=== PATIENT | female | born 1945 | race Caucasian/White ===

== ENCOUNTER 2016-11-03 14:01 | Inpatient (IN) | payer OTHER, MEDICARE ==
--- NOTE | 2016-11-03 14:30 | EDPHY ---
H & P Stated Complaint: Depression - Personal History Current Tetanus/Diphtheria Vaccine: Yes Current Tetanus Diphtheria and Acellular Pertussis (TDAP): Yes Tetanus Vaccine Date: unknown - Medical/Surgical History Hx Asthma: No Hx Chronic Respiratory Disease: No Hx Diabetes: No Hx Cardiac Disease: No Hx Renal Disease: No Hx Cirrhosis: No Hx Alcoholism: No Hx HIV/AIDS: No Hx Splenectomy or Spleen Trauma: No Other PMH: ovarian cyst removal; appendectomy; broken right wrist; laminectomy - Social History Smoking Status: Never smoked Time Seen by Provider: 11/03/16 14:29 Constitutional: Initial Vital Signs Temperature (C) 36.9 C 11/03/16 14:04 Heart Rate 61 11/03/16 14:04 Respiratory Rate 16 11/03/16 14:04 Blood Pressure 151/83 H 11/03/16 14:04 O2 Sat (%) 96 11/03/16 14:04 O2 Delivery Mode Room Air Allergies/Adverse Reactions: codeine [Codeine] Allergy (Severe, Verified 07/11/13 15:48) VOMIT Home Medications: Medication Instructions Recorded Aspirin [Aspirin 81mg (*)] 81 mg PO HS 08/27/14 Cholecalciferol (Vitamin D3) 5,000 unit PO DAILY 08/27/14 [Vitamin D3] Nebivolol HCl [Bystolic 5 mg (*)] 5 mg PO HS 08/27/14 Pravastatin Sodium 10 mg PO HS 08/27/14 QUEtiapine FUMARATE [Seroquel 25 25 mg PO HS PRN 08/27/14 mg (*)] Sennosides [Senokot] 1 - 2 each PO DAILY PRN 08/27/14 Ibuprofen [Motrin (*)] 800 mg PO Q6 PRN #50 tab 09/04/14 Topamax 25 mg PO BID 06/08/16 Medical Decision Making ED Course/Re-evaluation: CHIEF COMPLAINT: Psychiatric evaluation HISTORY OF PRESENT ILLNESS: The patient is a 71 y/o female, with a history of depression and bipolar disorder, arriving to the ED at the referral of her psychiatrist due to persistent depression over the last few months. Per her psychiatrist, the patient is struggling to care for a with a CVA and her depression is worsening. Her psychiatrist recommends admission. The patient says she goes through periodic episodes of depression, but this time it has not improved. She is compliant with her medication. She denies suicidal or homicidal ideation. No recent trauma or illness. REVIEW OF SYSTEMS: A 10 point review of systems was performed and is negative with the exception of the elements mentioned in the history of present illness. PHYSICAL EXAM: General Appearance: Alert, well hydrated, appropriate, and non-toxic appearing. Head: Atraumatic without scalp tenderness or obvious injury Eyes: Pupils equal, round, reactive to light and accommodation, EOMI, no trauma , no injection. Ears: Clear bilaterally, no perforation, normal landmarks Nose: Atraumatic, no rhinorrhea, clear. Throat: There is no erythema or exudates, no lesions, normal tonsils, mucus membranes moist. Neck: Supple, 2+ carotid upstroke, nontender, no lymphadenopathy. Respiratory: No retractions, no distress, no wheezes, and no accessory muscle use. Lungs are clear to auscultation bilaterally. Cardiovascular: Regular rate and rhythm, no murmurs, rubs, or gallops. Bilateral carotid, radial, dorsalis pedis, and posterior tibial pulses intact. Good capillary refill all extremities. Gastrointestinal: Abdomen is soft, nontender, non-distended, no masses, no rebound, no guarding, no peritoneal signs. Musculoskeletal: Normal active ROM of all extremities, atraumatic. Neurological: Alert, appropriate, and interactive. The patient has normal DTRs and non-focal cranial nerves, motor, sensory, and cerebellar exam. Skin: No rashes, good turgor, no nodules on palpation. 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 DIFFERENTIAL DIAGNOSIS: The differential diagnosis for the patient's depression included but was not limited to functional and major depression, situational depression, medication side effect, drugs, and alcohol abuse. MEDICAL DECISION MAKING: Patient is in no acute distress and is hemodynamically stable. We are awaiting psychiatric team's evaluation. Patient has known history of psychiatric disorders and is here for evaluation. 1924: Mental health inventory planner recommends admission, likely to [facility]SU. 2152: Mental health provider requests UA, TSH, and lithium level labs. 2153: Patient care signed out to Dr. Hanna at shift change pending placement. ( Delano Yusuf) [address] Yusuf pending placement. 2310 t has been accepted to 3N by Dr Madrigal, EMTALA is completed. (Gerardo Hanna) - Data Points Laboratory Results: Laboratory Results 11/03/16 14:45 11/03/16 14:45 11/03/16 11/03/16 11/03/16 14:45 14:45 14:45 WBC 8.17 10^3/uL 10^3/uL (3.80-9.50) RBC 4.53 10^6/uL 10^6/uL (4.18-5.33) Hgb 13.0 g/dL g/dL (12.6-16.3) Hct 39.7 % % (38.0-47.0) MCV 87.6 fL fL (81.5-99.8) MCH 28.7 pg pg (27.9-34.1) MCHC 32.7 g/dL g/dL (32.4-36.7) RDW 13.7 % % (11.5-15.2) Plt Count 270 10^3/uL 10^3/uL (150-400) MPV 10.0 fL fL (8.7-11.7) Neut % (Auto) 61.6 % % (39.3-74.2) Lymph % (Auto) 26.7 % % (15.0-45.0) Armstrong % (Auto) 10.5 % % (4.5-13.0) Eos % (Auto) 0.4 % L % (0.6-7.6) Baso % (Auto) 0.6 % % (0.3-1.7) Nucleat RBC Rel Count 0.0 % % (0.0-0.2) Absolute Neuts (auto) 5.03 10^3/uL 10^3/uL (1.70-6.50) Absolute Lymphs (auto) 2.18 10^3/uL 10^3/uL (1.00-3.00) Absolute Monos (auto) 0.86 10^3/uL H 10^3/uL (0.30-0.80) Absolute Eos (auto) 0.03 10^3/uL 10^3/uL (0.03-0.40) Absolute Basos (auto) 0.05 10^3/uL 10^3/uL (0.02-0.10) Absolute Nucleated RBC 0.00 10^3/uL 10^3/uL (0-0.01) Immature Gran % 0.2 % % (0.0-1.1) Immature Gran # 0.02 10^3/uL 10^3/uL (0.00-0.10) Sodium 140 mEq/L mEq/L (134-144) Potassium 4.1 mEq/L mEq/L (3.5-5.2) Chloride 102 mEq/L mEq/L (97-110) Carbon Dioxide 25 mEq/l mEq/l (22-31) Anion Gap 13 mEq/L mEq/L (8-16) BUN 12 mg/dL mg/dL (7-23) Creatinine 0.7 mg/dL mg/dL (0.6-1.0) Estimated GFR > 60 Glucose 92 mg/dL mg/dL (70-100) Calcium 10.5 mg/dL H mg/dL (8.5-10.4) TSH Pending Urine Color Urine Appearance Urine pH Ur Specific [place] Urine Protein Urine Ketones Urine Blood Urine Nitrate Urine Bilirubin Urine Urobilinogen Ur Leukocyte Esterase Ur Culture Indicated? Urine Glucose Salicylates < 1.0 mg/dL L mg/dL (2.0-20.0) Urine Opiates Screen Acetaminophen < 10 mcg/mL L mcg/mL (10.0-30.0) Urine Barbiturates Ur Phencyclidine Scrn Ur Amphetamine Screen U Benzodiazepines Scrn [place] 0.5 mEq/L L mEq/L (0.6-1.2) Urine Cocaine Screen U Marijuana (THC) Screen Ethyl Alcohol < 10 mg/dL mg/dL (0-10) 11/03/16 11/03/16 14:35 14:35 WBC RBC Hgb Hct MCV MCH MCHC RDW Plt Count MPV Neut % (Auto) Lymph % (Auto) Armstrong % (Auto) Eos % (Auto) Baso % (Auto) Nucleat RBC Rel Count Absolute Neuts (auto) Absolute Lymphs (auto) Absolute Monos (auto) Absolute Eos (auto) Absolute Basos (auto) Absolute Nucleated RBC Immature Gran % Immature Gran # Sodium Potassium Chloride Carbon Dioxide Anion Gap BUN Creatinine Estimated GFR Glucose Calcium TSH Urine Color YELLOW Urine Appearance CLEAR Urine pH 6.0 (5.0-7.5) Ur Specific [place] 1.008 (1.002-1.030) Urine Protein NEGATIVE (NEGATIVE) Urine Ketones NEGATIVE (NEGATIVE) Urine Blood NEGATIVE (NEGATIVE) Urine Nitrate NEGATIVE (NEGATIVE) Urine Bilirubin NEGATIVE (NEGATIVE) Urine Urobilinogen NEGATIVE EU EU (0.2-1.0) Ur Leukocyte Esterase TRACE H (NEGATIVE) Ur Culture Indicated? INDICATED H (NI) Urine Glucose NEGATIVE (NEGATIVE) Salicylates Urine Opiates Screen NEGATIVE (NEGATIVE) Acetaminophen Urine Barbiturates NEGATIVE (NEGATIVE) Ur Phencyclidine Scrn NEGATIVE (NEGATIVE) Ur Amphetamine Screen NEGATIVE (NEGATIVE) U Benzodiazepines Scrn NEGATIVE (NEGATIVE) [place] Urine Cocaine Screen NEGATIVE (NEGATIVE) U Marijuana (THC) Screen NEGATIVE (NEGATIVE) Ethyl Alcohol Departure - Departure Disposition: [facility] IP Clinical Impression: Severe major depression Condition: Good Referrals: Alin Carreon MD [Primary Care Provider] - As per Instructions Report Scribed for: Delano Yusuf Report Scribed by: Nallely Lauren Date of Report: 11/03/16 Time of Report: 14:37
[2016-11-03 14:58] LABS: % IMMATURE GRANULYOCYTES 0.2 % (0.0-1.1); ABSOLUTE IMMATURE GRANULOCYTES 0.02 10^3/uL (0.00-0.10); ADD DIFF? NO; ADD MORPH? NO; ADD SCAN? NO; ATYPICAL LYMPHOCYTE FLAG 10 (0-99); FRAGMENT RBC FLAG 0 (0-99); HEMATOCRIT 39.7 % (38.0-47.0); LEFT SHIFT FLG 0 (0-99); LIPEMIA HEMOLYSIS FLAG 80 (0-99); MEAN CELL HEMOGLOBIN 28.7 pg (27.9-34.1); MEAN CELL HEMOGLOBIN CONCENTR. 32.7 g/dL (32.4-36.7); MEAN CELL VOLUME 87.6 fL (81.5-99.8); PLATELET CLUMPS FLAG 20 (0-99); PLATELET COUNT 270 10^3/uL (150-400); RED BLOOD CELL COUNT 4.53 10^6/uL (4.18-5.33); RED CELL DISTRIBUTION WIDTH 13.7 % (11.5-15.2)
[2016-11-03 15:10] LABS: ANION GAP 13 mEq/L (8-16); CALCIUM 10.5 mg/dL (8.5-10.4); CARBON DIOXIDE 25 mEq/l (22-31); CHLORIDE 102 mEq/L (97-110); CREATININE 0.7 mg/dL (0.6-1.0); ETHANOL SERUM < 10 mg/dL (0-10); GLOMERULAR FILTRATION RATE > 60; GLUCOSE 92 mg/dL (70-100); POTASSIUM 4.1 mEq/L (3.5-5.2); SALICYLATE < 1.0 mg/dL (2.0-20.0); SODIUM 140 mEq/L (134-144)
[2016-11-03 23:03] LABS: LITHIUM 0.5 mEq/L (0.6-1.2)
[2016-11-03 23:05] LABS: COLOR YELLOW; LEUKOCYTE ESTERASE,URINE TRACE (NEGATIVE); NITRITE,URINE NEGATIVE (NEGATIVE)
[2016-11-03 23:08] LABS: BACTERIA TRACE /hpf (NONE SEEN)
[2016-11-04] MEDS ORDERED: NICOTINE POLACRILEX 2 MG GUM B PRN (00:45)
[2016-11-04] MEDS ORDERED: LORazepam 0.5 MG TAB PO PRN (00:45)
[2016-11-04] MEDS ORDERED: ACETAMINOPHEN 325 MG TAB PO PRN (00:45)
[2016-11-04] MEDS ORDERED: MAG HYDROX/AL HYDROX/SIMETH 30 ML UDCUP PO PRN (00:45)
--- NOTE | 2016-11-04 15:22 | BCON ---
[f rep st] BEHAVIORAL HEALTH CONSULTATION INTERNAL MEDICINE CONSULTATION. DATE OF CONSULTATION: 11/04/2016 REFERRING PHYSICIAN: Jarrett Paez MD REASON FOR REFERRAL: Medical clearance for inpatient behavioral health stay. HISTORY OF PRESENT ILLNESS: Mrs. Watters was admitted yesterday through the emergency department where she presented having been sent by her psychiatrist for persistent depression, lasting several months. The ED note reports that per her psychiatrist, she had been struggling to care for her with a CVA and has had worsening depression. She was evaluated by the mental health team and admitted for further psychiatric care. She is without acute medical complaints though she has a reduced appetite and prefers to not have to take medications more than once a day. She reports that she has been noncompliant with her medications for several days. PAST MEDICAL HISTORY: 1. Bipolar disorder. 2. Hypertension. 3. Nonobstructive coronary artery disease. 4. Osteoporosis. 5. Right wrist fracture. 6. Fracture in the right foot. PAST SURGICAL HISTORY: She has had ORIF of the right wrist. She has had a hysterectomy and a bladder suspension. ALLERGIES: There is an allergy listed to codeine. MEDICATIONS: Medications at home are listed as aspirin 81 mg p.o. at bedtime, cholecalciferol 5000 units p.o. daily, nebivolol 5 mg p.o. at bedtime though she reports she takes carvedilol, pravastatin 10 mg p.o. at bedtime, quetiapine 20 mg p.o. at bedtime, senna 1 to 2 p.o. daily p.r.n. ibuprofen 800 mg p.o. q.6 hours p.r.n., and topiramate 25 mg p.o. twice daily. 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 She lives with her . She is a nonsmoker. Nondrinker. FAMILY HISTORY: Noncontributory. REVIEW OF SYSTEMS: She reports approximately a 20-pound weight loss and a 6 kg weight loss documented in recent months in the chart. She reports a reduced appetite. She denies pain, fevers, chills, feeling excessively hot or cold, diaphoresis, chest pain, palpitations, cough, dyspnea, nausea, vomiting, constipation, diarrhea, or dysuria. Otherwise a 10-point review of systems is negative. PHYSICAL EXAMINATION: VITAL SIGNS: Blood pressure at 1 o'clock this morning was 184/84, heart rate was 67, respiratory rate was 16, oxygen saturation was 96 % on room air, temperature was 36.5 degrees centigrade. Her weight is 54.4 kg for a body mass index of 23.4. GENERAL: This is a well-nourished, well- developed woman who appears her chronologic age. Cooperative and in no acute distress. HEENT: Extraocular movements are intact. Pupils are equal, round, and reactive to light. Mucous membranes are moist. Dentition is in good condition. NECK: Supple. HEART: There is a regular rate and rhythm with no murmurs, rubs, or gallops. LUNGS: Clear to auscultation bilaterally. ABDOMEN : Soft, nontender, nondistended with normoactive bowel sounds. EXTREMITIES. There is no cyanosis, clubbing, or edema. Radial pulses are 2+ bilaterally. Pedal pulses are not palpable. NEUROLOGICAL: She is alert and oriented x3. She has a very flat affect. Cranial nerves 2-12 are grossly intact. There is no focal weakness. Sensation is intact to light touch and gait is within normal limits. LABORATORY DATA: Laboratory studies drawn in the emergency department revealed CBC which was within normal limits but for a relative decrement of eosinophils at 0.4% and a slight predominance of monocytes at 0.86. Serum chemistry showed a slightly high calcium at 10.5. Otherwise renal function and electrolytes were within normal limits. TSH was normal at 2.3. Urinalysis showed trace leukocyte esterase and 3-5 white blood cells, and a culture is pending. Toxicology screen in the serum revealed a low lithium level at 0.5. Salicylates , acetaminophen and ethyl alcohol were not detectable and urine drug screen was negative for substances of abuse. ASSESSMENT AND RECOMMENDATIONS: 1. Mental health issues pending further evaluation and management per Psychiatry and the mental health team. 2. Hypertension. There are no antihypertensives ordered. She prefers a daily medication to twice daily. I will prescribe the nebivolol 5 mg q.h.s. as it is listed in her summary of her outpatient medications. 3. Coronary artery disease, nonobstructive. Would continue aspirin and I will prescribe this. 4. Osteoporosis with history of radial fracture and a DEXA showing a T-score of -3.5, at the forearm. She should continue cholecalciferol as well as calcium supplement and consider antiresorptive therapy. With the elevated calcium, it would be reasonable to evaluate for hyperparathyroidism as well. I will add these appropriate labs onto the sample that was drawn yesterday. 5. Hypercalcemia of unclear etiology. Whether there might be hyperparathyroidism will be determined with labs. Psychiatry might contemplate whether or not it is related to long-term lithium therapy. 6. Weight loss with a normal TSH. Appears most likely to be related to her depression. Would observe for improvement in her appetite as depression is treated. 7. Possible peripheral vascular disease and possible cerebrovascular disease. There was a head CT done 2 years ago which showed evidence of an old stroke. She has no palpable pulses in her feet and with her history of hypertension, it is reasonable to suspect that she has vascular disease. She was previously on pravastatin. I hesitate to add a lot of medications while she has anorexia and weight loss but this should be continued after her discharge. Psychiatry might consider cognitive evaluation in this previously high functioning woman who was a microbiologist if her cognition does not seem to normalize with treatment of her depression. I see no medical contraindications to the patient's continued stay on the inpatient behavioral health unit or to any psychiatric medications or procedures. Thank you very much for including me in the care of this patient. Please do not hesitate to contact me or the hospitalist service should there be need for further medical evaluation. /[id number]/MODL MTDD
[2016-11-04 16:35] LABS: ALBUMIN 4.6 g/dL (3.5-5.0); CALCIUM 10.6 ng/dL (8.5-10.4); CREATININE 0.7 mg/dL (0.6-1.0)
[2016-11-04] MEDS: amLODIPine BESYLATE 5 MG TAB PO SCH (16:44)
[2016-11-04 16:47] LABS: PTH INTACT NO MINERALS 59.5 pg/ml (10.8-79.4)
[2016-11-04] MEDS: MAGNESIUM HYDROXIDE 30 ML UDCUP PO PRN (19:22)
[2016-11-04] MEDS: NEBIVOLOL HCL 5 MG TAB PO SCH (20:47)
[2016-11-05] MEDS: amLODIPine BESYLATE 5 MG TAB PO SCH (08:38)
[2016-11-05] MEDS: ASPIRIN EC 81 MG TAB PO SCH (08:52)
[2016-11-05] MEDS: CHOLECALCIFEROL VIT D3 2,000 UNITS TAB/CAP PO SCH (08:52)
--- NOTE | 2016-11-05 10:37 | SOAPPROG ---
SOAP Progress Note Assessment/Plan: Assessment: Plan: Objective: Vital Signs Temp Pulse Resp BP Pulse Ox 36.4 C 83 14 181/91 H 97 11/05/16 08:24 11/05/16 08:24 11/05/16 06:22 11/05/16 08:38 11/05/16 08:24 - Pending Discharge Pending Discharge Within 24 Hours: No Pending Discharge Within 48 Hours: No ICD10 Worksheet Patient Problems: Problems Problem Status Onset Bipolar 1 disorder, manic, moderate Acute Cystocele, midline Acute
[2016-11-05] MEDS: NEBIVOLOL HCL 5 MG TAB PO SCH (20:32)
[2016-11-05] MEDS ORDERED: QUEtiapine FUMARATE 25 MG TAB PO PRN (20:45)
[2016-11-05] MEDS: QUEtiapine FUMARATE 25 MG TAB PO SCH (21:01)
[2016-11-05] MEDS: LITHIUM CARBONATE ER 450 MG TAB PO SCH (21:01)
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
[2016-11-06] MEDS: CHOLECALCIFEROL VIT D3 2,000 UNITS TAB/CAP PO SCH (09:15)
[2016-11-06] MEDS: amLODIPine BESYLATE 5 MG TAB PO SCH (09:19)
[2016-11-06] MEDS: ASPIRIN EC 81 MG TAB PO SCH (09:20)
[2016-11-06] MEDS: LITHIUM CARBONATE ER 450 MG TAB PO SCH (20:58)
[2016-11-06] MEDS: NEBIVOLOL HCL 5 MG TAB PO SCH (20:58)
[2016-11-06] MEDS: QUEtiapine FUMARATE 25 MG TAB PO SCH (20:58)
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
[2016-11-07] MEDS: ARIPiprazole 2 MG TAB PO SCH (08:46)
[2016-11-07] MEDS: amLODIPine BESYLATE 5 MG TAB PO SCH (08:47)
[2016-11-07] MEDS: ASPIRIN EC 81 MG TAB PO SCH (08:47)
[2016-11-07] MEDS: CHOLECALCIFEROL VIT D3 2,000 UNITS TAB/CAP PO SCH (08:49)
--- NOTE | 2016-11-07 14:54 | SOAPPROG ---
SOAP Progress Note Assessment/Plan: Assessment: Plan: 11/07/16 14:26 DAY 4 UPDATE: 71 y/o MWF admitted to [address] ED after referred to ED by her [facility] psychiatrist for c/o depressive acuity with SI. Pt has h/o chronic depressove sx of recurrent nature and also has had 2 known manic episodes - most recently shortly before this admission with a subseguent switch into acute syndromal depression. major stressors a/w marital instability and pt initiating a divorce process which her resisted 3 months ago. 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 She'd been taking [id number] mg qd and [place] 150 mg bid PEDIATRIC HOSPITALIST. Her compliance with meds is uncertain PEDIATRIC HOSPITALIST and she'd not kept up with her outpt therapist. since admission she's continued to c/o vegetative sx, has poor po intake, but is beginning to disclose more openly with staff. Currently complying with inpt meds as referenced; not observed to be psychotic or actively suicidal. 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 No evidence for psychosis ASSESSMENT/PLAN: residual depressive acuity but allied with rx plan/ will reassess meds, obtain [place] level, Team to obtain history from P and son Objective: Vital Signs Temp Pulse Resp BP Pulse Ox 36.9 C 66 16 136/78 H 96 11/07/16 08:29 11/07/16 08:29 11/07/16 08:29 11/07/16 08:29 11/07/16 08:29 ICD10 Worksheet Patient Problems: Problems Problem Status Onset Bipolar 1 disorder, manic, moderate Acute Cystocele, midline Acute
[2016-11-07] MEDS: NEBIVOLOL HCL 5 MG TAB PO SCH (21:07)
[2016-11-07] MEDS: LITHIUM CARBONATE ER 450 MG TAB PO SCH (21:07)
[2016-11-07] MEDS: MAGNESIUM HYDROXIDE 30 ML UDCUP PO PRN (21:07)
[2016-11-07] MEDS: QUEtiapine FUMARATE 25 MG TAB PO PRN (21:10)
[2016-11-08] MEDS: ARIPiprazole 2 MG TAB PO SCH (08:26)
[2016-11-08] MEDS: amLODIPine BESYLATE 5 MG TAB PO SCH (08:28)
[2016-11-08] MEDS: CHOLECALCIFEROL VIT D3 2,000 UNITS TAB/CAP PO SCH (08:29)
[2016-11-08] MEDS: ASPIRIN EC 81 MG TAB PO SCH (08:29)
--- NOTE | 2016-11-08 17:00 | BAPA ---
[f rep st] ADMISSION PSYCHIATRIC ASSESSMENT DATE OF SERVICE: 11/04/2016 This dictation is from an evaluation performed on 11/04/2016. Due to an inadvertent oversight, I ne glected to dictate it at the time. This dictation is made from notes taken on 11/04/2016. CHIEF COMPLAINT: "There is no hope for me." HISTORY OF PRESENT ILLNESS: Patient is a 71-year-old, female with history of recurrent ma trey depression. She presented to the emergency department for psychiatric evaluation due to a recen t decline. She had seen her psychiatrist, Dr. Angie Chavira at [facility] who stro ngly recommended to her that she come due to worsening condition and suicidality. She states that s he has had numerous stressors recently as she and her had tried to go through divorce and fo und it to be too complicated and stressful and that her had a CVA about 2 years ago and this has caused a lot of stress between them. She states that she had to care for him but that recently she has felt so overwhelmed with her depression that he has had to care for her. She states that s he has not been eating or bathing and has lost 20 pounds in the past month. She has had trouble sle eping with inability to fall asleep or stay asleep and states she sleeps less than 2 hours per night . She has no energy and motivation and has suffered significant anhedonia. She reports having with drawn from family and friends and has not been taking care of responsibilities such as cleaning or t aking care of the bills. Patient feels very ashamed and states that she wants to . She has been taking lithium and Lexapro though the Lexapro was a recent addition about 2 weeks ago. PAST PSYCHIATRIC HISTORY: Significant for a history of depression for many years though she has als o been diagnosed with bipolar disorder due to a manic episode in 2012. She states she has not ever been hospitalized for psychiatric purposes and has had no history of suicide attempts. She sees Dr. Chavira at [facility] and a therapist, Betsey Motta. She states she has not been going recently because she feels ashamed that she has relapsed with her illness. ALLERGIES: Codeine. CURRENT MEDICATIONS: Coreg 12.5 mg daily, vitamin D3 5000 units daily, Lexapro 10 mg daily, lithium carbonate 150 mg twice daily. PAST MEDICAL HISTORY: Significant for a history of hypertension. She also may have had a CVA in 20 00 although details of this are unknown. SOCIAL HISTORY: Patient has been for 40 years. She is really from [place] but came to [facility] in 1991. She has 3 children aged 41, 39 and 30. 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 She notes some financial issues and problems with her 's health as her primary stre sses at this time. FAMILY HISTORY: The patient states that her mother was always depressed though she is not aware alonzo t she was ever treated. ADMISSION LABORATORY: CBC is normal. Serum chemistries are normal. Calcium slightly up at 10.6 an d TSH is normal at 2.3. Urinalysis reveals trace LE positive, 3-5 white cells. [place] level on ad mission was 0.5. MENTAL STATUS EXAMINATION: A healthy appearing, though marginally groomed, female. She i nteracts well with the examiner, maintaining good eye contact and overall calm and pleasant demeanor . There is significant degree of psychomotor retardation noted. Her affect is blunted, dysphoric, stable and appropriate. Her mood is described as "really depressed." Her thought process is linear and goal directed. Her thought content reveals no evidence of psychosis. She is alert and oriente d to person, place, time, and situation, and her sensorium is clear. She continues to endorse thoug hts of suicide, stating that she is helpless and hopeless and just wants to . Her intellect appe ars to be above average as evidenced by her educational and occupational histories, fund [facility], and vocabulary. Her insight and judgment appear to be good. IMPRESSION: Bipolar 1 disorder, most recent episode depressed, severe, without psychosis. Marital conflict. Chronic illness, recurrent illness. Marginal supports. The patient is a 71-year-old, female with a history of recurrent bipolar depression. She presents at this time severely depressed with significant neurovegetative dysfunction, anorexia, whit ght loss, and suicidality. She has been taking the Lexapro and lithium and will continue these for now until we can hopefully communicate with Dr. Chavira and/or make other treatment decisions drive n by her observation. Estimated length of stay is 7-10 days. /[id number]/MODL
[2016-11-08] MEDS: NEBIVOLOL HCL 5 MG TAB PO SCH (20:39)
[2016-11-08] MEDS: QUEtiapine FUMARATE 25 MG TAB PO PRN (20:40)
[2016-11-09] MEDS: LITHIUM CARBONATE ER 450 MG TAB PO SCH (08:48)
[2016-11-09] MEDS: amLODIPine BESYLATE 5 MG TAB PO SCH (08:52)
[2016-11-09] MEDS: ASPIRIN EC 81 MG TAB PO SCH (08:56)
[2016-11-09] MEDS: CHOLECALCIFEROL VIT D3 2,000 UNITS TAB/CAP PO SCH (08:56)
[2016-11-09] MEDS ORDERED: PSYLLIUM METAMUCIL 1 PKT PO SCH (09:00)
[2016-11-09] MEDS ORDERED: ARIPiprazole 5 MG TAB PO SCH (09:00)
[2016-11-09] MEDS: MAGNESIUM HYDROXIDE 30 ML UDCUP PO PRN (12:58)
--- NOTE | 2016-11-09 16:53 | SOAPPROG ---
SOAP Progress Note Assessment/Plan: Assessment: Plan: 11/07/16 14:26 DAY 4 UPDATE: 71 y/o MWF admitted to [address] ED after referred to ED by her [facility] psychiatrist for c/o depressive acuity with SI. Pt has h/o chronic depressve sx of recurrent nature and also has had 2 known manic episodes - most recently shortly before this admission with a subseguent switch into acute syndromal depression. major stressors a/w marital instability and pt initiating a divorce process which her resisted 3 months ago. 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 since admission she's continued to c/o vegetative sx, has poor po intake, but is beginning to disclose more openly with staff. Currently complying with inpt meds as referenced; not observed to be psychotic or actively suicidal. 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 No evidence for psychosis ASSESSMENT/PLAN: residual depressive acuity but allied with rx plan/ will reassess meds, obtain [place] level, Team to obtain history from [facility] and son 11/09/16 16:33 DAY 5/ Service Date 11/08/12 UPDATE: Pt has become more regressed over the past 24 hours - less verbal, increasing noncompliance with medications; neglectful of self-care continues and Nursing report her ongoing resistance to performing or allowing assistance with hygiene; she does continue to take in adequate po intake ON EXAM: Pt presents as irritable, dismissive; as I persist in the contact she expresses overt PI, states that her is in the room, co,plains that I am showing her my genitalia. she then stops talking but continues to glare at me. Nursing has not observed this overt thought disordered pattern. She does nod agreement with my moving her [place] dosing to AM which she had requested of Nursing. INTAKE/SON:contact prior to examination above; son was confirming her chronic depressive history and the occurrence of only a few venice episodes including recently when she from and went to sister's in [facility]. He also affirmed the marital history is a chronically adversarial one with a pattern of argumentatveness but no previous separations or divorce proceedings ASSESSMENT/PLAN: residual severe depressive sx; transient circumscribed psychosis evident today/ will increase Abilify to 10 mg qd, formulate more concrete Care Plan with Nursing to address hygiene needs and overall cooperativeness. Objective: Vital Signs Temp Pulse Resp BP Pulse Ox 36.8 C 62 12 151/72 H 97 11/09/16 00:30 11/09/16 08:45 11/09/16 08:45 11/09/16 08:52 11/09/16 08:45 ICD10 Worksheet Patient Problems: Problems Problem Status Onset Bipolar 1 disorder, manic, moderate Acute Cystocele, midline Acute
[2016-11-09] MEDS: QUEtiapine FUMARATE 25 MG TAB PO PRN (21:37)
[2016-11-09] MEDS: SENNOSIDES 1 TAB PO PRN (21:37)
--- NOTE | 2016-11-10 08:25 | SOAPPROG ---
SOAP Progress Note Assessment/Plan: Assessment: Plan: 11/07/16 14:26 DAY 4 UPDATE: 71 y/o MWF admitted to [address] ED after referred to ED by her [facility] psychiatrist for c/o depressive acuity with SI. Pt has h/o chronic depressve sx of recurrent nature and also has had 2 known manic episodes - most recently shortly before this admission with a subseguent switch into acute syndromal depression. major stressors a/w marital instability and pt initiating a divorce process which her resisted 3 months ago. 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 since admission she's continued to c/o vegetative sx, has poor po intake, but is beginning to disclose more openly with staff. Currently complying with inpt meds as referenced; not observed to be psychotic or actively suicidal. 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 No evidence for psychosis ASSESSMENT/PLAN: residual depressive acuity but allied with rx plan/ will reassess meds, obtain [place] level, Team to obtain history from [facility] and son 11/09/16 16:33 DAY 5/ Service Date 11/08/16 UPDATE: Pt has become more regressed over the past 24 hours - less verbal, increasing noncompliance with medications; neglectful of self-care continues and Nursing report her ongoing resistance to performing or allowing assistance with hygiene; she does continue to take in adequate po intake ON EXAM: Pt presents as irritable, dismissive; as I persist in the contact she expresses overt PI, states that her is in the room, complains that I am showing her my genitalia. she then stops talking but continues to glare at me. Nursing has not observed this overt thought disordered pattern. She does nod agreement with my moving her [place] dosing to AM which she had requested of Nursing. INTAKE/SON:contact prior to examination above; son was confirming her chronic depressive history and the occurrence of only a few venice episodes including recently when she from and went to sister's in [facility]. He also affirmed the marital history is a chronically adversarial one with a pattern of argumentatveness but no previous separations or divorce proceedings ASSESSMENT/PLAN: residual severe depressive sx; transient circumscribed psychosis evident today/ will increase Abilify to 10 mg qd, formulate more concrete Care Plan with Nursing to address hygiene needs and overall cooperativeness. 11/10/16 08:10 DAY 6/ Service Date 11/09/16 UPDATE:Progress Note dated 11/08 was referencing an exam on a wrong pt misidentified as the patient. I saw the correct pt late in the day on 11/08/16 at which time she [resented as residually depressed but not evidenceing psychosis; she engage cooperatively and was resistant to allowing a serum [place] to be drawn of have me make any medication changes. UPDATE: Team reports pt continues largely unchanged woth significant residual syndromal depression,a/w vegetativ e sign, anhedonia, neglect of hygiene; also her meds c ompliance remians mixed. ON EXAM: pt engages cooperatively, actually makes better eye contact today; expresses despair about gaining any improvement but is responsive to directive support. She c/o drowsiness with the increased dose of Abilify which I agree to DC; she agrees to giving a [place] level in the AM. She also agrees with my calling who had called to speak to speak to me. We did complete a brief speaker phone contact with and scheduled a second call tomorrow. Medication changes reviewed and pt agreeable to further discussion in AM; hygiene needs also addressed. ASSESSMENT/PLAN: residual depressive acuity/ will anticipate meds changes after followup discussion with pt in AM; care plan focus on improving personal hygeine d/w Nursing Objective: Vital Signs Temp Pulse Resp BP Pulse Ox 36.5 C 68 16 157/76 H 98 11/10/16 00:30 11/10/16 00:30 11/10/16 00:30 11/10/16 00:30 11/10/16 00:30 ICD10 Worksheet Patient Problems: Problems Problem Status Onset Bipolar 1 disorder, manic, moderate Acute Cystocele, midline Acute
[2016-11-10] MEDS: LITHIUM CARBONATE ER 450 MG TAB PO SCH (08:35)
[2016-11-10] MEDS: CARVEDILOL 6.25 MG TAB PO SCH (08:35)
[2016-11-10] MEDS: SENNOSIDES 1 TAB PO PRN (08:39)
[2016-11-10] MEDS: CHOLECALCIFEROL VIT D3 2,000 UNITS TAB/CAP PO SCH (08:57)
[2016-11-10] MEDS: ASPIRIN EC 81 MG TAB PO SCH (08:57)
[2016-11-10] MEDS ORDERED: NON-FORMULARY NEW DRUG (Carvedilol [Coreg] 12.5 MG) PO SCH (09:00)
--- NOTE | 2016-11-10 12:03 | SOAPPROG ---
SOAP Progress Note Assessment/Plan: Assessment: Plan: 11/07/16 14:26 DAY 4 UPDATE: 71 y/o MWF admitted to [address] ED after referred to ED by her [facility] psychiatrist for c/o depressive acuity with SI. Pt has h/o chronic depressve sx of recurrent nature and also has had 2 known manic episodes - most recently shortly before this admission with a subseguent switch into acute syndromal depression. major stressors a/w marital instability and pt initiating a divorce process which her resisted 3 months ago. 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 Her compliance with meds is uncertain DATA MANAGEMENT CONSULTANT and she'd not kept up with her outpt therapist. since admission she's continued to c/o vegetative sx, has poor po intake, but is beginning to disclose more openly with staff. Currently complying with inpt meds as referenced; not observed to be psychotic or actively suicidal. 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 No evidence for psychosis ASSESSMENT/PLAN: residual depressive acuity but allied with rx plan/ will reassess meds, obtain [place] level, Team to obtain history from [facility] and son 11/09/16 16:33 DAY 5/ Service Date 11/08/16 UPDATE: Pt has become more regressed over the past 24 hours - less verbal, increasing noncompliance with medications; neglectful of self-care continues and Nursing report her ongoing resistance to performing or allowing assistance with hygiene; she does continue to take in adequate po intake ON EXAM: Pt presents as irritable, dismissive; as I persist in the contact she expresses overt PI, states that her is in the room, complains that I am showing her my genitalia. she then stops talking but continues to glare at me. Nursing has not observed this overt thought disordered pattern. She does nod agreement with my moving her [place] dosing to AM which she had requested of Nursing. INTAKE/SON:contact prior to examination above; son was confirming her chronic depressive history and the occurrence of only a few venice episodes including recently when she from and went to sister's in [facility]. He also affirmed the marital history is a chronically adversarial one with a pattern of argumentatveness but no previous separations or divorce proceedings ASSESSMENT/PLAN: residual severe depressive sx; transient circumscribed psychosis evident today/ will increase Abilify to 10 mg qd, formulate more concrete Care Plan with Nursing to address hygiene needs and overall cooperativeness. 11/10/16 08:10 DAY 6/ Service Date 11/09/16 UPDATE:Progress Note dated 11/08 was referencing an exam on a wrong pt misidentified as the patient. I saw the correct pt late in the day on 11/08/16 at which time she [resented as residually depressed but not evidenceing psychosis; she engage cooperatively and was resistant to allowing a serum [place] to be drawn of have me make any medication changes. UPDATE: Team reports pt continues largely unchanged woth significant residual syndromal depression,a/w vegetativ e sign, anhedonia, neglect of hygiene; also her meds c ompliance remians mixed. ON EXAM: pt engages cooperatively, actually makes better eye contact today; expresses despair about gaining any improvement but is responsive to directive support. She c/o drowsiness with the increased dose of Abilify which I agree to DC; she agrees to giving a [place] level in the AM. She also agrees with my calling who had called to speak to speak to me. We did complete a brief speaker phone contact with and scheduled a second call tomorrow. Medication changes reviewed and pt agreeable to further discussion in AM; hygiene needs also addressed. ASSESSMENT/PLAN: residual depressive acuity/ will anticipate meds changes after followup discussion with pt in AM; care plan focus on improving personal hygiene d/w Nurs 11/10/16 DAY 7 UPDATE: vegetative syndromal depression persists per Team report with little change ON EXAM: Pt presents as calm, dysphoric, cooperative,conversant; reiterates description of syndromal depression including low self-esteem; denies SI; able to engage in discussion of medications, focus on improving self care; RN met with pt and myself to review care plan assistnce; also again spke by speaker phone with which went well in supporting pt; meds changes below reviewed with pt.; nonpsychotic ASSESSMENT/PLAN: residual depressive acuity/ begin Colace 100 mg bid, Seroquel 25 mg hs (has helped sleep previously), Geodon 40 mg bid (pt never used vs long list of AD's she's tried with little effect including Latuda); lithium level pending; will obtain baseline EKG to check QtC interval Objective: Vital Signs Temp Pulse Resp BP Pulse Ox 36.4 C 69 16 152/82 H 95 11/10/16 08:47 11/10/16 08:47 11/10/16 00:30 11/10/16 08:47 11/10/16 08:47 ICD10 Worksheet Patient Problems: Problems Problem Status Onset Bipolar 1 disorder, manic, moderate Acute Cystocele, midline Acute
[2016-11-10 12:06] LABS: LITHIUM 0.3 mEq/L (0.6-1.2)
[2016-11-10] MEDS: ZIPRASIDONE HCL 40 MG CAP PO SCH (18:31)
[2016-11-10] MEDS: QUEtiapine FUMARATE 25 MG TAB PO SCH (21:10)
[2016-11-10] MEDS: DOCUSATE SODIUM 100 MG CAP PO SCH (21:10)
[2016-11-11] MEDS: CARVEDILOL 6.25 MG TAB PO SCH (09:18)
[2016-11-11] MEDS: LITHIUM CARBONATE ER 450 MG TAB PO SCH (09:18)
[2016-11-11] MEDS: CHOLECALCIFEROL VIT D3 2,000 UNITS TAB/CAP PO SCH (10:42)
[2016-11-11] MEDS: ZIPRASIDONE HCL 40 MG CAP PO SCH ×3 (10:42→20:22)
[2016-11-11] MEDS: ASPIRIN EC 81 MG TAB PO SCH (10:42)
[2016-11-11] MEDS: DOCUSATE SODIUM 100 MG CAP PO SCH ×2 (10:42→20:23)
--- NOTE | 2016-11-11 12:57 | SOAPPROG ---
SOAP Progress Note Assessment/Plan: Assessment: Plan: 11/07/16 14:26 DAY 4 UPDATE: 71 y/o MWF admitted to [address] ED after referred to ED by her [facility] psychiatrist for c/o depressive acuity with SI. Pt has h/o chronic depressve sx of recurrent nature and also has had 2 known manic episodes - most recently shortly before this admission with a subseguent switch into acute syndromal depression. major stressors a/w marital instability and pt initiating a divorce process which her resisted 3 months ago. 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 since admission she's continued to c/o vegetative sx, has poor po intake, but is beginning to disclose more openly with staff. Currently complying with inpt meds as referenced; not observed to be psychotic or actively suicidal. 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 No evidence for psychosis ASSESSMENT/PLAN: residual depressive acuity but allied with rx plan/ will reassess meds, obtain [place] level, Team to obtain history from [facility] and son 11/09/16 16:33 DAY 5/ Service Date 11/08/16 UPDATE: Pt has become more regressed over the past 24 hours - less verbal, increasing noncompliance with medications; neglectful of self-care continues and Nursing report her ongoing resistance to performing or allowing assistance with hygiene; she does continue to take in adequate po intake ON EXAM: Pt presents as irritable, dismissive; as I persist in the contact she expresses overt PI, states that her is in the room, complains that I am showing her my genitalia. she then stops talking but continues to glare at me. Nursing has not observed this overt thought disordered pattern. She does nod agreement with my moving her [place] dosing to AM which she had requested of Nursing. INTAKE/SON:contact prior to examination above; son was confirming her chronic depressive history and the occurrence of only a few venice episodes including recently when she from and went to sister's in [facility]. He also affirmed the marital history is a chronically adversarial one with a pattern of argumentatveness but no previous separations or divorce proceedings ASSESSMENT/PLAN: residual severe depressive sx; transient circumscribed psychosis evident today/ will increase Abilify to 10 mg qd, formulate more concrete Care Plan with Nursing to address hygiene needs and overall cooperativeness. 11/10/16 08:10 DAY 6/ Service Date 11/09/16 UPDATE:Progress Note dated 11/08 was referencing an exam on a wrong pt misidentified as the patient. I saw the correct pt late in the day on 11/08/16 at which time she [resented as residually depressed but not evidenceing psychosis; she engage cooperatively and was resistant to allowing a serum [place] to be drawn of have me make any medication changes. UPDATE: Team reports pt continues largely unchanged woth significant residual syndromal depression,a/w vegetativ e sign, anhedonia, neglect of hygiene; also her meds c ompliance remians mixed. ON EXAM: pt engages cooperatively, actually makes better eye contact today; expresses despair about gaining any improvement but is responsive to directive support. She c/o drowsiness with the increased dose of Abilify which I agree to DC; she agrees to giving a [place] level in the AM. She also agrees with my calling who had called to speak to speak to me. We did complete a brief speaker phone contact with and scheduled a second call tomorrow. Medication changes reviewed and pt agreeable to further discussion in AM; hygiene needs also addressed. ASSESSMENT/PLAN: residual depressive acuity/ will anticipate meds changes after followup discussion with pt in AM; care plan focus on improving personal hygiene d/w Nurs 11/10/16 DAY 7 UPDATE: vegetative syndromal depression persists per Team report with little change ON EXAM: Pt presents as calm, dysphoric, cooperative,conversant; reiterates description of syndromal depression including low self-esteem; denies SI; able to engage in discussion of medications, focus on improving self care; RN met with pt and myself to review care plan assistnce; also again spke by speaker phone with which went well in supporting pt; meds changes below reviewed with pt.; nonpsychotic ASSESSMENT/PLAN: residual depressive acuity/ begin Colace 100 mg bid, Seroquel 25 mg hs (has helped sleep previously), Geodon 40 mg bid (pt never used vs long list of AD's she's tried with little effect including Latuda); lithium level pending; will obtain baseline EKG to check QtC interval 11/11/16 12:45 DAY 8 UPDATE : Team reports pt slept 11 hrs which pt affirms; staff observes significant residua syndromal depression c/w vegetative presentation; anhedonic , < 50% po intake, slowed speech and ambulation, passive SI ON EXAM: presents c/w mental status referenced above per staff observations; some perking up in response to directive support; is resistant to taking Geodon but did agree in this session to start today; she also heard will visit on Monday at 12n and appeared pleased about this. ASSESSMENT/PLAN: residual significant depressive acuity; sleep improving/ Ill increase [place] ER to 300 mg bid and otherwise no meds changes; continue directive supportive care plan to reinforce hygiene, po intake and milieu visibility and groups; ECG to be done this pm Objective: Vital Signs Temp Pulse Resp BP Pulse Ox 36.3 C 70 15 161/72 H 94 11/11/16 00:30 11/11/16 09:18 11/11/16 00:30 11/11/16 09:18 11/11/16 00:30 ICD10 Worksheet Patient Problems: Problems Problem Status Onset Bipolar 1 disorder, manic, moderate Acute Cystocele, midline Acute
--- NOTE | 2016-11-11 13:45 | CPEKG ---
Heart Rate: 59 RR Interval: 1017 P-R Interval: 180 QRSD Interval: 80 QT Interval: 376 QTC Interval: 373 P Hillman: 15 QRS Hillman: 35 T Wave Hillman: 10 EKG Severity - NORMAL ECG - EKG Impression: SINUS RHYTHM Electronically Signed By: Al Mcknight 11-Nov-2016 16:11:24
[2016-11-11] MEDS: QUEtiapine FUMARATE 25 MG TAB PO SCH (20:23)
[2016-11-11] MEDS: LITHIUM CARBONATE ER 300 MG TAB PO SCH (20:23)
[2016-11-12] MEDS: LITHIUM CARBONATE ER 300 MG TAB PO SCH ×2 (07:57→22:26)
[2016-11-12] MEDS: DOCUSATE SODIUM 100 MG CAP PO SCH ×2 (07:57→22:25)
[2016-11-12] MEDS: CARVEDILOL 6.25 MG TAB PO SCH (07:57)
[2016-11-12] MEDS: ASPIRIN EC 81 MG TAB PO SCH (08:00)
[2016-11-12] MEDS: ZIPRASIDONE HCL 40 MG CAP PO SCH (08:01)
[2016-11-12] MEDS: SENNOSIDES 1 TAB PO PRN (08:06)
[2016-11-12] MEDS: CHOLECALCIFEROL VIT D3 2,000 UNITS TAB/CAP PO SCH (14:31)
--- NOTE | 2016-11-12 16:23 | SOAPPROG ---
SOAP Progress Note Assessment/Plan: Assessment:Female with bipolar disorder with some psychosis noted at admission. [place] level = 0.3 (11/10). She is complaining of sedation on Geodon. She is also on Seroquel. She reports continued depression. She does have a history of zoe. Plan: Will increase lithium and change to E[place]al[place]. Will be all at night. Check lithium level, TSH, and BUN/CR on Monday. Will change Geodon to all at night at a decreased dosage (60 MG) Might consider adding Lamictal for depressive symptoms. 11/12/16 16:19 11/12/16 16:29 11/12/16 16:29 Subjective: She reports she feels tired since the Geodon was added yesterday. She is not sure of her mood. She denies SI. She did eat breakfast, but she is not sure she will eat lunch. She is not happy about how she reacts on the medications. Depression - 8/10 (10 the worst). Objective: Vital Signs Temp Pulse Resp BP Pulse Ox 36.6 C 68 12 154/74 H 97 11/12/16 00:30 11/12/16 07:57 11/12/16 00:30 11/12/16 07:57 11/12/16 00:30 Thin Caucasin female of below average height, lying in the bad, eyes closed throughout much of the interview. Speech- terse statements, depressed tone of voice. Mood- "Depressed." Affect- tired. Thought Process- linear and goal directed. Thought Content - No SI/HI. NO AH/VH. No evidence of psychosis. - Time Spent With Patient Time Spent With Patient: 25 minutes - Pending Discharge Pending Discharge Within 24 Hours: No Pending Discharge Within 48 Hours: No ICD10 Worksheet Patient Problems: Problems Problem Status Onset Bipolar 1 disorder, manic, moderate Acute Cystocele, midline Acute
[2016-11-12] MEDS: MAGNESIUM HYDROXIDE 30 ML UDCUP PO PRN (16:42)
[2016-11-13] MEDS: DOCUSATE SODIUM 100 MG CAP PO SCH ×2 (08:22→20:58)
[2016-11-13] MEDS: CARVEDILOL 6.25 MG TAB PO SCH (08:23)
[2016-11-13] MEDS: CHOLECALCIFEROL VIT D3 2,000 UNITS TAB/CAP PO SCH (08:24)
[2016-11-13] MEDS: ASPIRIN EC 81 MG TAB PO SCH (08:24)
--- NOTE | 2016-11-13 13:22 | SOAPPROG ---
SOAP Progress Note Assessment/Plan: Assessment:Female with bipolar disorder with some psychosis noted at admission. [place] level = 0.3 (11/10). She was complaining of sedation on Geodon, but she now reprots she was unable to sleep with no Seroquel present. She reprots refusing medications due to being on too many medications, but she also complains of any changes to her medications. She reports some concerns about being on lithium because it is causing her to loss her kiersten. She did sleep a lot last night and she refused her night time medications. She was noted to sleep 8.5 hours last night per staff. She reports continued depression. She appears confused, and has some trouble remember what she is told. It is unclear if language plays in part in this. She does have a history of zoe, but there is not current evidence of zoe. Plan: Continue lithium. Will discuss further with patient tomorrow. Will change Geodon to all at night at a decreased dosage (60 MG). Did discuss the risks given her history of heaart disease, but she ws not open to making any further changes at this time. Might consider adding Lamictal for depressive symptoms. It is not clear this was not tried by itself in the past. It would be used as a supplement if restarted. Monitor her sleep. Encouraged to remain out of bed today, so thaat her nighttime sleep is not affected by daytime sleep. 11/12/16 16:19 11/12/16 16:29 11/12/16 16:29 11/13/16 13:15 11/13/16 13:28 Subjective: SHe reports she could not sleep last night without the Seroquel. She denies SI/ HI. She reports depression 6-810. She remembers she was on Lamictal in the past , but it did not seem to do anything. She also reports being on Topamax, which she felt was helpful, but it then stopped working, so she was switched to lithium . She companies that lithium is making her hair fall out. She wondered why lithium is now once a day. She wondered about the Geodon being once a day. She reports she refused some medications yesterday because she is on too many medications. Objective: Vital Signs Temp Pulse Resp BP Pulse Ox 36.2 C 74 16 156/84 H 95 11/13/16 08:00 11/13/16 08:23 11/13/16 08:00 11/13/16 08:23 11/13/16 08:00 Thin, female, with shuffling gate. Good eye contact. Depressed tone of voice. Affect- Blunted, weary. Thought Process- linear, contradicted herself at times. Thought Process- No SI/HI. No AH/VH. - Time Spent With Patient Time Spent With Patient: 25 - Pending Discharge Pending Discharge Within 24 Hours: No Pending Discharge Within 48 Hours: No ICD10 Worksheet Patient Problems: Problems Problem Status Onset Bipolar 1 disorder, manic, moderate Acute Cystocele, midline Acute
[2016-11-13] MEDS ORDERED: ZIPRASIDONE HCL 20 MG CAP PO SCH (16:00)
[2016-11-13] MEDS ORDERED: ZIPRASIDONE HCL 40 MG CAP PO SCH ×2 (16:00)
[2016-11-13] MEDS ORDERED: LITHIUM CARBONATE ER 450 MG TAB PO SCH (21:00)
[2016-11-14] MEDS: CARVEDILOL 6.25 MG TAB PO SCH (09:22)
[2016-11-14] MEDS: DOCUSATE SODIUM 100 MG CAP PO SCH ×2 (09:22→21:13)
[2016-11-14] MEDS: ASPIRIN EC 81 MG TAB PO SCH (09:25)
[2016-11-14] MEDS: CHOLECALCIFEROL VIT D3 2,000 UNITS TAB/CAP PO SCH (09:25)
--- NOTE | 2016-11-14 11:53 | SOAPPROG ---
SOAP Progress Note Assessment/Plan: Assessment: Plan: 11/07/16 14:26 DAY 4 UPDATE: 71 y/o MWF admitted to [address] ED after referred to ED by her [facility] psychiatrist for c/o depressive acuity with SI. Pt has h/o chronic depressve sx of recurrent nature and also has had 2 known manic episodes - most recently shortly before this admission with a subseguent switch into acute syndromal depression. major stressors a/w marital instability and pt initiating a divorce process which her resisted 3 months ago. 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 since admission she's continued to c/o vegetative sx, has poor po intake, but is beginning to disclose more openly with staff. Currently complying with inpt meds as referenced; not observed to be psychotic or actively suicidal. 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 No evidence for psychosis ASSESSMENT/PLAN: residual depressive acuity but allied with rx plan/ will reassess meds, obtain [place] level, Team to obtain history from [facility] and son 11/09/16 16:33 DAY 5/ Service Date 11/08/16 UPDATE: Pt has become more regressed over the past 24 hours - less verbal, increasing noncompliance with medications; neglectful of self-care continues and Nursing report her ongoing resistance to performing or allowing assistance with hygiene; she does continue to take in adequate po intake ON EXAM: Pt presents as irritable, dismissive; as I persist in the contact she expresses overt PI, states that her is in the room, complains that I am showing her my genitalia. she then stops talking but continues to glare at me. Nursing has not observed this overt thought disordered pattern. She does nod agreement with my moving her [place] dosing to AM which she had requested of Nursing. INTAKE/SON:contact prior to examination above; son was confirming her chronic depressive history and the occurrence of only a few venice episodes including recently when she from and went to sister's in [facility]. He also affirmed the marital history is a chronically adversarial one with a pattern of argumentatveness but no previous separations or divorce proceedings ASSESSMENT/PLAN: residual severe depressive sx; transient circumscribed psychosis evident today/ will increase Abilify to 10 mg qd, formulate more concrete Care Plan with Nursing to address hygiene needs and overall cooperativeness. 11/10/16 08:10 DAY 6/ Service Date 11/09/16 UPDATE:Progress Note dated 11/08 was referencing an exam on a wrong pt misidentified as the patient. I saw the correct pt late in the day on 11/08/16 at which time she [resented as residually depressed but not evidenceing psychosis; she engage cooperatively and was resistant to allowing a serum [place] to be drawn of have me make any medication changes. UPDATE: Team reports pt continues largely unchanged woth significant residual syndromal depression,a/w vegetativ e sign, anhedonia, neglect of hygiene; also her meds c ompliance remians mixed. ON EXAM: pt engages cooperatively, actually makes better eye contact today; expresses despair about gaining any improvement but is responsive to directive support. She c/o drowsiness with the increased dose of Abilify which I agree to DC; she agrees to giving a [place] level in the AM. She also agrees with my calling who had called to speak to speak to me. We did complete a brief speaker phone contact with and scheduled a second call tomorrow. Medication changes reviewed and pt agreeable to further discussion in AM; hygiene needs also addressed. ASSESSMENT/PLAN: residual depressive acuity/ will anticipate meds changes after followup discussion with pt in AM; care plan focus on improving personal hygiene d/w Nurs 11/10/16 DAY 7 UPDATE: vegetative syndromal depression persists per Team report with little change ON EXAM: Pt presents as calm, dysphoric, cooperative,conversant; reiterates description of syndromal depression including low self-esteem; denies SI; able to engage in discussion of medications, focus on improving self care; RN met with pt and myself to review care plan assistance; also again spoke by speaker phone with which went well in supporting pt; meds changes below reviewed with pt.; nonpsychotic ASSESSMENT/PLAN: residual depressive acuity/ begin Colace 100 mg bid, Seroquel 25 mg hs (has helped sleep previously), Geodon 40 mg bid (pt never used vs long list of AD's she's tried with little effect including Latuda); lithium level pending; will obtain baseline EKG to check QtC interval 11/11/16 12:45 DAY 8 UPDATE : Team reports pt slept 11 hrs which pt affirms; staff observes significant residual syndromal depression c/w vegetative presentation; anhedonic , < 50% po intake, slowed speech and ambulation, passive SI; [place] level 0.3 ON EXAM: presents c/w mental status referenced above per staff observations; some perking up in response to directive support; is resistant to taking Geodon but did agree in this session to start today; she also heard will visit on Monday at 12n and appeared pleased about this. ASSESSMENT/PLAN: residual significant depressive acuity; sleep improving/ Ill increase [place] ER to 300 mg bid and otherwise no meds changes; continue directive supportive care plan to reinforce hygiene, po intake and milieu visibility and groups; ECG to be done this pm 11/14/16 DAY ' UPDATE: Nursing reports pt remains with residual vegetative syndromal depression thru the weekend but is showing some incremental improvement; med were changed over weekend - increasing [place] to 900 mg hs and decreasing Geodon to 60 mg qd and stopping Seroquel; po intake remains about 50 % and sleep variable. Pt had positive visit with apollobnd and son Monday, continues to attend selective groups ON EXAM: Pt appears brighter and speech less slowed; describes effective visit with family as referenced; meds reviewed as changed back to regimen begun on as unclear why changed and pt concerned about the changes. denies side effects and regimen in early phase. Pt positive about speaker phone conference with in AM. He reports to me in telephone contact that she looked better to him and son during visit. ASSESSMENT/PLAN: slow-paced improvement noted descriptively/ continue CP as d/ w Nursing; meds changes as referenced Medications Generic Name Dose Route Start Last Admin Trade Name Chipq PRN Reason Stop Dose Admin Quetiapine Fumarate 25 mg 11/14/16 21:00 Seroquel PO 05/13/17 20:59 HS CLYDE Ziprasidone 40 mg 11/14/16 18:00 Geodon PO 05/13/17 17:59 BIDMEAL CLYDE [place] Carbonate 300 mg 11/14/16 21:00 Lithobid PO 05/13/17 20:59 BID CLYDE 11/14/16 11:39 Objective: Vital Signs Temp Pulse Resp BP Pulse Ox 36.8 C 78 16 139/72 H 95 11/14/16 08:43 11/14/16 08:43 11/14/16 06:20 11/14/16 08:43 11/14/16 08:43 ICD10 Worksheet Patient Problems: Problems Problem Status Onset Bipolar 1 disorder, manic, moderate Acute Cystocele, midline Acute
[2016-11-14] MEDS ORDERED: LITHIUM CARBONATE ER 300 MG TAB PO ONE ×2 (13:05→13:30)
[2016-11-14] MEDS ORDERED: ZIPRASIDONE HCL 40 MG CAP ONE (13:06)
[2016-11-14] MEDS: ZIPRASIDONE HCL 40 MG CAP PO SCH ×2 (13:09→21:14)
[2016-11-14] MEDS: LITHIUM CARBONATE ER 300 MG TAB PO SCH ×2 (13:09→21:13)
[2016-11-14] MEDS ORDERED: ZIPRASIDONE HCL 40 MG CAP PO ONE (13:30)
[2016-11-14] MEDS ORDERED: ZIPRASIDONE HCL 40 MG CAP PO SCH (16:00)
[2016-11-14] MEDS ORDERED: QUEtiapine FUMARATE 25 MG TAB PO SCH (21:00)
[2016-11-15] MEDS: CARVEDILOL 6.25 MG TAB PO SCH (08:54)
[2016-11-15] MEDS: ZIPRASIDONE HCL 40 MG CAP PO SCH ×2 (08:54→17:20)
[2016-11-15] MEDS: LITHIUM CARBONATE ER 300 MG TAB PO SCH ×2 (08:54→19:01)
[2016-11-15] MEDS: DOCUSATE SODIUM 100 MG CAP PO SCH ×2 (08:54→22:21)
[2016-11-15] MEDS: SENNOSIDES 1 TAB PO PRN (08:59)
[2016-11-15] MEDS: CHOLECALCIFEROL VIT D3 2,000 UNITS TAB/CAP PO SCH (09:01)
[2016-11-15] MEDS: ASPIRIN EC 81 MG TAB PO SCH (09:01)
--- NOTE | 2016-11-15 12:08 | SOAPPROG ---
SOAP Progress Note Assessment/Plan: Assessment: Plan: 11/07/16 14:26 DAY 4 UPDATE: 71 y/o MWF admitted to [address] ED after referred to ED by her [facility] psychiatrist for c/o depressive acuity with SI. Pt has h/o chronic depressve sx of recurrent nature and also has had 2 known manic episodes - most recently shortly before this admission with a subseguent switch into acute syndromal depression. major stressors a/w marital instability and pt initiating a divorce process which her resisted 3 months ago. 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 She'd been taking [id number] mg qd and Walton 150 mg bid GENERAL MAGISTRATE. Her compliance with meds is uncertain GENERAL MAGISTRATE and she'd not kept up with her outpt therapist. since admission she's continued to c/o vegetative sx, has poor po intake, but is beginning to disclose more openly with staff. Currently complying with inpt meds as referenced; not observed to be psychotic or actively suicidal. 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 No evidence for psychosis ASSESSMENT/PLAN: residual depressive acuity but allied with rx plan/ will reassess meds, obtain Walton level, Team to obtain history from [facility] and son 11/09/16 16:33 DAY 5/ Service Date 11/08/16 UPDATE: Pt has become more regressed over the past 24 hours - less verbal, increasing noncompliance with medications; neglectful of self-care continues and Nursing report her ongoing resistance to performing or allowing assistance with hygiene; she does continue to take in adequate po intake ON EXAM: Pt presents as irritable, dismissive; as I persist in the contact she expresses overt PI, states that her is in the room, complains that I am showing her my genitalia. she then stops talking but continues to glare at me. Nursing has not observed this overt thought disordered pattern. She does nod agreement with my moving her Walton dosing to AM which she had requested of Nursing. INTAKE/SON:contact prior to examination above; son was confirming her chronic depressive history and the occurrence of only a few venice episodes including recently when she from and went to sister's in [facility]. He also affirmed the marital history is a chronically adversarial one with a pattern of argumentatveness but no previous separations or divorce proceedings ASSESSMENT/PLAN: residual severe depressive sx; transient circumscribed psychosis evident today/ will increase Abilify to 10 mg qd, formulate more concrete Care Plan with Nursing to address hygiene needs and overall cooperativeness. 11/10/16 08:10 DAY 6/ Service Date 11/09/16 UPDATE:Progress Note dated 11/08 was referencing an exam on a wrong pt misidentified as the patient. I saw the correct pt late in the day on 11/08/16 at which time she [resented as residually depressed but not evidenceing psychosis; she engage cooperatively and was resistant to allowing a serum [place] to be drawn of have me make any medication changes. UPDATE: Team reports pt continues largely unchanged woth significant residual syndromal depression,a/w vegetativ e sign, anhedonia, neglect of hygiene; also her meds c ompliance remians mixed. ON EXAM: pt engages cooperatively, actually makes better eye contact today; expresses despair about gaining any improvement but is responsive to directive support. She c/o drowsiness with the increased dose of Abilify which I agree to DC; she agrees to giving a Walton level in the AM. She also agrees with my calling who had called to speak to speak to me. We did complete a brief speaker phone contact with and scheduled a second call tomorrow. Medication changes reviewed and pt agreeable to further discussion in AM; hygiene needs also addressed. ASSESSMENT/PLAN: residual depressive acuity/ will anticipate meds changes after followup discussion with pt in AM; care plan focus on improving personal hygiene d/w Nurs 11/10/16 DAY 7 UPDATE: vegetative syndromal depression persists per Team report with little change ON EXAM: Pt presents as calm, dysphoric, cooperative,conversant; reiterates description of syndromal depression including low self-esteem; denies SI; able to engage in discussion of medications, focus on improving self care; RN met with pt and myself to review care plan assistance; also again spoke by speaker phone with which went well in supporting pt; meds changes below reviewed with pt.; nonpsychotic ASSESSMENT/PLAN: residual depressive acuity/ begin Colace 100 mg bid, Seroquel 25 mg hs (has helped sleep previously), Geodon 40 mg bid (pt never used vs long list of AD's she's tried with little effect including Latuda); lithium level pending; will obtain baseline EKG to check QtC interval 11/11/16 12:45 DAY 8 UPDATE : Team reports pt slept 11 hrs which pt affirms; staff observes significant residual syndromal depression c/w vegetative presentation; anhedonic , < 50% po intake, slowed speech and ambulation, passive SI; Walton level 0.3 ON EXAM: presents c/w mental status referenced above per staff observations; some perking up in response to directive support; is resistant to taking Geodon but did agree in this session to start today; she also heard will visit on Monday at 12n and appeared pleased about this. ASSESSMENT/PLAN: residual significant depressive acuity; sleep improving/ Ill increase Walton ER to 300 mg bid and otherwise no meds changes; continue directive supportive care plan to reinforce hygiene, po intake and milieu visibility and groups; ECG to be done this pm 11/14/16 DAY ' UPDATE: Nursing reports pt remains with residual vegetative syndromal depression thru the weekend but is showing some incremental improvement; med were changed over weekend - increasing Walton to 900 mg hs and decreasing Geodon to 60 mg qd and stopping Seroquel; po intake remains about 50 % and sleep variable. Pt had positive visit with apollobnd and son Monday, continues to attend selective groups ON EXAM: Pt appears brighter and speech less slowed; describes effective visit with family as referenced; meds reviewed as changed back to regimen begun on as unclear why changed and pt concerned about the changes. denies side effects and regimen in early phase. Pt positive about speaker phone conference with in AM. He reports to me in telephone contact that she looked better to him and son during visit. ASSESSMENT/PLAN: slow-paced improvement noted descriptively/ continue CP as d/ w Nursing; meds changes as referenced Medications Generic Name Dose Route Start Last Admin Trade Name Archie PRN Reason Stop Dose Admin Quetiapine Fumarate 25 mg 11/14/16 21:00 Seroquel PO 05/13/17 20:59 HS CLYDE Ziprasidone 40 mg 11/14/16 18:00 Geodon PO 05/13/17 17:59 BIDMEAL CLYDE [place] Carbonate 300 mg 11/14/16 21:00 Lithobid PO 05/13/17 20:59 BID CLYDE 11/14/16 11:39 11/15/16 11:51 DAY ' UPDATE: Nursing reports pt continues to make paced progress with some improvement in po intake, more regular group attendance, lessening syndromal depressed appearance; pt c//w cares and meds ON EXAM: Pt [resents as cooperativ, calm, conversant; today speech more slowed and tone more negativistic; pt particularly c/o memory slippage with limited response to my supportive/clarification input; also c/o oversleeping this AM and sense of being transiently sedated this AM; we agree on halving the Seroquel dose; unfortunately I was late to bring pt in for the speaker phone meeting with and the telephone line remains busy for extended period - pt thought phone was off hook and had gone out as he has fixed routine about when he is home or out. She understands we will try later; she also understands that I will request Dietary consultation as she wishes to gain weight - reporting a 15 lb wgt loss over the duration of the current depression. Objective: Vital Signs Temp Pulse Resp BP Pulse Ox 36.5 C 65 14 145/72 H 97 11/15/16 09:20 11/15/16 09:20 11/15/16 09:20 11/15/16 09:20 11/15/16 09:20 ICD10 Worksheet Patient Problems: Problems Problem Status Onset Bipolar 1 disorder, manic, moderate Acute Cystocele, midline Acute
--- NOTE | 2016-11-15 12:11 | SOAPPROG ---
SOAP Progress Note Assessment/Plan: Assessment: Plan: 11/07/16 14:26 DAY 4 UPDATE: 71 y/o MWF admitted to [address] ED after referred to ED by her [facility] psychiatrist for c/o depressive acuity with SI. Pt has h/o chronic depressve sx of recurrent nature and also has had 2 known manic episodes - most recently shortly before this admission with a subseguent switch into acute syndromal depression. major stressors a/w marital instability and pt initiating a divorce process which her resisted 3 months ago. 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 She'd been taking [id number] mg qd and [place] 150 mg bid INSOLE AND OUTSOLE SPLITTER. Her compliance with meds is uncertain INSOLE AND OUTSOLE SPLITTER and she'd not kept up with her outpt therapist. since admission she's continued to c/o vegetative sx, has poor po intake, but is beginning to disclose more openly with staff. Currently complying with inpt meds as referenced; not observed to be psychotic or actively suicidal. 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 No evidence for psychosis ASSESSMENT/PLAN: residual depressive acuity but allied with rx plan/ will reassess meds, obtain [place] level, Team to obtain history from [facility] and son 11/09/16 16:33 DAY 5/ Service Date 11/08/16 UPDATE: Pt has become more regressed over the past 24 hours - less verbal, increasing noncompliance with medications; neglectful of self-care continues and Nursing report her ongoing resistance to performing or allowing assistance with hygiene; she does continue to take in adequate po intake ON EXAM: Pt presents as irritable, dismissive; as I persist in the contact she expresses overt PI, states that her is in the room, complains that I am showing her my genitalia. she then stops talking but continues to glare at me. Nursing has not observed this overt thought disordered pattern. She does nod agreement with my moving her [place] dosing to AM which she had requested of Nursing. INTAKE/SON:contact prior to examination above; son was confirming her chronic depressive history and the occurrence of only a few venice episodes including recently when she from and went to sister's in [facility]. He also affirmed the marital history is a chronically adversarial one with a pattern of argumentatveness but no previous separations or divorce proceedings ASSESSMENT/PLAN: residual severe depressive sx; transient circumscribed psychosis evident today/ will increase Abilify to 10 mg qd, formulate more concrete Care Plan with Nursing to address hygiene needs and overall cooperativeness. 11/10/16 08:10 DAY 6/ Service Date 11/09/16 UPDATE:Progress Note dated 11/08 was referencing an exam on a wrong pt misidentified as the patient. I saw the correct pt late in the day on 11/08/16 at which time she [resented as residually depressed but not evidenceing psychosis; she engage cooperatively and was resistant to allowing a serum [place] to be drawn of have me make any medication changes. UPDATE: Team reports pt continues largely unchanged woth significant residual syndromal depression,a/w vegetativ e sign, anhedonia, neglect of hygiene; also her meds c ompliance remians mixed. ON EXAM: pt engages cooperatively, actually makes better eye contact today; expresses despair about gaining any improvement but is responsive to directive support. She c/o drowsiness with the increased dose of Abilify which I agree to DC; she agrees to giving a [place] level in the AM. She also agrees with my calling who had called to speak to speak to me. We did complete a brief speaker phone contact with and scheduled a second call tomorrow. Medication changes reviewed and pt agreeable to further discussion in AM; hygiene needs also addressed. ASSESSMENT/PLAN: residual depressive acuity/ will anticipate meds changes after followup discussion with pt in AM; care plan focus on improving personal hygiene d/w Nurs 11/10/16 DAY 7 UPDATE: vegetative syndromal depression persists per Team report with little change ON EXAM: Pt presents as calm, dysphoric, cooperative,conversant; reiterates description of syndromal depression including low self-esteem; denies SI; able to engage in discussion of medications, focus on improving self care; RN met with pt and myself to review care plan assistance; also again spoke by speaker phone with which went well in supporting pt; meds changes below reviewed with pt.; nonpsychotic ASSESSMENT/PLAN: residual depressive acuity/ begin Colace 100 mg bid, Seroquel 25 mg hs (has helped sleep previously), Geodon 40 mg bid (pt never used vs long list of AD's she's tried with little effect including Latuda); lithium level pending; will obtain baseline EKG to check QtC interval 11/11/16 12:45 DAY 8 UPDATE : Team reports pt slept 11 hrs which pt affirms; staff observes significant residual syndromal depression c/w vegetative presentation; anhedonic , < 50% po intake, slowed speech and ambulation, passive SI; [place] level 0.3 ON EXAM: presents c/w mental status referenced above per staff observations; some perking up in response to directive support; is resistant to taking Geodon but did agree in this session to start today; she also heard will visit on Monday at 12n and appeared pleased about this. ASSESSMENT/PLAN: residual significant depressive acuity; sleep improving/ Ill increase [place] ER to 300 mg bid and otherwise no meds changes; continue directive supportive care plan to reinforce hygiene, po intake and milieu visibility and groups; ECG to be done this pm 11/14/16 DAY ' UPDATE: Nursing reports pt remains with residual vegetative syndromal depression thru the weekend but is showing some incremental improvement; med were changed over weekend - increasing [place] to 900 mg hs and decreasing Geodon to 60 mg qd and stopping Seroquel; po intake remains about 50 % and sleep variable. Pt had positive visit with apollobnd and son Monday, continues to attend selective groups ON EXAM: Pt appears brighter and speech less slowed; describes effective visit with family as referenced; meds reviewed as changed back to regimen begun on as unclear why changed and pt concerned about the changes. denies side effects and regimen in early phase. Pt positive about speaker phone conference with in AM. He reports to me in telephone contact that she looked better to him and son during visit. ASSESSMENT/PLAN: slow-paced improvement noted descriptively/ continue CP as d/ w Nursing; meds changes as referenced Medications Generic Name Dose Route Start Last Admin Trade Name Archie PRN Reason Stop Dose Admin Quetiapine Fumarate 25 mg 11/14/16 21:00 Seroquel PO 05/13/17 20:59 HS CLYDE Ziprasidone 40 mg 11/14/16 18:00 Geodon PO 05/13/17 17:59 BIDMEAL CLYDE [place] Carbonate 300 mg 11/14/16 21:00 Lithobid PO 05/13/17 20:59 BID CLYDE 11/14/16 11:39 11/15/16 11:51 DAY ' UPDATE: Nursing reports pt continues to make paced progress with some improvement in po intake, more regular group attendance, lessening syndromal depressed appearance; pt c//w cares and meds ON EXAM: Pt presents as cooperative, calm, conversant; today speech more slowed and tone more negativistic; pt particularly c/o memory slippage with limited response to my supportive/clarification input; also c/o oversleeping this AM and sense of being transiently sedated this AM; we agree on halving the Seroquel dose; unfortunately I was late to bring pt in for the speaker phone meeting with and the telephone line remains busy for extended period - pt thought phone was off hook and had gone out as he has fixed routine about when he is home or out. She understands we will try later; she also understands that I will request Dietary consultation as she wishes to gain weight - reporting a 15 lb wgt loss over the duration of the current depression. ASSESSMENT/PLAN: residual depressive acuity- less improvement over last 24 hours / will decrease Seroquel to 12.5 mg, continue reintegrative CP, request Dietary consultation, try to reach later today Objective: Vital Signs Temp Pulse Resp BP Pulse Ox 36.5 C 65 14 145/72 H 97 11/15/16 09:20 11/15/16 09:20 11/15/16 09:20 11/15/16 09:20 11/15/16 09:20 ICD10 Worksheet Patient Problems: Problems Problem Status Onset Bipolar 1 disorder, manic, moderate Acute Cystocele, midline Acute
[2016-11-15] MEDS ORDERED: QUEtiapine FUMARATE 25 MG TAB PO SCH (21:00)
--- NOTE | 2016-11-16 08:00 | SOAPPROG ---
SOAP Progress Note Assessment/Plan: Assessment: Plan: 11/07/16 14:26 DAY 4 UPDATE: 71 y/o MWF admitted to [address] ED after referred to ED by her [facility] psychiatrist for c/o depressive acuity with SI. Pt has h/o chronic depressve sx of recurrent nature and also has had 2 known manic episodes - most recently shortly before this admission with a subseguent switch into acute syndromal depression. major stressors a/w marital instability and pt initiating a divorce process which her resisted 3 months ago. 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 Her compliance with meds is uncertain STRATEGIC DEVELOPMENT MANAGER and she'd not kept up with her outpt therapist. since admission she's continued to c/o vegetative sx, has poor po intake, but is beginning to disclose more openly with staff. Currently complying with inpt meds as referenced; not observed to be psychotic or actively suicidal. 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 No evidence for psychosis ASSESSMENT/PLAN: residual depressive acuity but allied with rx plan/ will reassess meds, obtain Watervliet level, Team to obtain history from [facility] and son 11/09/16 16:33 DAY 5/ Service Date 11/08/16 UPDATE: Pt has become more regressed over the past 24 hours - less verbal, increasing noncompliance with medications; neglectful of self-care continues and Nursing report her ongoing resistance to performing or allowing assistance with hygiene; she does continue to take in adequate po intake ON EXAM: Pt presents as irritable, dismissive; as I persist in the contact she expresses overt PI, states that her is in the room, complains that I am showing her my genitalia. she then stops talking but continues to glare at me. Nursing has not observed this overt thought disordered pattern. She does nod agreement with my moving her Watervliet dosing to AM which she had requested of Nursing. INTAKE/SON:contact prior to examination above; son was confirming her chronic depressive history and the occurrence of only a few venice episodes including recently when she from and went to sister's in [facility]. He also affirmed the marital history is a chronically adversarial one with a pattern of argumentatveness but no previous separations or divorce proceedings ASSESSMENT/PLAN: residual severe depressive sx; transient circumscribed psychosis evident today/ will increase Abilify to 10 mg qd, formulate more concrete Care Plan with Nursing to address hygiene needs and overall cooperativeness. 11/10/16 08:10 DAY 6/ Service Date 11/09/16 UPDATE:Progress Note dated 11/08 was referencing an exam on a wrong pt misidentified as the patient. I saw the correct pt late in the day on 11/08/16 at which time she [resented as residually depressed but not evidenceing psychosis; she engage cooperatively and was resistant to allowing a serum Watervliet to be drawn of have me make any medication changes. UPDATE: Team reports pt continues largely unchanged woth significant residual syndromal depression,a/w vegetativ e sign, anhedonia, neglect of hygiene; also her meds c ompliance remians mixed. ON EXAM: pt engages cooperatively, actually makes better eye contact today; expresses despair about gaining any improvement but is responsive to directive support. She c/o drowsiness with the increased dose of Abilify which I agree to DC; she agrees to giving a Watervliet level in the AM. She also agrees with my calling who had called to speak to speak to me. We did complete a brief speaker phone contact with and scheduled a second call tomorrow. Medication changes reviewed and pt agreeable to further discussion in AM; hygiene needs also addressed. ASSESSMENT/PLAN: residual depressive acuity/ will anticipate meds changes after followup discussion with pt in AM; care plan focus on improving personal hygiene d/w Nurs 11/10/16 DAY 7 UPDATE: vegetative syndromal depression persists per Team report with little change ON EXAM: Pt presents as calm, dysphoric, cooperative,conversant; reiterates description of syndromal depression including low self-esteem; denies SI; able to engage in discussion of medications, focus on improving self care; RN met with pt and myself to review care plan assistance; also again spoke by speaker phone with which went well in supporting pt; meds changes below reviewed with pt.; nonpsychotic ASSESSMENT/PLAN: residual depressive acuity/ begin Colace 100 mg bid, Seroquel 25 mg hs (has helped sleep previously), Geodon 40 mg bid (pt never used vs long list of AD's she's tried with little effect including Latuda); lithium level pending; will obtain baseline EKG to check QtC interval 11/11/16 12:45 DAY 8 UPDATE : Team reports pt slept 11 hrs which pt affirms; staff observes significant residual syndromal depression c/w vegetative presentation; anhedonic , < 50% po intake, slowed speech and ambulation, passive SI; Watervliet level 0.3 ON EXAM: presents c/w mental status referenced above per staff observations; some perking up in response to directive support; is resistant to taking Geodon but did agree in this session to start today; she also heard will visit on Monday at 12n and appeared pleased about this. ASSESSMENT/PLAN: residual significant depressive acuity; sleep improving/ Ill increase Watervliet ER to 300 mg bid and otherwise no meds changes; continue directive supportive care plan to reinforce hygiene, po intake and milieu visibility and groups; ECG to be done this pm 11/14/16 DAY ' UPDATE: Nursing reports pt remains with residual vegetative syndromal depression thru the weekend but is showing some incremental improvement; med were changed over weekend - increasing Watervliet to 900 mg hs and decreasing Geodon to 60 mg qd and stopping Seroquel; po intake remains about 50 % and sleep variable. Pt had positive visit with apollobnd and son Monday, continues to attend selective groups ON EXAM: Pt appears brighter and speech less slowed; describes effective visit with family as referenced; meds reviewed as changed back to regimen begun on as unclear why changed and pt concerned about the changes. denies side effects and regimen in early phase. Pt positive about speaker phone conference with in AM. He reports to me in telephone contact that she looked better to him and son during visit. ASSESSMENT/PLAN: slow-paced improvement noted descriptively/ continue CP as d/ w Nursing; meds changes as referenced Medications Generic Name Dose Route Start Last Admin Trade Name Archie PRN Reason Stop Dose Admin Quetiapine Fumarate 25 mg 11/14/16 21:00 Seroquel PO 05/13/17 20:59 HS CLYDE Ziprasidone 40 mg 11/14/16 18:00 Geodon PO 05/13/17 17:59 BIDMEAL CLYDE Watervliet Carbonate 300 mg 11/14/16 21:00 Lithobid PO 05/13/17 20:59 BID CLYDE 11/14/16 11:39 11/15/16 11:51 DAY ' UPDATE: Nursing reports pt continues to make paced progress with some improvement in po intake, more regular group attendance, lessening syndromal depressed appearance; pt c//w cares and meds ON EXAM: Pt presents as cooperative, calm, conversant; today speech more slowed and tone more negativistic; pt particularly c/o memory slippage with limited response to my supportive/clarification input; also c/o oversleeping this AM and sense of being transiently sedated this AM; we agree on halving the Seroquel dose; unfortunately I was late to bring pt in for the speaker phone meeting with and the telephone line remained busy for extended period - pt thought phone was off hook and had gone out as he has fixed routine about when he is home or out. She understands we will try later; she also understands that I will request Dietary consultation as she wishes to gain weight - reporting a 15 lb wgt loss over the duration of the current depression. ASSESSMENT/PLAN: residual depressive acuity- less improvement over last 24 hours / will decrease Seroquel to 12.5 mg, continue reintegrative CP, request Dietary consultation, try to reach later today 11/16/16 07:59 Objective: Vital Signs Temp Pulse Resp BP Pulse Ox 36.5 C 61 15 160/74 H 95 11/16/16 06:15 11/16/16 06:15 11/16/16 06:15 11/16/16 06:15 11/16/16 06:15 ICD10 Worksheet Patient Problems: Problems Problem Status Onset Bipolar 1 disorder, manic, moderate Acute Cystocele, midline Acute
[2016-11-16] MEDS: ZIPRASIDONE HCL 40 MG CAP PO SCH (09:46)
[2016-11-16] MEDS: CHOLECALCIFEROL VIT D3 2,000 UNITS TAB/CAP PO SCH (09:49)
[2016-11-16] MEDS: ASPIRIN EC 81 MG TAB PO SCH (09:49)
[2016-11-16] MEDS: ESCITALOPRAM OXALATE 10 MG TAB PO SCH (09:57)
[2016-11-16] MEDS: DOCUSATE SODIUM 100 MG CAP PO SCH ×2 (09:57→20:54)
[2016-11-16] MEDS: CARVEDILOL 6.25 MG TAB PO SCH (09:57)
[2016-11-16] MEDS: LITHIUM CARBONATE ER 300 MG TAB PO SCH ×2 (09:57→20:54)
[2016-11-16] MEDS: MAGNESIUM HYDROXIDE 30 ML UDCUP PO PRN (10:01)
[2016-11-16] MEDS: ZIPRASIDONE HCL 20 MG CAP PO SCH ×2 (10:44→17:28)
--- NOTE | 2016-11-16 15:49 | SOAPPROG ---
SOAP Progress Note Assessment/Plan: Assessment: Plan: 11/07/16 14:26 DAY 4 UPDATE: 71 y/o MWF admitted to [address] ED after referred to ED by her [facility] psychiatrist for c/o depressive acuity with SI. Pt has h/o chronic depressve sx of recurrent nature and also has had 2 known manic episodes - most recently shortly before this admission with a subseguent switch into acute syndromal depression. major stressors a/w marital instability and pt initiating a divorce process which her resisted 3 months ago. 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 She'd been taking [id number] mg qd and Preston 150 mg bid HUMANE AGENT. Her compliance with meds is uncertain HUMANE AGENT and she'd not kept up with her outpt therapist. since admission she's continued to c/o vegetative sx, has poor po intake, but is beginning to disclose more openly with staff. Currently complying with inpt meds as referenced; not observed to be psychotic or actively suicidal. 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 No evidence for psychosis ASSESSMENT/PLAN: residual depressive acuity but allied with rx plan/ will reassess meds, obtain Preston level, Team to obtain history from [facility] and son 11/09/16 16:33 DAY 5/ Service Date 11/08/16 UPDATE: Pt has become more regressed over the past 24 hours - less verbal, increasing noncompliance with medications; neglectful of self-care continues and Nursing report her ongoing resistance to performing or allowing assistance with hygiene; she does continue to take in adequate po intake ON EXAM: Pt presents as irritable, dismissive; as I persist in the contact she expresses overt PI, states that her is in the room, complains that I am showing her my genitalia. she then stops talking but continues to glare at me. Nursing has not observed this overt thought disordered pattern. She does nod agreement with my moving her Preston dosing to AM which she had requested of Nursing. INTAKE/SON:contact prior to examination above; son was confirming her chronic depressive history and the occurrence of only a few venice episodes including recently when she from and went to sister's in [facility]. He also affirmed the marital history is a chronically adversarial one with a pattern of argumentatveness but no previous separations or divorce proceedings ASSESSMENT/PLAN: residual severe depressive sx; transient circumscribed psychosis evident today/ will increase Abilify to 10 mg qd, formulate more concrete Care Plan with Nursing to address hygiene needs and overall cooperativeness. 11/10/16 08:10 DAY 6/ Service Date 11/09/16 UPDATE:Progress Note dated 11/08 was referencing an exam on a wrong pt misidentified as the patient. I saw the correct pt late in the day on 11/08/16 at which time she [resented as residually depressed but not evidenceing psychosis; she engage cooperatively and was resistant to allowing a serum Preston to be drawn of have me make any medication changes. UPDATE: Team reports pt continues largely unchanged woth significant residual syndromal depression,a/w vegetativ e sign, anhedonia, neglect of hygiene; also her meds c ompliance remians mixed. ON EXAM: pt engages cooperatively, actually makes better eye contact today; expresses despair about gaining any improvement but is responsive to directive support. She c/o drowsiness with the increased dose of Abilify which I agree to DC; she agrees to giving a Preston level in the AM. She also agrees with my calling who had called to speak to speak to me. We did complete a brief speaker phone contact with and scheduled a second call tomorrow. Medication changes reviewed and pt agreeable to further discussion in AM; hygiene needs also addressed. ASSESSMENT/PLAN: residual depressive acuity/ will anticipate meds changes after followup discussion with pt in AM; care plan focus on improving personal hygiene d/w Nurs 11/10/16 DAY 7 UPDATE: vegetative syndromal depression persists per Team report with little change ON EXAM: Pt presents as calm, dysphoric, cooperative,conversant; reiterates description of syndromal depression including low self-esteem; denies SI; able to engage in discussion of medications, focus on improving self care; RN met with pt and myself to review care plan assistance; also again spoke by speaker phone with which went well in supporting pt; meds changes below reviewed with pt.; nonpsychotic ASSESSMENT/PLAN: residual depressive acuity/ begin Colace 100 mg bid, Seroquel 25 mg hs (has helped sleep previously), Geodon 40 mg bid (pt never used vs long list of AD's she's tried with little effect including Latuda); lithium level pending; will obtain baseline EKG to check QtC interval 11/11/16 12:45 DAY 8 UPDATE : Team reports pt slept 11 hrs which pt affirms; staff observes significant residual syndromal depression c/w vegetative presentation; anhedonic , < 50% po intake, slowed speech and ambulation, passive SI; Preston level 0.3 ON EXAM: presents c/w mental status referenced above per staff observations; some perking up in response to directive support; is resistant to taking Geodon but did agree in this session to start today; she also heard will visit on Monday at 12n and appeared pleased about this. ASSESSMENT/PLAN: residual significant depressive acuity; sleep improving/ Ill increase Preston ER to 300 mg bid and otherwise no meds changes; continue directive supportive care plan to reinforce hygiene, po intake and milieu visibility and groups; ECG to be done this pm 11/14/16 DAY ' UPDATE: Nursing reports pt remains with residual vegetative syndromal depression thru the weekend but is showing some incremental improvement; med were changed over weekend - increasing Preston to 900 mg hs and decreasing Geodon to 60 mg qd and stopping Seroquel; po intake remains about 50 % and sleep variable. Pt had positive visit with apollobnd and son Monday, continues to attend selective groups ON EXAM: Pt appears brighter and speech less slowed; describes effective visit with family as referenced; meds reviewed as changed back to regimen begun on as unclear why changed and pt concerned about the changes. denies side effects and regimen in early phase. Pt positive about speaker phone conference with in AM. He reports to me in telephone contact that she looked better to him and son during visit. ASSESSMENT/PLAN: slow-paced improvement noted descriptively/ continue CP as d/ w Nursing; meds changes as referenced Medications Generic Name Dose Route Start Last Admin Trade Name Archie PRN Reason Stop Dose Admin Quetiapine Fumarate 25 mg 11/14/16 21:00 Seroquel PO 05/13/17 20:59 HS CLYDE Ziprasidone 40 mg 11/14/16 18:00 Geodon PO 05/13/17 17:59 BIDMEAL CLYDE Preston Carbonate 300 mg 11/14/16 21:00 Lithobid PO 05/13/17 20:59 BID CLYDE 11/14/16 11:39 11/15/16 11:51 DAY ' UPDATE: Nursing reports pt continues to make paced progress with some improvement in po intake, more regular group attendance, lessening syndromal depressed appearance; pt c//w cares and meds ON EXAM: Pt presents as cooperative, calm, conversant; today speech more slowed and tone more negativistic; pt particularly c/o memory slippage with limited response to my supportive/clarification input; also c/o oversleeping this AM and sense of being transiently sedated this AM; we agree on halving the Seroquel dose; unfortunately I was late to bring pt in for the speaker phone meeting with and the telephone line remained busy for extended period - pt thought phone was off hook and had gone out as he has fixed routine about when he is home or out. She understands we will try later; she also understands that I will request Dietary consultation as she wishes to gain weight - reporting a 15 lb wgt loss over the duration of the current depression. ASSESSMENT/PLAN: residual depressive acuity- less improvement over last 24 hours / will decrease Seroquel to 12.5 mg, continue reintegrative CP, request Dietary consultation, try to reach later t 11/16/16 15:42 DAY ' UPDATE: Nursing reports pt slept less wee with decreased Seroquel dosing; appetite slightly better; residual depressive sx INTAKE; case reviewed yesterday PM with Dr. Chavira - she reports pt's depressive episodes typically clear slowly; recommends resuming trial of Lexapro which was worked and many AD's have failed previously; agrees with other meds altho states pt typically sedates by hx on multiple anti[psychotics. ON EXAM: residual dysphoria but slightly briter and more availble GEOVANNA; + telephonic response to HOC in speaker phone contact; meds reviewed in detail with changes as reference; more responsive today to clarification and support. ASSESSMENT/PLAN: slightly improved/ will continue reintegrative CP as d/w Nursing Medications Generic Name Dose Route Start Last Admin Trade Name Freq PRN Reason Stop Dose Admin Preston Carbonate 300 mg 11/14/16 21:00 11/16/16 09:57 Lithobid PO 05/13/17 20:59 300 mg BID CLYDE Escitalopram Oxalate 10 mg 11/16/16 09:30 11/16/16 09:57 Lexapro PO 05/15/17 09:29 10 mg DAILY CLYDE Ziprasidone 20 mg 11/16/16 10:30 11/16/16 10:44 Geodon PO 05/15/17 10:29 20 mg BIDMEAL CLYDE Objective: Vital Signs Temp Pulse Resp BP Pulse Ox 36.2 C 62 16 184/77 H 99 11/16/16 08:00 11/16/16 08:00 11/16/16 08:00 11/16/16 08:00 11/16/16 08:00 ICD10 Worksheet Patient Problems: Problems Problem Status Onset Bipolar 1 disorder, manic, moderate Acute Cystocele, midline Acute
[2016-11-17] MEDS: ESCITALOPRAM OXALATE 10 MG TAB PO SCH (08:26)
[2016-11-17] MEDS: LITHIUM CARBONATE ER 300 MG TAB PO SCH ×2 (08:26→21:33)
[2016-11-17] MEDS: ZIPRASIDONE HCL 20 MG CAP PO SCH (08:26)
[2016-11-17] MEDS: CARVEDILOL 6.25 MG TAB PO SCH (08:26)
[2016-11-17] MEDS: SENNOSIDES 1 TAB PO PRN (08:30)
--- NOTE | 2016-11-17 08:38 | SOAPPROG ---
SOAP Progress Note Assessment/Plan: Assessment: Plan: 11/07/16 14:26 DAY 4 UPDATE: 71 y/o MWF admitted to [address] ED after referred to ED by her [facility] psychiatrist for c/o depressive acuity with SI. Pt has h/o chronic depressve sx of recurrent nature and also has had 2 known manic episodes - most recently shortly before this admission with a subseguent switch into acute syndromal depression. major stressors a/w marital instability and pt initiating a divorce process which her resisted 3 months ago. She percher to [place] to be with sister in an alleged manic state, switched into depression and returned home and then worsened which led to this admission after visit with her psychiatrist. 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 since admission she's continued to c/o vegetative sx, has poor po intake, but is beginning to disclose more openly with staff. Currently complying with inpt meds as referenced; not observed to be psychotic or actively suicidal. 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 No evidence for psychosis ASSESSMENT/PLAN: residual depressive acuity but allied with rx plan/ will reassess meds, obtain Pontotoc level, Team to obtain history from [facility] and son 11/09/16 16:33 DAY 5/ Service Date 11/08/16 UPDATE: Pt has become more regressed over the past 24 hours - less verbal, increasing noncompliance with medications; neglectful of self-care continues and Nursing report her ongoing resistance to performing or allowing assistance with hygiene; she does continue to take in adequate po intake ON EXAM: Pt presents as irritable, dismissive; as I persist in the contact she expresses overt PI, states that her is in the room, complains that I am showing her my genitalia. she then stops talking but continues to glare at me. Nursing has not observed this overt thought disordered pattern. She does nod agreement with my moving her Pontotoc dosing to AM which she had requested of Nursing. INTAKE/SON:contact prior to examination above; son was confirming her chronic depressive history and the occurrence of only a few venice episodes including recently when she from and went to sister's in [facility]. He also affirmed the marital history is a chronically adversarial one with a pattern of argumentatveness but no previous separations or divorce proceedings ASSESSMENT/PLAN: residual severe depressive sx; transient circumscribed psychosis evident today/ will increase Abilify to 10 mg qd, formulate more concrete Care Plan with Nursing to address hygiene needs and overall cooperativeness. 11/10/16 08:10 DAY 6/ Service Date 11/09/16 UPDATE:Progress Note dated 11/08 was referencing an exam on a wrong pt misidentified as the patient. I saw the correct pt late in the day on 11/08/16 at which time she [resented as residually depressed but not evidenceing psychosis; she engage cooperatively and was resistant to allowing a serum Pontotoc to be drawn of have me make any medication changes. UPDATE: Team reports pt continues largely unchanged woth significant residual syndromal depression,a/w vegetativ e sign, anhedonia, neglect of hygiene; also her meds c ompliance remians mixed. ON EXAM: pt engages cooperatively, actually makes better eye contact today; expresses despair about gaining any improvement but is responsive to directive support. She c/o drowsiness with the increased dose of Abilify which I agree to DC; she agrees to giving a Pontotoc level in the AM. She also agrees with my calling who had called to speak to speak to me. We did complete a brief speaker phone contact with and scheduled a second call tomorrow. Medication changes reviewed and pt agreeable to further discussion in AM; hygiene needs also addressed. ASSESSMENT/PLAN: residual depressive acuity/ will anticipate meds changes after followup discussion with pt in AM; care plan focus on improving personal hygiene d/w Nurs 11/10/16 DAY 7 UPDATE: vegetative syndromal depression persists per Team report with little change ON EXAM: Pt presents as calm, dysphoric, cooperative,conversant; reiterates description of syndromal depression including low self-esteem; denies SI; able to engage in discussion of medications, focus on improving self care; RN met with pt and myself to review care plan assistance; also again spoke by speaker phone with which went well in supporting pt; meds changes below reviewed with pt.; nonpsychotic ASSESSMENT/PLAN: residual depressive acuity/ begin Colace 100 mg bid, Seroquel 25 mg hs (has helped sleep previously), Geodon 40 mg bid (pt never used vs long list of AD's she's tried with little effect including Latuda); lithium level pending; will obtain baseline EKG to check QtC interval 11/11/16 12:45 DAY 8 UPDATE : Team reports pt slept 11 hrs which pt affirms; staff observes significant residual syndromal depression c/w vegetative presentation; anhedonic , < 50% po intake, slowed speech and ambulation, passive SI; Pontotoc level 0.3 ON EXAM: presents c/w mental status referenced above per staff observations; some perking up in response to directive support; is resistant to taking Geodon but did agree in this session to start today; she also heard will visit on Monday at 12n and appeared pleased about this. ASSESSMENT/PLAN: residual significant depressive acuity; sleep improving/ Ill increase Pontotoc ER to 300 mg bid and otherwise no meds changes; continue directive supportive care plan to reinforce hygiene, po intake and milieu visibility and groups; ECG to be done this pm 11/14/16 DAY ' UPDATE: Nursing reports pt remains with residual vegetative syndromal depression thru the weekend but is showing some incremental improvement; med were changed over weekend - increasing Pontotoc to 900 mg hs and decreasing Geodon to 60 mg qd and stopping Seroquel; po intake remains about 50 % and sleep variable. Pt had positive visit with apollobnd and son Monday, continues to attend selective groups ON EXAM: Pt appears brighter and speech less slowed; describes effective visit with family as referenced; meds reviewed as changed back to regimen begun on as unclear why changed and pt concerned about the changes. denies side effects and regimen in early phase. Pt positive about speaker phone conference with in AM. He reports to me in telephone contact that she looked better to him and son during visit. ASSESSMENT/PLAN: slow-paced improvement noted descriptively/ continue CP as d/ w Nursing; meds changes as referenced Medications Generic Name Dose Route Start Last Admin Trade Name Archie PRN Reason Stop Dose Admin Quetiapine Fumarate 25 mg 11/14/16 21:00 Seroquel PO 05/13/17 20:59 HS CLYDE Ziprasidone 40 mg 11/14/16 18:00 Geodon PO 05/13/17 17:59 BIDMEAL CLYDE Pontotoc Carbonate 300 mg 11/14/16 21:00 Lithobid PO 05/13/17 20:59 BID CLYDE 11/14/16 11:39 11/15/16 11:51 DAY ' UPDATE: Nursing reports pt continues to make paced progress with some improvement in po intake, more regular group attendance, lessening syndromal depressed appearance; pt c//w cares and meds ON EXAM: Pt presents as cooperative, calm, conversant; today speech more slowed and tone more negativistic; pt particularly c/o memory slippage with limited response to my supportive/clarification input; also c/o oversleeping this AM and sense of being transiently sedated this AM; we agree on halving the Seroquel dose; unfortunately I was late to bring pt in for the speaker phone meeting with and the telephone line remained busy for extended period - pt thought phone was off hook and had gone out as he has fixed routine about when he is home or out. She understands we will try later; she also understands that I will request Dietary consultation as she wishes to gain weight - reporting a 15 lb wgt loss over the duration of the current depression. ASSESSMENT/PLAN: residual depressive acuity- less improvement over last 24 hours / will decrease Seroquel to 12.5 mg, continue reintegrative CP, request Dietary consultation, try to reach later t 11/16/16 15:42 DAY ' UPDATE: Nursing reports pt slept less with decreased Seroquel dosing; appetite slightly better; residual depressive sx INTAKE; case reviewed yesterday PM with Dr. Chavira - she reports pt's depressive episodes typically clear slowly; recommends resuming trial of Lexapro which was worked and many AD's have failed previously; agrees with other meds altho states pt typically sedates by hx on multiple anti[psychotics. ON EXAM: residual dysphoria but slightly briter and more available GEOVANNA; + telephonic response to HOC in speaker phone contact; meds reviewed in detail with changes as referenced; more responsive today to clarification and support. ASSESSMENT/PLAN: slightly improved/ will continue reintegrative CP as d/w Nursing Medications Generic Name Dose Route Start Last Admin Trade Name Freq PRN Reason Stop Dose Admin Pontotoc Carbonate 300 mg 11/14/16 21:00 11/16/16 09:57 Lithobid PO 05/13/17 20:59 300 mg BID CLYDE Escitalopram Oxalate 10 mg 11/16/16 09:30 11/16/16 09:57 Lexapro PO 05/15/17 09:29 10 mg DAILY CLYDE Ziprasidone 20 mg 11/16/16 10:30 11/16/16 10:44 Geodon PO 05/15/17 10:29 20 mg BIDMEAL CLYDE 11/17/16 08:36 DAY ' UPDATE: Objective: Vital Signs Temp Pulse Resp BP Pulse Ox 36.6 C 79 14 158/71 H 92 11/17/16 00:30 11/17/16 08:26 11/17/16 00:30 11/17/16 08:26 11/17/16 00:30 ICD10 Worksheet Patient Problems: Problems Problem Status Onset Bipolar 1 disorder, manic, moderate Acute Cystocele, midline Acute
[2016-11-17] MEDS: ASPIRIN EC 81 MG TAB PO SCH (10:14)
[2016-11-17] MEDS: CHOLECALCIFEROL VIT D3 2,000 UNITS TAB/CAP PO SCH (10:14)
[2016-11-17] MEDS: DOCUSATE SODIUM 100 MG CAP PO SCH ×2 (10:14→21:32)
--- NOTE | 2016-11-17 13:30 | SOAPPROG ---
SOAP Progress Note Assessment/Plan: Assessment: Plan: 11/07/16 14:26 DAY 4 UPDATE: 71 y/o MWF admitted to [address] ED after referred to ED by her [facility] psychiatrist for c/o depressive acuity with SI. Pt has h/o chronic depressve sx of recurrent nature and also has had 2 known manic episodes - most recently shortly before this admission with a subseguent switch into acute syndromal depression. major stressors a/w marital instability and pt initiating a divorce process which her resisted 3 months ago. 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 since admission she's continued to c/o vegetative sx, has poor po intake, but is beginning to disclose more openly with staff. Currently complying with inpt meds as referenced; not observed to be psychotic or actively suicidal. 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 No evidence for psychosis ASSESSMENT/PLAN: residual depressive acuity but allied with rx plan/ will reassess meds, obtain Thompson level, Team to obtain history from [facility] and son 11/09/16 16:33 DAY 5/ Service Date 11/08/16 UPDATE: Pt has become more regressed over the past 24 hours - less verbal, increasing noncompliance with medications; neglectful of self-care continues and Nursing report her ongoing resistance to performing or allowing assistance with hygiene; she does continue to take in adequate po intake ON EXAM: Pt presents as irritable, dismissive; as I persist in the contact she expresses overt PI, states that her is in the room, complains that I am showing her my genitalia. she then stops talking but continues to glare at me. Nursing has not observed this overt thought disordered pattern. She does nod agreement with my moving her Thompson dosing to AM which she had requested of Nursing. INTAKE/SON:contact prior to examination above; son was confirming her chronic depressive history and the occurrence of only a few venice episodes including recently when she from and went to sister's in [facility]. He also affirmed the marital history is a chronically adversarial one with a pattern of argumentatveness but no previous separations or divorce proceedings ASSESSMENT/PLAN: residual severe depressive sx; transient circumscribed psychosis evident today/ will increase Abilify to 10 mg qd, formulate more concrete Care Plan with Nursing to address hygiene needs and overall cooperativeness. 11/10/16 08:10 DAY 6/ Service Date 11/09/16 UPDATE:Progress Note dated 11/08 was referencing an exam on a wrong pt misidentified as the patient. I saw the correct pt late in the day on 11/08/16 at which time she [resented as residually depressed but not evidenceing psychosis; she engage cooperatively and was resistant to allowing a serum Thompson to be drawn of have me make any medication changes. UPDATE: Team reports pt continues largely unchanged woth significant residual syndromal depression,a/w vegetativ e sign, anhedonia, neglect of hygiene; also her meds c ompliance remians mixed. ON EXAM: pt engages cooperatively, actually makes better eye contact today; expresses despair about gaining any improvement but is responsive to directive support. She c/o drowsiness with the increased dose of Abilify which I agree to DC; she agrees to giving a Thompson level in the AM. She also agrees with my calling who had called to speak to speak to me. We did complete a brief speaker phone contact with and scheduled a second call tomorrow. Medication changes reviewed and pt agreeable to further discussion in AM; hygiene needs also addressed. ASSESSMENT/PLAN: residual depressive acuity/ will anticipate meds changes after followup discussion with pt in AM; care plan focus on improving personal hygiene d/w Nurs 11/10/16 DAY 7 UPDATE: vegetative syndromal depression persists per Team report with little change ON EXAM: Pt presents as calm, dysphoric, cooperative,conversant; reiterates description of syndromal depression including low self-esteem; denies SI; able to engage in discussion of medications, focus on improving self care; RN met with pt and myself to review care plan assistance; also again spoke by speaker phone with which went well in supporting pt; meds changes below reviewed with pt.; nonpsychotic ASSESSMENT/PLAN: residual depressive acuity/ begin Colace 100 mg bid, Seroquel 25 mg hs (has helped sleep previously), Geodon 40 mg bid (pt never used vs long list of AD's she's tried with little effect including Latuda); lithium level pending; will obtain baseline EKG to check QtC interval 11/11/16 12:45 DAY 8 UPDATE : Team reports pt slept 11 hrs which pt affirms; staff observes significant residual syndromal depression c/w vegetative presentation; anhedonic , < 50% po intake, slowed speech and ambulation, passive SI; Thompson level 0.3 ON EXAM: presents c/w mental status referenced above per staff observations; some perking up in response to directive support; is resistant to taking Geodon but did agree in this session to start today; she also heard will visit on Monday at 12n and appeared pleased about this. ASSESSMENT/PLAN: residual significant depressive acuity; sleep improving/ Ill increase Thompson ER to 300 mg bid and otherwise no meds changes; continue directive supportive care plan to reinforce hygiene, po intake and milieu visibility and groups; ECG to be done this pm 11/14/16 DAY ' UPDATE: Nursing reports pt remains with residual vegetative syndromal depression thru the weekend but is showing some incremental improvement; med were changed over weekend - increasing Thompson to 900 mg hs and decreasing Geodon to 60 mg qd and stopping Seroquel; po intake remains about 50 % and sleep variable. Pt had positive visit with apollobnd and son Monday, continues to attend selective groups ON EXAM: Pt appears brighter and speech less slowed; describes effective visit with family as referenced; meds reviewed as changed back to regimen begun on as unclear why changed and pt concerned about the changes. denies side effects and regimen in early phase. Pt positive about speaker phone conference with in AM. He reports to me in telephone contact that she looked better to him and son during visit. ASSESSMENT/PLAN: slow-paced improvement noted descriptively/ continue CP as d/ w Nursing; meds changes as referenced Medications Generic Name Dose Route Start Last Admin Trade Name Arhcie PRN Reason Stop Dose Admin Quetiapine Fumarate 25 mg 11/14/16 21:00 Seroquel PO 05/13/17 20:59 HS CLYDE Ziprasidone 40 mg 11/14/16 18:00 Geodon PO 05/13/17 17:59 BIDMEAL CLYDE Thompson Carbonate 300 mg 11/14/16 21:00 Lithobid PO 05/13/17 20:59 BID CLYDE 11/14/16 11:39 11/15/16 11:51 DAY ' UPDATE: Nursing reports pt continues to make paced progress with some improvement in po intake, more regular group attendance, lessening syndromal depressed appearance; pt c//w cares and meds ON EXAM: Pt presents as cooperative, calm, conversant; today speech more slowed and tone more negativistic; pt particularly c/o memory slippage with limited response to my supportive/clarification input; also c/o oversleeping this AM and sense of being transiently sedated this AM; we agree on halving the Seroquel dose; unfortunately I was late to bring pt in for the speaker phone meeting with and the telephone line remained busy for extended period - pt thought phone was off hook and had gone out as he has fixed routine about when he is home or out. She understands we will try later; she also understands that I will request Dietary consultation as she wishes to gain weight - reporting a 15 lb wgt loss over the duration of the current depression. ASSESSMENT/PLAN: residual depressive acuity- less improvement over last 24 hours / will decrease Seroquel to 12.5 mg, continue reintegrative CP, request Dietary consultation, try to reach later t 11/16/16 15:42 DAY ' UPDATE: Nursing reports pt slept less with decreased Seroquel dosing; appetite slightly better; residual depressive sx INTAKE; case reviewed yesterday PM with Dr. Chavira - she reports pt's depressive episodes typically clear slowly; recommends resuming trial of Lexapro which was worked and many AD's have failed previously; agrees with other meds altho states pt typically sedates by hx on multiple anti[psychotics. ON EXAM: residual dysphoria but slightly briter and more available GEOVANNA; + telephonic response to HOC in speaker phone contact; meds reviewed in detail with changes as referenced; more responsive today to clarification and support. ASSESSMENT/PLAN: slightly improved/ will continue reintegrative CP as d/w Nursing Medications Generic Name Dose Route Start Last Admin Trade Name Freq PRN Reason Stop Dose Admin Thompson Carbonate 300 mg 11/14/16 21:00 11/16/16 09:57 Lithobid PO 05/13/17 20:59 300 mg BID CLYDE Escitalopram Oxalate 10 mg 11/16/16 09:30 11/16/16 09:57 Lexapro PO 05/15/17 09:29 10 mg DAILY CLYDE Ziprasidone 20 mg 11/16/16 10:30 11/16/16 10:44 Geodon PO 05/15/17 10:29 20 mg BIDMEAL CLYDE 11/17/16 08:36 DAY ' UPDATE: Pt presents with residual syndromal depressive acuity -vegetative sx remain prominent per Nursing report oN EXAM: Pt presents with depressive facies, dysphoric mood blunted with slowed speech; no change if not slitely more retarded; meds reviewed in detail, Dietary consultation reviewed and D/W Nursing with patient; pt responsive to clarification and support. ASSESSMENT/PLAN: unimproved over last 24hs/ meds changed as referenced; CP continued as d/w Nursing Medications Generic Name Dose Route Start Last Admin Trade Name Freq PRN Reason Stop Dose Admin Escitalopram Oxalate 20 mg 11/18/16 09:00 Lexapro PO 05/17/17 08:59 DAILY CLYDE Thompson Carbonate 300 mg 11/14/16 21:00 11/17/16 08:26 Lithobid PO 05/13/17 20:59 300 mg BID CLYDE Modafinil 100 mg 11/17/16 13:30 Provigil PO 05/16/17 13:29 DAILY CLYDE Quetiapine Fumarate 25 mg 11/17/16 21:00 Seroquel PO 05/16/17 20:59 HS CLYDE Objective: Vital Signs Temp Pulse Resp BP Pulse Ox 36.9 C 79 14 158/71 H 95 11/17/16 08:25 11/17/16 08:26 11/17/16 00:30 11/17/16 08:26 11/17/16 08:25 ICD10 Worksheet Patient Problems: Problems Problem Status Onset Bipolar 1 disorder, manic, moderate Acute Cystocele, midline Acute
[2016-11-17] MEDS: MODAFINIL 100 MG TAB PO SCH (14:21)
[2016-11-17] MEDS: QUEtiapine FUMARATE 25 MG TAB PO SCH (21:33)
--- NOTE | 2016-11-18 06:40 | SOAPPROG ---
SOAP Progress Note Assessment/Plan: Assessment: Plan: 11/07/16 14:26 DAY 4 UPDATE: 71 y/o MWF admitted to [address] ED after referred to ED by her [facility] psychiatrist for c/o depressive acuity with SI. Pt has h/o chronic depressve sx of recurrent nature and also has had 2 known manic episodes - most recently shortly before this admission with a subseguent switch into acute syndromal depression. major stressors a/w marital instability and pt initiating a divorce process which her resisted 3 months ago. 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 since admission she's continued to c/o vegetative sx, has poor po intake, but is beginning to disclose more openly with staff. Currently complying with inpt meds as referenced; not observed to be psychotic or actively suicidal. 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 No evidence for psychosis ASSESSMENT/PLAN: residual depressive acuity but allied with rx plan/ will reassess meds, obtain [place] level, Team to obtain history from [facility] and son 11/09/16 16:33 DAY 5/ Service Date 11/08/16 UPDATE: Pt has become more regressed over the past 24 hours - less verbal, increasing noncompliance with medications; neglectful of self-care continues and Nursing report her ongoing resistance to performing or allowing assistance with hygiene; she does continue to take in adequate po intake ON EXAM: Pt presents as irritable, dismissive; as I persist in the contact she expresses overt PI, states that her is in the room, complains that I am showing her my genitalia. she then stops talking but continues to glare at me. Nursing has not observed this overt thought disordered pattern. She does nod agreement with my moving her [place] dosing to AM which she had requested of Nursing. INTAKE/SON:contact prior to examination above; son was confirming her chronic depressive history and the occurrence of only a few venice episodes including recently when she from and went to sister's in [facility]. He also affirmed the marital history is a chronically adversarial one with a pattern of argumentatveness but no previous separations or divorce proceedings ASSESSMENT/PLAN: residual severe depressive sx; transient circumscribed psychosis evident today/ will increase Abilify to 10 mg qd, formulate more concrete Care Plan with Nursing to address hygiene needs and overall cooperativeness. 11/10/16 08:10 DAY 6/ Service Date 11/09/16 UPDATE:Progress Note dated 11/08 was referencing an exam on a wrong pt misidentified as the patient. I saw the correct pt late in the day on 11/08/16 at which time she [resented as residually depressed but not evidenceing psychosis; she engage cooperatively and was resistant to allowing a serum [place] to be drawn of have me make any medication changes. UPDATE: Team reports pt continues largely unchanged woth significant residual syndromal depression,a/w vegetativ e sign, anhedonia, neglect of hygiene; also her meds c ompliance remians mixed. ON EXAM: pt engages cooperatively, actually makes better eye contact today; expresses despair about gaining any improvement but is responsive to directive support. She c/o drowsiness with the increased dose of Abilify which I agree to DC; she agrees to giving a [place] level in the AM. She also agrees with my calling who had called to speak to speak to me. We did complete a brief speaker phone contact with and scheduled a second call tomorrow. Medication changes reviewed and pt agreeable to further discussion in AM; hygiene needs also addressed. ASSESSMENT/PLAN: residual depressive acuity/ will anticipate meds changes after followup discussion with pt in AM; care plan focus on improving personal hygiene d/w Nurs 11/10/16 DAY 7 UPDATE: vegetative syndromal depression persists per Team report with little change ON EXAM: Pt presents as calm, dysphoric, cooperative,conversant; reiterates description of syndromal depression including low self-esteem; denies SI; able to engage in discussion of medications, focus on improving self care; RN met with pt and myself to review care plan assistance; also again spoke by speaker phone with which went well in supporting pt; meds changes below reviewed with pt.; nonpsychotic ASSESSMENT/PLAN: residual depressive acuity/ begin Colace 100 mg bid, Seroquel 25 mg hs (has helped sleep previously), Geodon 40 mg bid (pt never used vs long list of AD's she's tried with little effect including Latuda); lithium level pending; will obtain baseline EKG to check QtC interval 11/11/16 12:45 DAY 8 UPDATE : Team reports pt slept 11 hrs which pt affirms; staff observes significant residual syndromal depression c/w vegetative presentation; anhedonic , < 50% po intake, slowed speech and ambulation, passive SI; [place] level 0.3 ON EXAM: presents c/w mental status referenced above per staff observations; some perking up in response to directive support; is resistant to taking Geodon but did agree in this session to start today; she also heard will visit on Monday at 12n and appeared pleased about this. ASSESSMENT/PLAN: residual significant depressive acuity; sleep improving/ Ill increase [place] ER to 300 mg bid and otherwise no meds changes; continue directive supportive care plan to reinforce hygiene, po intake and milieu visibility and groups; ECG to be done this pm 11/14/16 DAY ' UPDATE: Nursing reports pt remains with residual vegetative syndromal depression thru the weekend but is showing some incremental improvement; med were changed over weekend - increasing [place] to 900 mg hs and decreasing Geodon to 60 mg qd and stopping Seroquel; po intake remains about 50 % and sleep variable. Pt had positive visit with apollobnd and son Monday, continues to attend selective groups ON EXAM: Pt appears brighter and speech less slowed; describes effective visit with family as referenced; meds reviewed as changed back to regimen begun on as unclear why changed and pt concerned about the changes. denies side effects and regimen in early phase. Pt positive about speaker phone conference with in AM. He reports to me in telephone contact that she looked better to him and son during visit. ASSESSMENT/PLAN: slow-paced improvement noted descriptively/ continue CP as d/ w Nursing; meds changes as referenced Medications Generic Name Dose Route Start Last Admin Trade Name Archie PRN Reason Stop Dose Admin Quetiapine Fumarate 25 mg 11/14/16 21:00 Seroquel PO 05/13/17 20:59 HS CLYDE Ziprasidone 40 mg 11/14/16 18:00 Geodon PO 05/13/17 17:59 BIDMEAL CLYDE [place] Carbonate 300 mg 11/14/16 21:00 Lithobid PO 05/13/17 20:59 BID CLYDE 11/14/16 11:39 11/15/16 11:51 DAY ' UPDATE: Nursing reports pt continues to make paced progress with some improvement in po intake, more regular group attendance, lessening syndromal depressed appearance; pt c//w cares and meds ON EXAM: Pt presents as cooperative, calm, conversant; today speech more slowed and tone more negativistic; pt particularly c/o memory slippage with limited response to my supportive/clarification input; also c/o oversleeping this AM and sense of being transiently sedated this AM; we agree on halving the Seroquel dose; unfortunately I was late to bring pt in for the speaker phone meeting with and the telephone line remained busy for extended period - pt thought phone was off hook and had gone out as he has fixed routine about when he is home or out. She understands we will try later; she also understands that I will request Dietary consultation as she wishes to gain weight - reporting a 15 lb wgt loss over the duration of the current depression. ASSESSMENT/PLAN: residual depressive acuity- less improvement over last 24 hours / will decrease Seroquel to 12.5 mg, continue reintegrative CP, request Dietary consultation, try to reach later t 11/16/16 15:42 DAY ' UPDATE: Nursing reports pt slept less with decreased Seroquel dosing; appetite slightly better; residual depressive sx INTAKE; case reviewed yesterday PM with Dr. Chavira - she reports pt's depressive episodes typically clear slowly; recommends resuming trial of Lexapro which was worked and many AD's have failed previously; agrees with other meds altho states pt typically sedates by hx on multiple anti[psychotics. ON EXAM: residual dysphoria but slightly briter and more available GEOVANNA; + telephonic response to HOC in speaker phone contact; meds reviewed in detail with changes as referenced; more responsive today to clarification and support. ASSESSMENT/PLAN: slightly improved/ will continue reintegrative CP as d/w Nursing Medications Generic Name Dose Route Start Last Admin Trade Name Freq PRN Reason Stop Dose Admin [place] Carbonate 300 mg 11/14/16 21:00 11/16/16 09:57 Lithobid PO 05/13/17 20:59 300 mg BID CLYDE Escitalopram Oxalate 10 mg 11/16/16 09:30 11/16/16 09:57 Lexapro PO 05/15/17 09:29 10 mg DAILY CLYDE Ziprasidone 20 mg 11/16/16 10:30 11/16/16 10:44 Geodon PO 05/15/17 10:29 20 mg BIDMEAL CLYDE 11/17/16 08:36 DAY ' UPDATE: Pt presents with residual syndromal depressive acuity -vegetative sx remain prominent per Nursing report oN EXAM: Pt presents with depressive facies, dysphoric mood blunted with slowed speech; no change if not slitely more retarded; meds reviewed in detail, Dietary consultation reviewed and D/W Nursing with patient; pt responsive to clarification and support. ASSESSMENT/PLAN: unimproved over last 24hs/ meds changed as referenced; CP continued as d/w Nursing Medications Generic Name Dose Route Start Last Admin Trade Name Freq PRN Reason Stop Dose Admin Escitalopram Oxalate 20 mg 11/18/16 09:00 Lexapro PO 05/17/17 08:59 DAILY CLYDE [place] Carbonate 300 mg 11/14/16 21:00 11/17/16 08:26 Lithobid PO 05/13/17 20:59 300 mg BID CLYDE Modafinil 100 mg 11/17/16 13:30 Provigil PO 05/16/17 13:29 DAILY CLYDE Quetiapine Fumarate 25 mg 11/17/16 21:00 Seroquel PO 05/16/17 20:59 HS CLYDE 11/18/16 06:40 DAY UPDATE: Objective: Vital Signs Temp Pulse Resp BP Pulse Ox 37.1 C 67 14 175/77 H 91 L 11/18/16 00:30 11/18/16 00:30 11/18/16 00:30 11/18/16 00:30 11/18/16 00:30 ICD10 Worksheet Patient Problems: Problems Problem Status Onset Bipolar 1 disorder, manic, moderate Acute Cystocele, midline Acute
[2016-11-18 10:26] LABS: CREATININE 0.6 mg/dL (0.6-1.0); GLOMERULAR FILTRATION RATE > 60; LITHIUM 0.8 mEq/L (0.6-1.2)
[2016-11-18] MEDS: LITHIUM CARBONATE ER 300 MG TAB PO SCH ×2 (11:27→20:44)
[2016-11-18] MEDS: SENNOSIDES 1 TAB PO PRN (11:27)
[2016-11-18] MEDS: MODAFINIL 100 MG TAB PO SCH (11:27)
[2016-11-18] MEDS: CARVEDILOL 6.25 MG TAB PO SCH (11:28)
[2016-11-18] MEDS: ESCITALOPRAM OXALATE 10 MG TAB PO SCH (11:28)
[2016-11-18] MEDS: ASPIRIN EC 81 MG TAB PO SCH (11:28)
[2016-11-18] MEDS: DOCUSATE SODIUM 100 MG CAP PO SCH ×4 (11:39→20:44)
--- NOTE | 2016-11-18 11:40 | SOAPPROG ---
SOAP Progress Note Assessment/Plan: Assessment: Plan: 11/07/16 14:26 DAY 4 UPDATE: 71 y/o MWF admitted to [address] ED after referred to ED by her [facility] psychiatrist for c/o depressive acuity with SI. Pt has h/o chronic depressve sx of recurrent nature and also has had 2 known manic episodes - most recently shortly before this admission with a subseguent switch into acute syndromal depression. major stressors a/w marital instability and pt initiating a divorce process which her resisted 3 months ago. 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 since admission she's continued to c/o vegetative sx, has poor po intake, but is beginning to disclose more openly with staff. Currently complying with inpt meds as referenced; not observed to be psychotic or actively suicidal. 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 No evidence for psychosis ASSESSMENT/PLAN: residual depressive acuity but allied with rx plan/ will reassess meds, obtain Trainer level, Team to obtain history from [facility] and son 11/09/16 16:33 DAY 5/ Service Date 11/08/16 UPDATE: Pt has become more regressed over the past 24 hours - less verbal, increasing noncompliance with medications; neglectful of self-care continues and Nursing report her ongoing resistance to performing or allowing assistance with hygiene; she does continue to take in adequate po intake ON EXAM: Pt presents as irritable, dismissive; as I persist in the contact she expresses overt PI, states that her is in the room, complains that I am showing her my genitalia. she then stops talking but continues to glare at me. Nursing has not observed this overt thought disordered pattern. She does nod agreement with my moving her Trainer dosing to AM which she had requested of Nursing. INTAKE/SON:contact prior to examination above; son was confirming her chronic depressive history and the occurrence of only a few venice episodes including recently when she from and went to sister's in [facility]. He also affirmed the marital history is a chronically adversarial one with a pattern of argumentatveness but no previous separations or divorce proceedings ASSESSMENT/PLAN: residual severe depressive sx; transient circumscribed psychosis evident today/ will increase Abilify to 10 mg qd, formulate more concrete Care Plan with Nursing to address hygiene needs and overall cooperativeness. 11/10/16 08:10 DAY 6/ Service Date 11/09/16 UPDATE:Progress Note dated 11/08 was referencing an exam on a wrong pt misidentified as the patient. I saw the correct pt late in the day on 11/08/16 at which time she [resented as residually depressed but not evidenceing psychosis; she engage cooperatively and was resistant to allowing a serum Trainer to be drawn of have me make any medication changes. UPDATE: Team reports pt continues largely unchanged woth significant residual syndromal depression,a/w vegetativ e sign, anhedonia, neglect of hygiene; also her meds c ompliance remians mixed. ON EXAM: pt engages cooperatively, actually makes better eye contact today; expresses despair about gaining any improvement but is responsive to directive support. She c/o drowsiness with the increased dose of Abilify which I agree to DC; she agrees to giving a Trainer level in the AM. She also agrees with my calling who had called to speak to speak to me. We did complete a brief speaker phone contact with and scheduled a second call tomorrow. Medication changes reviewed and pt agreeable to further discussion in AM; hygiene needs also addressed. ASSESSMENT/PLAN: residual depressive acuity/ will anticipate meds changes after followup discussion with pt in AM; care plan focus on improving personal hygiene d/w Nurs 11/10/16 DAY 7 UPDATE: vegetative syndromal depression persists per Team report with little change ON EXAM: Pt presents as calm, dysphoric, cooperative,conversant; reiterates description of syndromal depression including low self-esteem; denies SI; able to engage in discussion of medications, focus on improving self care; RN met with pt and myself to review care plan assistance; also again spoke by speaker phone with which went well in supporting pt; meds changes below reviewed with pt.; nonpsychotic ASSESSMENT/PLAN: residual depressive acuity/ begin Colace 100 mg bid, Seroquel 25 mg hs (has helped sleep previously), Geodon 40 mg bid (pt never used vs long list of AD's she's tried with little effect including Latuda); lithium level pending; will obtain baseline EKG to check QtC interval 11/11/16 12:45 DAY 8 UPDATE : Team reports pt slept 11 hrs which pt affirms; staff observes significant residual syndromal depression c/w vegetative presentation; anhedonic , < 50% po intake, slowed speech and ambulation, passive SI; Trainer level 0.3 ON EXAM: presents c/w mental status referenced above per staff observations; some perking up in response to directive support; is resistant to taking Geodon but did agree in this session to start today; she also heard will visit on Monday at 12n and appeared pleased about this. ASSESSMENT/PLAN: residual significant depressive acuity; sleep improving/ Ill increase Trainer ER to 300 mg bid and otherwise no meds changes; continue directive supportive care plan to reinforce hygiene, po intake and milieu visibility and groups; ECG to be done this pm 11/14/16 DAY ' UPDATE: Nursing reports pt remains with residual vegetative syndromal depression thru the weekend but is showing some incremental improvement; med were changed over weekend - increasing Trainer to 900 mg hs and decreasing Geodon to 60 mg qd and stopping Seroquel; po intake remains about 50 % and sleep variable. Pt had positive visit with apollobnd and son Monday, continues to attend selective groups ON EXAM: Pt appears brighter and speech less slowed; describes effective visit with family as referenced; meds reviewed as changed back to regimen begun on as unclear why changed and pt concerned about the changes. denies side effects and regimen in early phase. Pt positive about speaker phone conference with in AM. He reports to me in telephone contact that she looked better to him and son during visit. ASSESSMENT/PLAN: slow-paced improvement noted descriptively/ continue CP as d/ w Nursing; meds changes as referenced Medications Generic Name Dose Route Start Last Admin Trade Name Archie PRN Reason Stop Dose Admin Quetiapine Fumarate 25 mg 11/14/16 21:00 Seroquel PO 05/13/17 20:59 HS CLYDE Ziprasidone 40 mg 11/14/16 18:00 Geodon PO 05/13/17 17:59 BIDMEAL CLYDE Trainer Carbonate 300 mg 11/14/16 21:00 Lithobid PO 05/13/17 20:59 BID CLYDE 11/14/16 11:39 11/15/16 11:51 DAY ' UPDATE: Nursing reports pt continues to make paced progress with some improvement in po intake, more regular group attendance, lessening syndromal depressed appearance; pt c//w cares and meds ON EXAM: Pt presents as cooperative, calm, conversant; today speech more slowed and tone more negativistic; pt particularly c/o memory slippage with limited response to my supportive/clarification input; also c/o oversleeping this AM and sense of being transiently sedated this AM; we agree on halving the Seroquel dose; unfortunately I was late to bring pt in for the speaker phone meeting with and the telephone line remained busy for extended period - pt thought phone was off hook and had gone out as he has fixed routine about when he is home or out. She understands we will try later; she also understands that I will request Dietary consultation as she wishes to gain weight - reporting a 15 lb wgt loss over the duration of the current depression. ASSESSMENT/PLAN: residual depressive acuity- less improvement over last 24 hours / will decrease Seroquel to 12.5 mg, continue reintegrative CP, request Dietary consultation, try to reach later t 11/16/16 15:42 DAY ' UPDATE: Nursing reports pt slept less with decreased Seroquel dosing; appetite slightly better; residual depressive sx INTAKE; case reviewed yesterday PM with Dr. Chavira - she reports pt's depressive episodes typically clear slowly; recommends resuming trial of Lexapro which was worked and many AD's have failed previously; agrees with other meds altho states pt typically sedates by hx on multiple anti[psychotics. ON EXAM: residual dysphoria but slightly briter and more available GEOVANNA; + telephonic response to HOC in speaker phone contact; meds reviewed in detail with changes as referenced; more responsive today to clarification and support. ASSESSMENT/PLAN: slightly improved/ will continue reintegrative CP as d/w Nursing Medications Generic Name Dose Route Start Last Admin Trade Name Freq PRN Reason Stop Dose Admin Trainer Carbonate 300 mg 11/14/16 21:00 11/16/16 09:57 Lithobid PO 05/13/17 20:59 300 mg BID CLYDE Escitalopram Oxalate 10 mg 11/16/16 09:30 11/16/16 09:57 Lexapro PO 05/15/17 09:29 10 mg DAILY CLYDE Ziprasidone 20 mg 11/16/16 10:30 11/16/16 10:44 Geodon PO 05/15/17 10:29 20 mg BIDMEAL CLYDE 11/17/16 08:36 DAY ' UPDATE: Pt presents with residual syndromal depressive acuity -vegetative sx remain prominent per Nursing report oN EXAM: Pt presents with depressive facies, dysphoric mood blunted with slowed speech; no change if not slitely more retarded; meds reviewed in detail, Dietary consultation reviewed and D/W Nursing with patient; pt responsive to clarification and support. ASSESSMENT/PLAN: unimproved over last 24hs/ meds changed as referenced; CP continued as d/w Nursing Medications Generic Name Dose Route Start Last Admin Trade Name Freq PRN Reason Stop Dose Admin Escitalopram Oxalate 20 mg 11/18/16 09:00 Lexapro PO 05/17/17 08:59 DAILY CLYDE Trainer Carbonate 300 mg 11/14/16 21:00 11/17/16 08:26 Lithobid PO 05/13/17 20:59 300 mg BID CLYDE Modafinil 100 mg 11/17/16 13:30 Provigil PO 05/16/17 13:29 DAILY CLYDE Quetiapine Fumarate 25 mg 11/17/16 21:00 Seroquel PO 05/16/17 20:59 HS CLYDE UPDATE: 11/18/16 11:31 UPDATE: Nursing reports slow-paced progress continues; po intake better, social presence in milieu increasing and pt keeping with group attendance; did not comply with Provigil dose this AM - c/o UE tremors not observed by Nursing when took first dose yesterday ON EXAM: presents as cooperative, conversant, calm; appears to have more spontaneous and less retarded speech today; negativistic but can be redirected; reviewed treatment plan operations, meds, and updated status in concrete detail ; pt agrees to take Provigil after session. Did engage again in supportive speaker phone contact with the pt and myself. He will visit with pt' s sister this LABS: TSH 2.3 on admission and today reported as 5.46; serum Trainer level changed from 0.3 to 0.8 with dosing increase ASSESSMENT/PLAN: slow-paced progress over last 24 hrs/ no change in current meds ; continue to engage in reintegrative CP as d/w Nursing; will contact Loyd Matson about lab values Objective: Vital Signs Temp Pulse Resp BP Pulse Ox 37.1 C 66 14 177/85 H 91 L 11/18/16 00:30 11/18/16 11:28 11/18/16 00:30 11/18/16 11:28 11/18/16 00:30 Laboratory Results 11/18/16 06:00 ICD10 Worksheet Patient Problems: Problems Problem Status Onset Bipolar 1 disorder, manic, moderate Acute Cystocele, midline Acute
[2016-11-18] MEDS ORDERED: BISACODYL 10 MG SUPP PR ONE (18:00)
[2016-11-18] MEDS: QUEtiapine FUMARATE 25 MG TAB PO SCH (20:44)
[2016-11-19] MEDS: CARVEDILOL 6.25 MG TAB PO SCH (09:02)
[2016-11-19] MEDS: MODAFINIL 100 MG TAB PO SCH (09:02)
[2016-11-19] MEDS: LITHIUM CARBONATE ER 300 MG TAB PO SCH ×2 (09:02→17:48)
[2016-11-19] MEDS: ESCITALOPRAM OXALATE 10 MG TAB PO SCH (09:02)
[2016-11-19] MEDS: ASPIRIN EC 81 MG TAB PO SCH (09:02)
[2016-11-19] MEDS: POLYETHYLENE GLYCOL 3350 17 GM PKT PO SCH (09:06)
[2016-11-19] MEDS: DOCUSATE SODIUM 100 MG CAP PO SCH ×3 (09:06→21:05)
--- NOTE | 2016-11-19 15:25 | SOAPPROG ---
SOAP Progress Note Assessment/Plan: Assessment:Female with bipolar disorder with some psychosis noted at admission. [place] level = 0.3 (11/10). She reports she slept well last night. She reports experiencing tremors from the new medication; however, she is on lithium and the level after 3 days was 0.8. She reports continued depression. She has an experience of zoe, but she depressed not zoe at this time. Her TSH is elevated possibly secondary to lithium. No current safety issues. Plan: Continue current medications and treatment. Will check lithium and creatinine levels along with T4 tomorrow. 11/12/16 16:19 11/12/16 16:29 11/12/16 16:29 11/13/16 13:15 11/13/16 13:28 11/19/16 15:19 11/19/16 15:25 Subjective: She reports she sleep well last night. She feels she is still depressed. Depression - 6-8/10 (10 the worst). She reports the new medicine causes her to be shaky. Objective: Vital Signs Temp Pulse Resp BP Pulse Ox 36.9 C 76 14 157/74 H 94 11/19/16 09:03 11/19/16 09:03 11/19/16 00:30 11/19/16 09:03 11/19/16 09:03 Laboratory Results 11/18/16 06:00 Thin, female appropriately dressed and groomed. Slow gait. Good eye contact. Speech- quiet, depresed tone of voice. Mood-"It's till down." Affect- blunted. Thought Process- Goal directed. Thought Content- No SI/HI. No AH/VH. - Time Spent With Patient Time Spent With Patient: 25 - Pending Discharge Pending Discharge Within 24 Hours: No Pending Discharge Within 48 Hours: No ICD10 Worksheet Patient Problems: Problems Problem Status Onset Bipolar 1 disorder, manic, moderate Acute Cystocele, midline Acute
[2016-11-19] MEDS: QUEtiapine FUMARATE 25 MG TAB PO SCH (21:05)
[2016-11-20 10:47] LABS: CREATININE 0.7 mg/dL (0.6-1.0); GLOMERULAR FILTRATION RATE > 60; LITHIUM 0.7 mEq/L (0.6-1.2)
[2016-11-20] MEDS: ESCITALOPRAM OXALATE 10 MG TAB PO SCH (10:54)
[2016-11-20] MEDS: POLYETHYLENE GLYCOL 3350 17 GM PKT PO SCH ×2 (10:55→16:08)
[2016-11-20] MEDS: LITHIUM CARBONATE ER 300 MG TAB PO SCH ×2 (10:55→21:17)
[2016-11-20] MEDS: ASPIRIN EC 81 MG TAB PO SCH (10:55)
[2016-11-20] MEDS: MODAFINIL 100 MG TAB PO SCH (10:55)
[2016-11-20] MEDS: CARVEDILOL 6.25 MG TAB PO SCH (11:00)
--- NOTE | 2016-11-20 12:15 | SOAPPROG ---
SOAP Progress Note Assessment/Plan: Assessment:Female with bipolar disorder with some psychosis noted at admission. [employer] level = 0.7 (11/20). She reports she slept well last night. She reports experiencing tremors and stuttering on the Provigil. She reports continued depression. Her T4 is normal. No current safety issues. Plan: Continue current medications and treatment. Continue to monitor her lithium level, creatinine, and TSH quarterly. 11/12/16 16:19 11/12/16 16:29 11/12/16 16:29 11/13/16 13:15 11/13/16 13:28 11/19/16 15:19 11/19/16 15:25 11/20/16 12:11 11/20/16 12:18 Subjective: She reports she stuttered as a child, and she noticed it return on the new medication. She also reported continued finer tremors. Depression 6-03/30. Objective: Vital Signs Temp Pulse Resp BP Pulse Ox 36.3 C 67 14 157/88 H 97 11/20/16 10:50 11/20/16 11:00 11/20/16 10:50 11/20/16 11:00 11/20/16 10:50 Laboratory Results 11/20/16 06:40 Thin female with slow, shuffling gait. Good eye contact. Bilateral tremor of fingers. Speech- depressed tone. Mood- "It's down." Affect- blunted. Thought Process- linear. Thought Content - No SI/HI. NO AH/VH. - Time Spent With Patient Time Spent With Patient: 25 - Pending Discharge Pending Discharge Within 24 Hours: No Pending Discharge Within 48 Hours: No ICD10 Worksheet Patient Problems: Problems Problem Status Onset Bipolar 1 disorder, manic, moderate Acute Cystocele, midline Acute
[2016-11-20] MEDS: DOCUSATE SODIUM 100 MG CAP PO SCH (21:17)
[2016-11-20] MEDS: QUEtiapine FUMARATE 25 MG TAB PO SCH (21:17)
[2016-11-21] MEDS: ASPIRIN EC 81 MG TAB PO SCH (10:57)
[2016-11-21] MEDS: ESCITALOPRAM OXALATE 10 MG TAB PO SCH (10:57)
[2016-11-21] MEDS: POLYETHYLENE GLYCOL 3350 17 GM PKT PO SCH (10:57)
[2016-11-21] MEDS: LITHIUM CARBONATE ER 300 MG TAB PO SCH ×2 (10:58→21:10)
[2016-11-21] MEDS: CARVEDILOL 6.25 MG TAB PO SCH (10:58)
[2016-11-21] MEDS: MODAFINIL 100 MG TAB PO SCH (10:58)
--- NOTE | 2016-11-21 12:21 | SOAPPROG ---
SOAP Progress Note Assessment/Plan: Assessment: Plan: 11/07/16 14:26 DAY 4 UPDATE: 71 y/o MWF admitted to [address] ED after referred to ED by her [facility] psychiatrist for c/o depressive acuity with SI. Pt has h/o chronic depressve sx of recurrent nature and also has had 2 known manic episodes - most recently shortly before this admission with a subseguent switch into acute syndromal depression. major stressors a/w marital instability and pt initiating a divorce process which her resisted 3 months ago. 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 Her compliance with meds is uncertain POWER MANAGER and she'd not kept up with her outpt therapist. since admission she's continued to c/o vegetative sx, has poor po intake, but is beginning to disclose more openly with staff. Currently complying with inpt meds as referenced; not observed to be psychotic or actively suicidal. 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 No evidence for psychosis ASSESSMENT/PLAN: residual depressive acuity but allied with rx plan/ will reassess meds, obtain [place] level, Team to obtain history from [facility] and son 11/09/16 16:33 DAY 5/ Service Date 11/08/16 UPDATE: Pt has become more regressed over the past 24 hours - less verbal, increasing noncompliance with medications; neglectful of self-care continues and Nursing report her ongoing resistance to performing or allowing assistance with hygiene; she does continue to take in adequate po intake ON EXAM: Pt presents as irritable, dismissive; as I persist in the contact she expresses overt PI, states that her is in the room, complains that I am showing her my genitalia. she then stops talking but continues to glare at me. Nursing has not observed this overt thought disordered pattern. She does nod agreement with my moving her [place] dosing to AM which she had requested of Nursing. INTAKE/SON:contact prior to examination above; son was confirming her chronic depressive history and the occurrence of only a few venice episodes including recently when she from and went to sister's in [facility]. He also affirmed the marital history is a chronically adversarial one with a pattern of argumentatveness but no previous separations or divorce proceedings ASSESSMENT/PLAN: residual severe depressive sx; transient circumscribed psychosis evident today/ will increase Abilify to 10 mg qd, formulate more concrete Care Plan with Nursing to address hygiene needs and overall cooperativeness. 11/10/16 08:10 DAY 6/ Service Date 11/09/16 UPDATE:Progress Note dated 11/08 was referencing an exam on a wrong pt misidentified as the patient. I saw the correct pt late in the day on 11/08/16 at which time she [resented as residually depressed but not evidenceing psychosis; she engage cooperatively and was resistant to allowing a serum [place] to be drawn of have me make any medication changes. UPDATE: Team reports pt continues largely unchanged woth significant residual syndromal depression,a/w vegetativ e sign, anhedonia, neglect of hygiene; also her meds c ompliance remians mixed. ON EXAM: pt engages cooperatively, actually makes better eye contact today; expresses despair about gaining any improvement but is responsive to directive support. She c/o drowsiness with the increased dose of Abilify which I agree to DC; she agrees to giving a [place] level in the AM. She also agrees with my calling who had called to speak to speak to me. We did complete a brief speaker phone contact with and scheduled a second call tomorrow. Medication changes reviewed and pt agreeable to further discussion in AM; hygiene needs also addressed. ASSESSMENT/PLAN: residual depressive acuity/ will anticipate meds changes after followup discussion with pt in AM; care plan focus on improving personal hygiene d/w Nurs 11/10/16 DAY 7 UPDATE: vegetative syndromal depression persists per Team report with little change ON EXAM: Pt presents as calm, dysphoric, cooperative,conversant; reiterates description of syndromal depression including low self-esteem; denies SI; able to engage in discussion of medications, focus on improving self care; RN met with pt and myself to review care plan assistance; also again spoke by speaker phone with which went well in supporting pt; meds changes below reviewed with pt.; nonpsychotic ASSESSMENT/PLAN: residual depressive acuity/ begin Colace 100 mg bid, Seroquel 25 mg hs (has helped sleep previously), Geodon 40 mg bid (pt never used vs long list of AD's she's tried with little effect including Latuda); lithium level pending; will obtain baseline EKG to check QtC interval 11/11/16 12:45 DAY 8 UPDATE : Team reports pt slept 11 hrs which pt affirms; staff observes significant residual syndromal depression c/w vegetative presentation; anhedonic , < 50% po intake, slowed speech and ambulation, passive SI; [place] level 0.3 ON EXAM: presents c/w mental status referenced above per staff observations; some perking up in response to directive support; is resistant to taking Geodon but did agree in this session to start today; she also heard will visit on Monday at 12n and appeared pleased about this. ASSESSMENT/PLAN: residual significant depressive acuity; sleep improving/ Ill increase [place] ER to 300 mg bid and otherwise no meds changes; continue directive supportive care plan to reinforce hygiene, po intake and milieu visibility and groups; ECG to be done this pm 11/14/16 DAY ' UPDATE: Nursing reports pt remains with residual vegetative syndromal depression thru the weekend but is showing some incremental improvement; med were changed over weekend - increasing [place] to 900 mg hs and decreasing Geodon to 60 mg qd and stopping Seroquel; po intake remains about 50 % and sleep variable. Pt had positive visit with apollobnd and son Monday, continues to attend selective groups ON EXAM: Pt appears brighter and speech less slowed; describes effective visit with family as referenced; meds reviewed as changed back to regimen begun on as unclear why changed and pt concerned about the changes. denies side effects and regimen in early phase. Pt positive about speaker phone conference with in AM. He reports to me in telephone contact that she looked better to him and son during visit. ASSESSMENT/PLAN: slow-paced improvement noted descriptively/ continue CP as d/ w Nursing; meds changes as referenced Medications Generic Name Dose Route Start Last Admin Trade Name Archie PRN Reason Stop Dose Admin Quetiapine Fumarate 25 mg 11/14/16 21:00 Seroquel PO 05/13/17 20:59 HS CLYDE Ziprasidone 40 mg 11/14/16 18:00 Geodon PO 05/13/17 17:59 BIDMEAL CLYDE [place] Carbonate 300 mg 11/14/16 21:00 Lithobid PO 05/13/17 20:59 BID CLYDE 11/14/16 11:39 11/15/16 11:51 DAY ' UPDATE: Nursing reports pt continues to make paced progress with some improvement in po intake, more regular group attendance, lessening syndromal depressed appearance; pt c//w cares and meds ON EXAM: Pt presents as cooperative, calm, conversant; today speech more slowed and tone more negativistic; pt particularly c/o memory slippage with limited response to my supportive/clarification input; also c/o oversleeping this AM and sense of being transiently sedated this AM; we agree on halving the Seroquel dose; unfortunately I was late to bring pt in for the speaker phone meeting with and the telephone line remained busy for extended period - pt thought phone was off hook and had gone out as he has fixed routine about when he is home or out. She understands we will try later; she also understands that I will request Dietary consultation as she wishes to gain weight - reporting a 15 lb wgt loss over the duration of the current depression. ASSESSMENT/PLAN: residual depressive acuity- less improvement over last 24 hours / will decrease Seroquel to 12.5 mg, continue reintegrative CP, request Dietary consultation, try to reach later t 11/16/16 15:42 DAY ' UPDATE: Nursing reports pt slept less with decreased Seroquel dosing; appetite slightly better; residual depressive sx INTAKE; case reviewed yesterday PM with Dr. Chavira - she reports pt's depressive episodes typically clear slowly; recommends resuming trial of Lexapro which was worked and many AD's have failed previously; agrees with other meds altho states pt typically sedates by hx on multiple anti[psychotics. ON EXAM: residual dysphoria but slightly briter and more available GEOVANNA; + telephonic response to HOC in speaker phone contact; meds reviewed in detail with changes as referenced; more responsive today to clarification and support. ASSESSMENT/PLAN: slightly improved/ will continue reintegrative CP as d/w Nursing Medications Generic Name Dose Route Start Last Admin Trade Name Freq PRN Reason Stop Dose Admin [place] Carbonate 300 mg 11/14/16 21:00 11/16/16 09:57 Lithobid PO 05/13/17 20:59 300 mg BID CLYDE Escitalopram Oxalate 10 mg 11/16/16 09:30 11/16/16 09:57 Lexapro PO 05/15/17 09:29 10 mg DAILY CLYDE Ziprasidone 20 mg 11/16/16 10:30 11/16/16 10:44 Geodon PO 05/15/17 10:29 20 mg BIDMEAL CLYDE 11/17/16 08:36 DAY ' UPDATE: Pt presents with residual syndromal depressive acuity -vegetative sx remain prominent per Nursing report oN EXAM: Pt presents with depressive facies, dysphoric mood blunted with slowed speech; no change if not slitely more retarded; meds reviewed in detail, Dietary consultation reviewed and D/W Nursing with patient; pt responsive to clarification and support. ASSESSMENT/PLAN: unimproved over last 24hs/ meds changed as referenced; CP continued as d/w Nursing Medications Generic Name Dose Route Start Last Admin Trade Name Freq PRN Reason Stop Dose Admin Escitalopram Oxalate 20 mg 11/18/16 09:00 Lexapro PO 05/17/17 08:59 DAILY CLYDE [place] Carbonate 300 mg 11/14/16 21:00 11/17/16 08:26 Lithobid PO 05/13/17 20:59 300 mg BID CLYDE Modafinil 100 mg 11/17/16 13:30 Provigil PO 05/16/17 13:29 DAILY CLYDE Quetiapine Fumarate 25 mg 11/17/16 21:00 Seroquel PO 05/16/17 20:59 HS CLYDE UPDATE: 11/18/16 11:31 UPDATE: Nursing reports slow-paced progress continues; po intake better, social presence in milieu increasing and pt keeping with group attendance; did not comply with Provigil dose this AM - c/o UE tremors not observed by Nursing when took first dose yesterday ON EXAM: presents as cooperative, conversant, calm; appears to have more spontaneous and less retarded speech today; negativistic but can be redirected; reviewed treatment plan operations, meds, and updated status in concrete detail ; pt agrees to take Provigil after session. Did engage again in supportive speaker phone contact with the pt and myself. He will visit with pt' s sister this LABS: TSH 2.3 on admission and today reported as 5.46; serum [place] level changed from 0.3 to 0.8 with dosing increase ASSESSMENT/PLAN: slow-paced progress over last 24 hrs/ no change in current meds ; continue to engage in reintegrative CP as d/w Nursing; will contact Dano about lab values 11/21/16 12:11 DAY ' UPDATE: Nursing reports pt made incremental progress over weekend; did comply with meds and cares, more withdrawn, po compromised at 505 - 75%; brightened up with visits from a friend and family; Nursing did observie fine finger tremors which may be related to the Provigil 100 mg qd which pt did comply with along with the Lexapro 20 mg qam. ON EXAM: presents as c tania, cooperative; speech slowed and sof, mood dysphoric ; some range of affect with smile when reporting multiple visits from good friend; usual bowel complaints byt states not needed laxative for 3 days. Remains interested in DC but recognizes further descriptive progress needs too warrant DC. ASSESSMENT/PLAN: residual syndromal depression - progress remains slow-paced/ will eassess med and confer with Dr Chavira today - ? increase Provigil or try low-dose Ritalin or Adderall; continue reintegrative CP d/w Nursing Objective: Vital Signs Temp Pulse Resp BP Pulse Ox 36.7 C 69 15 149/73 H 95 11/21/16 11:17 11/21/16 11:17 11/21/16 06:06 11/21/16 11:17 11/21/16 06:06 Laboratory Results 11/20/16 06:40 ICD10 Worksheet Patient Problems: Problems Problem Status Onset Bipolar 1 disorder, manic, moderate Acute Cystocele, midline Acute
--- NOTE | 2016-11-21 12:24 | SOAPPROG ---
SOAP Progress Note Assessment/Plan: Assessment: Plan: 11/07/16 14:26 DAY 4 UPDATE: 71 y/o MWF admitted to [address] after referred to ED by her [facility] psychiatrist for c/o depressive acuity with SI. Pt has h/o chronic depressve sx of recurrent nature and also has had 2 known manic episodes - most recently shortly before this admission with a subseguent switch into acute syndromal depression. major stressors a/w marital instability and pt initiating a divorce process which her resisted 3 months ago. 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 She'd been taking [id number] mg qd and [place] 150 mg bid [employer]. Her compliance with meds is uncertain [employer] and she'd not kept up with her outpt therapist. since admission she's continued to c/o vegetative sx, has poor po intake, but is beginning to disclose more openly with staff. Currently complying with inpt meds as referenced; not observed to be psychotic or actively suicidal. 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 No evidence for psychosis ASSESSMENT/PLAN: residual depressive acuity but allied with rx plan/ will reassess meds, obtain [place] level, Team to obtain history from [facility] and son 11/09/16 16:33 DAY 5/ Service Date 11/08/16 UPDATE: Pt has become more regressed over the past 24 hours - less verbal, increasing noncompliance with medications; neglectful of self-care continues and Nursing report her ongoing resistance to performing or allowing assistance with hygiene; she does continue to take in adequate po intake ON EXAM: Pt presents as irritable, dismissive; as I persist in the contact she expresses overt PI, states that her is in the room, complains that I am showing her my genitalia. she then stops talking but continues to glare at me. Nursing has not observed this overt thought disordered pattern. She does nod agreement with my moving her [place] dosing to AM which she had requested of Nursing. INTAKE/SON:contact prior to examination above; son was confirming her chronic depressive history and the occurrence of only a few venice episodes including recently when she from and went to sister's in [facility]. He also affirmed the marital history is a chronically adversarial one with a pattern of argumentatveness but no previous separations or divorce proceedings ASSESSMENT/PLAN: residual severe depressive sx; transient circumscribed psychosis evident today/ will increase Abilify to 10 mg qd, formulate more concrete Care Plan with Nursing to address hygiene needs and overall cooperativeness. 11/10/16 08:10 DAY 6/ Service Date 11/09/16 UPDATE:Progress Note dated 11/08 was referencing an exam on a wrong pt misidentified as the patient. I saw the correct pt late in the day on 11/08/16 at which time she [resented as residually depressed but not evidenceing psychosis; she engage cooperatively and was resistant to allowing a serum [place] to be drawn of have me make any medication changes. UPDATE: Team reports pt continues largely unchanged woth significant residual syndromal depression,a/w vegetativ e sign, anhedonia, neglect of hygiene; also her meds c ompliance remians mixed. ON EXAM: pt engages cooperatively, actually makes better eye contact today; expresses despair about gaining any improvement but is responsive to directive support. She c/o drowsiness with the increased dose of Abilify which I agree to DC; she agrees to giving a [place] level in the AM. She also agrees with my calling who had called to speak to speak to me. We did complete a brief speaker phone contact with and scheduled a second call tomorrow. Medication changes reviewed and pt agreeable to further discussion in AM; hygiene needs also addressed. ASSESSMENT/PLAN: residual depressive acuity/ will anticipate meds changes after followup discussion with pt in AM; care plan focus on improving personal hygiene d/w Nurs 11/10/16 DAY 7 UPDATE: vegetative syndromal depression persists per Team report with little change ON EXAM: Pt presents as calm, dysphoric, cooperative,conversant; reiterates description of syndromal depression including low self-esteem; denies SI; able to engage in discussion of medications, focus on improving self care; RN met with pt and myself to review care plan assistance; also again spoke by speaker phone with which went well in supporting pt; meds changes below reviewed with pt.; nonpsychotic ASSESSMENT/PLAN: residual depressive acuity/ begin Colace 100 mg bid, Seroquel 25 mg hs (has helped sleep previously), Geodon 40 mg bid (pt never used vs long list of AD's she's tried with little effect including Latuda); lithium level pending; will obtain baseline EKG to check QtC interval 11/11/16 12:45 DAY 8 UPDATE : Team reports pt slept 11 hrs which pt affirms; staff observes significant residual syndromal depression c/w vegetative presentation; anhedonic , < 50% po intake, slowed speech and ambulation, passive SI; [place] level 0.3 ON EXAM: presents c/w mental status referenced above per staff observations; some perking up in response to directive support; is resistant to taking Geodon but did agree in this session to start today; she also heard will visit on Monday at 12n and appeared pleased about this. ASSESSMENT/PLAN: residual significant depressive acuity; sleep improving/ Ill increase [place] ER to 300 mg bid and otherwise no meds changes; continue directive supportive care plan to reinforce hygiene, po intake and milieu visibility and groups; ECG to be done this pm 11/14/16 DAY ' UPDATE: Nursing reports pt remains with residual vegetative syndromal depression thru the weekend but is showing some incremental improvement; med were changed over weekend - increasing [place] to 900 mg hs and decreasing Geodon to 60 mg qd and stopping Seroquel; po intake remains about 50 % and sleep variable. Pt had positive visit with apollobnd and son Monday, continues to attend selective groups ON EXAM: Pt appears brighter and speech less slowed; describes effective visit with family as referenced; meds reviewed as changed back to regimen begun on as unclear why changed and pt concerned about the changes. denies side effects and regimen in early phase. Pt positive about speaker phone conference with in AM. He reports to me in telephone contact that she looked better to him and son during visit. ASSESSMENT/PLAN: slow-paced improvement noted descriptively/ continue CP as d/ w Nursing; meds changes as referenced Medications Generic Name Dose Route Start Last Admin Trade Name Archie PRN Reason Stop Dose Admin Quetiapine Fumarate 25 mg 11/14/16 21:00 Seroquel PO 05/13/17 20:59 HS CLYDE Ziprasidone 40 mg 11/14/16 18:00 Geodon PO 05/13/17 17:59 BIDMEAL CLYDE [place] Carbonate 300 mg 11/14/16 21:00 Lithobid PO 05/13/17 20:59 BID CLYDE 11/14/16 11:39 11/15/16 11:51 DAY ' UPDATE: Nursing reports pt continues to make paced progress with some improvement in po intake, more regular group attendance, lessening syndromal depressed appearance; pt c//w cares and meds ON EXAM: Pt presents as cooperative, calm, conversant; today speech more slowed and tone more negativistic; pt particularly c/o memory slippage with limited response to my supportive/clarification input; also c/o oversleeping this AM and sense of being transiently sedated this AM; we agree on halving the Seroquel dose; unfortunately I was late to bring pt in for the speaker phone meeting with and the telephone line remained busy for extended period - pt thought phone was off hook and had gone out as he has fixed routine about when he is home or out. She understands we will try later; she also understands that I will request Dietary consultation as she wishes to gain weight - reporting a 15 lb wgt loss over the duration of the current depression. ASSESSMENT/PLAN: residual depressive acuity- less improvement over last 24 hours / will decrease Seroquel to 12.5 mg, continue reintegrative CP, request Dietary consultation, try to reach later t 11/16/16 15:42 DAY ' UPDATE: Nursing reports pt slept less with decreased Seroquel dosing; appetite slightly better; residual depressive sx INTAKE; case reviewed yesterday PM with Dr. Chavira - she reports pt's depressive episodes typically clear slowly; recommends resuming trial of Lexapro which was worked and many AD's have failed previously; agrees with other meds altho states pt typically sedates by hx on multiple anti[psychotics. ON EXAM: residual dysphoria but slightly briter and more available GEOVANNA; + telephonic response to HOC in speaker phone contact; meds reviewed in detail with changes as referenced; more responsive today to clarification and support. ASSESSMENT/PLAN: slightly improved/ will continue reintegrative CP as d/w Nursing Medications Generic Name Dose Route Start Last Admin Trade Name Freq PRN Reason Stop Dose Admin [place] Carbonate 300 mg 11/14/16 21:00 11/16/16 09:57 Lithobid PO 05/13/17 20:59 300 mg BID CLYDE Escitalopram Oxalate 10 mg 11/16/16 09:30 11/16/16 09:57 Lexapro PO 05/15/17 09:29 10 mg DAILY CLYDE Ziprasidone 20 mg 11/16/16 10:30 11/16/16 10:44 Geodon PO 05/15/17 10:29 20 mg BIDMEAL CLYDE 11/17/16 08:36 DAY ' UPDATE: Pt presents with residual syndromal depressive acuity -vegetative sx remain prominent per Nursing report oN EXAM: Pt presents with depressive facies, dysphoric mood blunted with slowed speech; no change if not slitely more retarded; meds reviewed in detail, Dietary consultation reviewed and D/W Nursing with patient; pt responsive to clarification and support. ASSESSMENT/PLAN: unimproved over last 24hs/ meds changed as referenced; CP continued as d/w Nursing Medications Generic Name Dose Route Start Last Admin Trade Name Freq PRN Reason Stop Dose Admin Escitalopram Oxalate 20 mg 11/18/16 09:00 Lexapro PO 05/17/17 08:59 DAILY CLYDE [place] Carbonate 300 mg 11/14/16 21:00 11/17/16 08:26 Lithobid PO 05/13/17 20:59 300 mg BID CLYDE Modafinil 100 mg 11/17/16 13:30 Provigil PO 05/16/17 13:29 DAILY CLYDE Quetiapine Fumarate 25 mg 11/17/16 21:00 Seroquel PO 05/16/17 20:59 HS CLYDE UPDATE: 11/18/16 11:31 UPDATE: Nursing reports slow-paced progress continues; po intake better, social presence in milieu increasing and pt keeping with group attendance; did not comply with Provigil dose this AM - c/o UE tremors not observed by Nursing when took first dose yesterday ON EXAM: presents as cooperative, conversant, calm; appears to have more spontaneous and less retarded speech today; negativistic but can be redirected; reviewed treatment plan operations, meds, and updated status in concrete detail ; pt agrees to take Provigil after session. Did engage again in supportive speaker phone contact with the pt and myself. He will visit with pt' s sister this LABS: TSH 2.3 on admission and today reported as 5.46; serum [place] level changed from 0.3 to 0.8 with dosing increase ASSESSMENT/PLAN: slow-paced progress over last 24 hrs/ no change in current meds ; continue to engage in reintegrative CP as d/w Nursing; will contact Dano about lab values 11/21/16 12:11 DAY ' UPDATE: Nursing reports pt made incremental progress over weekend; did comply with meds and cares, more withdrawn, po compromised at 505 - 75%; brightened up with visits from a friend and family; Nursing did observie fine finger tremors which may be related to the Provigil 100 mg qd which pt did comply with along with the Lexapro 20 mg qam. ON EXAM: presents as c tania, cooperative; speech slowed and sof, mood dysphoric ; some range of affect with smile when reporting multiple visits from good friend; usual bowel complaints byt states not needed laxative for 3 days. Remains interested in DC but recognizes further descriptive progress needs too warrant DC. ASSESSMENT/PLAN: residual syndromal depression - progress remains slow-paced/ will reassess med and confer with Dr Chavira today - ? increase Provigil or try low-dose Ritalin or Adderall; continue reintegrative CP d/w Nursing; discussed increase in TSH with Dr. Matson 11/18 - agreed to need to treat, observe only Objective: Vital Signs Temp Pulse Resp BP Pulse Ox 36.7 C 69 15 149/73 H 95 11/21/16 11:17 11/21/16 11:17 11/21/16 06:06 11/21/16 11:17 11/21/16 06:06 Laboratory Results 11/20/16 06:40 ICD10 Worksheet Patient Problems: Problems Problem Status Onset Bipolar 1 disorder, manic, moderate Acute Cystocele, midline Acute
[2016-11-21] MEDS: DOCUSATE SODIUM 100 MG CAP PO SCH (21:09)
[2016-11-21] MEDS: QUEtiapine FUMARATE 25 MG TAB PO SCH (21:10)
--- NOTE | 2016-11-22 08:31 | SOAPPROG ---
SOAP Progress Note Assessment/Plan: Assessment: Plan: 11/07/16 14:26 DAY 4 UPDATE: 71 y/o MWF admitted to [address] after referred to ED by her [facility] psychiatrist for c/o depressive acuity with SI. Pt has h/o chronic depressve sx of recurrent nature and also has had 2 known manic episodes - most recently shortly before this admission with a subseguent switch into acute syndromal depression. major stressors a/w marital instability and pt initiating a divorce process which her resisted 3 months ago. She clamp remover to [place] to be with sister in an alleged manic state, switched into depression and returned home and then worsened which led to this admission after visit with her psychiatrist. 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 since admission she's continued to c/o vegetative sx, has poor po intake, but is beginning to disclose more openly with staff. Currently complying with inpt meds as referenced; not observed to be psychotic or actively suicidal. 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 No evidence for psychosis ASSESSMENT/PLAN: residual depressive acuity but allied with rx plan/ will reassess meds, obtain Dobbins level, Team to obtain history from [facility] and son 11/09/16 16:33 DAY 5/ Service Date 11/08/16 UPDATE: Pt has become more regressed over the past 24 hours - less verbal, increasing noncompliance with medications; neglectful of self-care continues and Nursing report her ongoing resistance to performing or allowing assistance with hygiene; she does continue to take in adequate po intake ON EXAM: Pt presents as irritable, dismissive; as I persist in the contact she expresses overt PI, states that her is in the room, complains that I am showing her my genitalia. she then stops talking but continues to glare at me. Nursing has not observed this overt thought disordered pattern. She does nod agreement with my moving her Dobbins dosing to AM which she had requested of Nursing. INTAKE/SON:contact prior to examination above; son was confirming her chronic depressive history and the occurrence of only a few venice episodes including recently when she from and went to sister's in [facility]. He also affirmed the marital history is a chronically adversarial one with a pattern of argumentatveness but no previous separations or divorce proceedings ASSESSMENT/PLAN: residual severe depressive sx; transient circumscribed psychosis evident today/ will increase Abilify to 10 mg qd, formulate more concrete Care Plan with Nursing to address hygiene needs and overall cooperativeness. 11/10/16 08:10 DAY 6/ Service Date 11/09/16 UPDATE:Progress Note dated 11/08 was referencing an exam on a wrong pt misidentified as the patient. I saw the correct pt late in the day on 11/08/16 at which time she [resented as residually depressed but not evidenceing psychosis; she engage cooperatively and was resistant to allowing a serum Dobbins to be drawn of have me make any medication changes. UPDATE: Team reports pt continues largely unchanged woth significant residual syndromal depression,a/w vegetativ e sign, anhedonia, neglect of hygiene; also her meds c ompliance remians mixed. ON EXAM: pt engages cooperatively, actually makes better eye contact today; expresses despair about gaining any improvement but is responsive to directive support. She c/o drowsiness with the increased dose of Abilify which I agree to DC; she agrees to giving a Dobbins level in the AM. She also agrees with my calling who had called to speak to speak to me. We did complete a brief speaker phone contact with and scheduled a second call tomorrow. Medication changes reviewed and pt agreeable to further discussion in AM; hygiene needs also addressed. ASSESSMENT/PLAN: residual depressive acuity/ will anticipate meds changes after followup discussion with pt in AM; care plan focus on improving personal hygiene d/w Nurs 11/10/16 DAY 7 UPDATE: vegetative syndromal depression persists per Team report with little change ON EXAM: Pt presents as calm, dysphoric, cooperative,conversant; reiterates description of syndromal depression including low self-esteem; denies SI; able to engage in discussion of medications, focus on improving self care; RN met with pt and myself to review care plan assistance; also again spoke by speaker phone with which went well in supporting pt; meds changes below reviewed with pt.; nonpsychotic ASSESSMENT/PLAN: residual depressive acuity/ begin Colace 100 mg bid, Seroquel 25 mg hs (has helped sleep previously), Geodon 40 mg bid (pt never used vs long list of AD's she's tried with little effect including Latuda); lithium level pending; will obtain baseline EKG to check QtC interval 11/11/16 12:45 DAY 8 UPDATE : Team reports pt slept 11 hrs which pt affirms; staff observes significant residual syndromal depression c/w vegetative presentation; anhedonic , < 50% po intake, slowed speech and ambulation, passive SI; Dobbins level 0.3 ON EXAM: presents c/w mental status referenced above per staff observations; some perking up in response to directive support; is resistant to taking Geodon but did agree in this session to start today; she also heard will visit on Monday at 12n and appeared pleased about this. ASSESSMENT/PLAN: residual significant depressive acuity; sleep improving/ Ill increase Dobbins ER to 300 mg bid and otherwise no meds changes; continue directive supportive care plan to reinforce hygiene, po intake and milieu visibility and groups; ECG to be done this pm 11/14/16 DAY ' UPDATE: Nursing reports pt remains with residual vegetative syndromal depression thru the weekend but is showing some incremental improvement; med were changed over weekend - increasing Dobbins to 900 mg hs and decreasing Geodon to 60 mg qd and stopping Seroquel; po intake remains about 50 % and sleep variable. Pt had positive visit with apollobnd and son Monday, continues to attend selective groups ON EXAM: Pt appears brighter and speech less slowed; describes effective visit with family as referenced; meds reviewed as changed back to regimen begun on as unclear why changed and pt concerned about the changes. denies side effects and regimen in early phase. Pt positive about speaker phone conference with in AM. He reports to me in telephone contact that she looked better to him and son during visit. ASSESSMENT/PLAN: slow-paced improvement noted descriptively/ continue CP as d/ w Nursing; meds changes as referenced Medications Generic Name Dose Route Start Last Admin Trade Name Archie PRN Reason Stop Dose Admin Quetiapine Fumarate 25 mg 11/14/16 21:00 Seroquel PO 05/13/17 20:59 HS CLYDE Ziprasidone 40 mg 11/14/16 18:00 Geodon PO 05/13/17 17:59 BIDMEAL CLYDE Dobbins Carbonate 300 mg 11/14/16 21:00 Lithobid PO 05/13/17 20:59 BID CLYDE 11/14/16 11:39 11/15/16 11:51 DAY ' UPDATE: Nursing reports pt continues to make paced progress with some improvement in po intake, more regular group attendance, lessening syndromal depressed appearance; pt c//w cares and meds ON EXAM: Pt presents as cooperative, calm, conversant; today speech more slowed and tone more negativistic; pt particularly c/o memory slippage with limited response to my supportive/clarification input; also c/o oversleeping this AM and sense of being transiently sedated this AM; we agree on halving the Seroquel dose; unfortunately I was late to bring pt in for the speaker phone meeting with and the telephone line remained busy for extended period - pt thought phone was off hook and had gone out as he has fixed routine about when he is home or out. She understands we will try later; she also understands that I will request Dietary consultation as she wishes to gain weight - reporting a 15 lb wgt loss over the duration of the current depression. ASSESSMENT/PLAN: residual depressive acuity- less improvement over last 24 hours / will decrease Seroquel to 12.5 mg, continue reintegrative CP, request Dietary consultation, try to reach later t 11/16/16 15:42 DAY ' UPDATE: Nursing reports pt slept less with decreased Seroquel dosing; appetite slightly better; residual depressive sx INTAKE; case reviewed yesterday PM with Dr. Chavira - she reports pt's depressive episodes typically clear slowly; recommends resuming trial of Lexapro which was worked and many AD's have failed previously; agrees with other meds altho states pt typically sedates by hx on multiple anti[psychotics. ON EXAM: residual dysphoria but slightly briter and more available GEOVANNA; + telephonic response to HOC in speaker phone contact; meds reviewed in detail with changes as referenced; more responsive today to clarification and support. ASSESSMENT/PLAN: slightly improved/ will continue reintegrative CP as d/w Nursing Medications Generic Name Dose Route Start Last Admin Trade Name Freq PRN Reason Stop Dose Admin Dobbins Carbonate 300 mg 11/14/16 21:00 11/16/16 09:57 Lithobid PO 05/13/17 20:59 300 mg BID CLYDE Escitalopram Oxalate 10 mg 11/16/16 09:30 11/16/16 09:57 Lexapro PO 05/15/17 09:29 10 mg DAILY CLYDE Ziprasidone 20 mg 11/16/16 10:30 11/16/16 10:44 Geodon PO 05/15/17 10:29 20 mg BIDMEAL CLYDE 11/17/16 08:36 DAY ' UPDATE: Pt presents with residual syndromal depressive acuity -vegetative sx remain prominent per Nursing report oN EXAM: Pt presents with depressive facies, dysphoric mood blunted with slowed speech; no change if not slitely more retarded; meds reviewed in detail, Dietary consultation reviewed and D/W Nursing with patient; pt responsive to clarification and support. ASSESSMENT/PLAN: unimproved over last 24hs/ meds changed as referenced; CP continued as d/w Nursing Medications Generic Name Dose Route Start Last Admin Trade Name Freq PRN Reason Stop Dose Admin Escitalopram Oxalate 20 mg 11/18/16 09:00 Lexapro PO 05/17/17 08:59 DAILY CLYDE Dobbins Carbonate 300 mg 11/14/16 21:00 11/17/16 08:26 Lithobid PO 05/13/17 20:59 300 mg BID CLYDE Modafinil 100 mg 11/17/16 13:30 Provigil PO 05/16/17 13:29 DAILY CLYDE Quetiapine Fumarate 25 mg 11/17/16 21:00 Seroquel PO 05/16/17 20:59 HS CLYDE UPDATE: 11/18/16 11:31 UPDATE: Nursing reports slow-paced progress continues; po intake better, social presence in milieu increasing and pt keeping with group attendance; did not comply with Provigil dose this AM - c/o UE tremors not observed by Nursing when took first dose yesterday ON EXAM: presents as cooperative, conversant, calm; appears to have more spontaneous and less retarded speech today; negativistic but can be redirected; reviewed treatment plan operations, meds, and updated status in concrete detail ; pt agrees to take Provigil after session. Did engage again in supportive speaker phone contact with the pt and myself. He will visit with pt' s sister this LABS: TSH 2.3 on admission and today reported as 5.46; serum Dobbins level changed from 0.3 to 0.8 with dosing increase ASSESSMENT/PLAN: slow-paced progress over last 24 hrs/ no change in current meds ; continue to engage in reintegrative CP as d/w Nursing; will contact Dano about lab values 11/21/16 12:11 DAY ' UPDATE: Nursing reports pt made incremental progress over weekend; did comply with meds and cares, more withdrawn, po compromised at 505 - 75%; brightened up with visits from a friend and family; Nursing did observe fine finger tremors which may be related to the Provigil 100 mg qd which pt did comply with along with the Lexapro 20 mg qam. ON EXAM: presents as calm, cooperative; speech slowed and soft, mood dysphoric; some range of affect with smile when reporting multiple visits from good friend ; usual bowel complaints but states not needed laxative for 3 days. Remains interested in DC but recognizes further descriptive progress needed to warrant DC. ASSESSMENT/PLAN: residual syndromal depression - progress remains slow-paced/ will reassess med and confer with Dr Chavira today - ? increase Provigil or try low-dose Ritalin or Adderall; continue reintegrative CP d/w Nursing; discussed increase in TSH with Dr. Matson 11/18 - agreed no need to treat, observe only. 11/22/16 08:29 DAY ' UPDATE: Objective: Vital Signs Temp Pulse Resp BP Pulse Ox 36.5 C 56 L 12 143/85 H 95 11/22/16 06:23 11/22/16 06:23 11/22/16 06:23 11/22/16 06:23 11/22/16 06:23 Laboratory Results 11/20/16 06:40 ICD10 Worksheet Patient Problems: Problems Problem Status Onset Bipolar 1 disorder, manic, moderate Acute Cystocele, midline Acute
[2016-11-22] MEDS: POLYETHYLENE GLYCOL 3350 17 GM PKT PO SCH (09:38)
[2016-11-22] MEDS: CARVEDILOL 6.25 MG TAB PO SCH (09:41)
[2016-11-22] MEDS: MODAFINIL 100 MG TAB PO SCH (09:42)
[2016-11-22] MEDS: ESCITALOPRAM OXALATE 10 MG TAB PO SCH (09:42)
[2016-11-22] MEDS: ASPIRIN EC 81 MG TAB PO SCH (09:43)
[2016-11-22] MEDS: LITHIUM CARBONATE ER 300 MG TAB PO SCH ×2 (09:43→21:00)
--- NOTE | 2016-11-22 13:08 | SOAPPROG ---
SOAP Progress Note Assessment/Plan: Assessment: Plan: 11/07/16 14:26 DAY 4 UPDATE: 71 y/o MWF admitted to [address] ED after referred to ED by her [facility] psychiatrist for c/o depressive acuity with SI. Pt has h/o chronic depressve sx of recurrent nature and also has had 2 known manic episodes - most recently shortly before this admission with a subseguent switch into acute syndromal depression. major stressors a/w marital instability and pt initiating a divorce process which her resisted 3 months ago. She acid remover to [place] to be with sister in an alleged manic state, switched into depression and returned home and then worsened which led to this admission after visit with her psychiatrist. 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 since admission she's continued to c/o vegetative sx, has poor po intake, but is beginning to disclose more openly with staff. Currently complying with inpt meds as referenced; not observed to be psychotic or actively suicidal. 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 No evidence for psychosis ASSESSMENT/PLAN: residual depressive acuity but allied with rx plan/ will reassess meds, obtain Conley level, Team to obtain history from [facility] and son 11/09/16 16:33 DAY 5/ Service Date 11/08/16 UPDATE: Pt has become more regressed over the past 24 hours - less verbal, increasing noncompliance with medications; neglectful of self-care continues and Nursing report her ongoing resistance to performing or allowing assistance with hygiene; she does continue to take in adequate po intake ON EXAM: Pt presents as irritable, dismissive; as I persist in the contact she expresses overt PI, states that her is in the room, complains that I am showing her my genitalia. she then stops talking but continues to glare at me. Nursing has not observed this overt thought disordered pattern. She does nod agreement with my moving her Conley dosing to AM which she had requested of Nursing. INTAKE/SON:contact prior to examination above; son was confirming her chronic depressive history and the occurrence of only a few venice episodes including recently when she from and went to sister's in [facility]. He also affirmed the marital history is a chronically adversarial one with a pattern of argumentatveness but no previous separations or divorce proceedings ASSESSMENT/PLAN: residual severe depressive sx; transient circumscribed psychosis evident today/ will increase Abilify to 10 mg qd, formulate more concrete Care Plan with Nursing to address hygiene needs and overall cooperativeness. 11/10/16 08:10 DAY 6/ Service Date 11/09/16 UPDATE:Progress Note dated 11/08 was referencing an exam on a wrong pt misidentified as the patient. I saw the correct pt late in the day on 11/08/16 at which time she [resented as residually depressed but not evidenceing psychosis; she engage cooperatively and was resistant to allowing a serum Conley to be drawn of have me make any medication changes. UPDATE: Team reports pt continues largely unchanged woth significant residual syndromal depression,a/w vegetativ e sign, anhedonia, neglect of hygiene; also her meds c ompliance remians mixed. ON EXAM: pt engages cooperatively, actually makes better eye contact today; expresses despair about gaining any improvement but is responsive to directive support. She c/o drowsiness with the increased dose of Abilify which I agree to DC; she agrees to giving a Conley level in the AM. She also agrees with my calling who had called to speak to speak to me. We did complete a brief speaker phone contact with and scheduled a second call tomorrow. Medication changes reviewed and pt agreeable to further discussion in AM; hygiene needs also addressed. ASSESSMENT/PLAN: residual depressive acuity/ will anticipate meds changes after followup discussion with pt in AM; care plan focus on improving personal hygiene d/w Nurs 11/10/16 DAY 7 UPDATE: vegetative syndromal depression persists per Team report with little change ON EXAM: Pt presents as calm, dysphoric, cooperative,conversant; reiterates description of syndromal depression including low self-esteem; denies SI; able to engage in discussion of medications, focus on improving self care; RN met with pt and myself to review care plan assistance; also again spoke by speaker phone with which went well in supporting pt; meds changes below reviewed with pt.; nonpsychotic ASSESSMENT/PLAN: residual depressive acuity/ begin Colace 100 mg bid, Seroquel 25 mg hs (has helped sleep previously), Geodon 40 mg bid (pt never used vs long list of AD's she's tried with little effect including Latuda); lithium level pending; will obtain baseline EKG to check QtC interval 11/11/16 12:45 DAY 8 UPDATE : Team reports pt slept 11 hrs which pt affirms; staff observes significant residual syndromal depression c/w vegetative presentation; anhedonic , < 50% po intake, slowed speech and ambulation, passive SI; Conley level 0.3 ON EXAM: presents c/w mental status referenced above per staff observations; some perking up in response to directive support; is resistant to taking Geodon but did agree in this session to start today; she also heard will visit on Monday at 12n and appeared pleased about this. ASSESSMENT/PLAN: residual significant depressive acuity; sleep improving/ Ill increase Conley ER to 300 mg bid and otherwise no meds changes; continue directive supportive care plan to reinforce hygiene, po intake and milieu visibility and groups; ECG to be done this pm 11/14/16 DAY ' UPDATE: Nursing reports pt remains with residual vegetative syndromal depression thru the weekend but is showing some incremental improvement; med were changed over weekend - increasing Conley to 900 mg hs and decreasing Geodon to 60 mg qd and stopping Seroquel; po intake remains about 50 % and sleep variable. Pt had positive visit with apollobnd and son Monday, continues to attend selective groups ON EXAM: Pt appears brighter and speech less slowed; describes effective visit with family as referenced; meds reviewed as changed back to regimen begun on as unclear why changed and pt concerned about the changes. denies side effects and regimen in early phase. Pt positive about speaker phone conference with in AM. He reports to me in telephone contact that she looked better to him and son during visit. ASSESSMENT/PLAN: slow-paced improvement noted descriptively/ continue CP as d/ w Nursing; meds changes as referenced Medications Generic Name Dose Route Start Last Admin Trade Name Archie PRN Reason Stop Dose Admin Quetiapine Fumarate 25 mg 11/14/16 21:00 Seroquel PO 05/13/17 20:59 HS CLYDE Ziprasidone 40 mg 11/14/16 18:00 Geodon PO 05/13/17 17:59 BIDMEAL CLYDE Conley Carbonate 300 mg 11/14/16 21:00 Lithobid PO 05/13/17 20:59 BID CLYDE 11/14/16 11:39 11/15/16 11:51 DAY ' UPDATE: Nursing reports pt continues to make paced progress with some improvement in po intake, more regular group attendance, lessening syndromal depressed appearance; pt c//w cares and meds ON EXAM: Pt presents as cooperative, calm, conversant; today speech more slowed and tone more negativistic; pt particularly c/o memory slippage with limited response to my supportive/clarification input; also c/o oversleeping this AM and sense of being transiently sedated this AM; we agree on halving the Seroquel dose; unfortunately I was late to bring pt in for the speaker phone meeting with and the telephone line remained busy for extended period - pt thought phone was off hook and had gone out as he has fixed routine about when he is home or out. She understands we will try later; she also understands that I will request Dietary consultation as she wishes to gain weight - reporting a 15 lb wgt loss over the duration of the current depression. ASSESSMENT/PLAN: residual depressive acuity- less improvement over last 24 hours / will decrease Seroquel to 12.5 mg, continue reintegrative CP, request Dietary consultation, try to reach later t 11/16/16 15:42 DAY ' UPDATE: Nursing reports pt slept less with decreased Seroquel dosing; appetite slightly better; residual depressive sx INTAKE; case reviewed yesterday PM with Dr. Chavira - she reports pt's depressive episodes typically clear slowly; recommends resuming trial of Lexapro which was worked and many AD's have failed previously; agrees with other meds altho states pt typically sedates by hx on multiple anti[psychotics. ON EXAM: residual dysphoria but slightly briter and more available GEOVANNA; + telephonic response to HOC in speaker phone contact; meds reviewed in detail with changes as referenced; more responsive today to clarification and support. ASSESSMENT/PLAN: slightly improved/ will continue reintegrative CP as d/w Nursing Medications Generic Name Dose Route Start Last Admin Trade Name Freq PRN Reason Stop Dose Admin Conley Carbonate 300 mg 11/14/16 21:00 11/16/16 09:57 Lithobid PO 05/13/17 20:59 300 mg BID CLYDE Escitalopram Oxalate 10 mg 11/16/16 09:30 11/16/16 09:57 Lexapro PO 05/15/17 09:29 10 mg DAILY CLYDE Ziprasidone 20 mg 11/16/16 10:30 11/16/16 10:44 Geodon PO 05/15/17 10:29 20 mg BIDMEAL CLYDE 11/17/16 08:36 DAY ' UPDATE: Pt presents with residual syndromal depressive acuity -vegetative sx remain prominent per Nursing report oN EXAM: Pt presents with depressive facies, dysphoric mood blunted with slowed speech; no change if not slitely more retarded; meds reviewed in detail, Dietary consultation reviewed and D/W Nursing with patient; pt responsive to clarification and support. ASSESSMENT/PLAN: unimproved over last 24hs/ meds changed as referenced; CP continued as d/w Nursing Medications Generic Name Dose Route Start Last Admin Trade Name Freq PRN Reason Stop Dose Admin Escitalopram Oxalate 20 mg 11/18/16 09:00 Lexapro PO 05/17/17 08:59 DAILY CLYDE Conley Carbonate 300 mg 11/14/16 21:00 11/17/16 08:26 Lithobid PO 05/13/17 20:59 300 mg BID CLYDE Modafinil 100 mg 11/17/16 13:30 Provigil PO 05/16/17 13:29 DAILY CLYDE Quetiapine Fumarate 25 mg 11/17/16 21:00 Seroquel PO 05/16/17 20:59 HS CLYDE UPDATE: 11/18/16 11:31 UPDATE: Nursing reports slow-paced progress continues; po intake better, social presence in milieu increasing and pt keeping with group attendance; did not comply with Provigil dose this AM - c/o UE tremors not observed by Nursing when took first dose yesterday ON EXAM: presents as cooperative, conversant, calm; appears to have more spontaneous and less retarded speech today; negativistic but can be redirected; reviewed treatment plan operations, meds, and updated status in concrete detail ; pt agrees to take Provigil after session. Did engage again in supportive speaker phone contact with the pt and myself. He will visit with pt' s sister this LABS: TSH 2.3 on admission and today reported as 5.46; serum Conley level changed from 0.3 to 0.8 with dosing increase ASSESSMENT/PLAN: slow-paced progress over last 24 hrs/ no change in current meds ; continue to engage in reintegrative CP as d/w Nursing; will contact Dano about lab values 11/21/16 12:11 DAY ' UPDATE: Nursing reports pt made incremental progress over weekend; did comply with meds and cares, more withdrawn, po compromised at 505 - 75%; brightened up with visits from a friend and family; Nursing did observe fine finger tremors which may be related to the Provigil 100 mg qd which pt did comply with along with the Lexapro 20 mg qam. ON EXAM: presents as calm, cooperative; speech slowed and soft, mood dysphoric; some range of affect with smile when reporting multiple visits from good friend ; usual bowel complaints but states not needed laxative for 3 days. Remains interested in DC but recognizes further descriptive progress needed to warrant DC. ASSESSMENT/PLAN: residual syndromal depression - progress remains slow-paced/ will reassess med and confer with Dr Chavira today - ? increase Provigil or try low-dose Ritalin or Adderall; continue reintegrative CP d/w Nursing; discussed increase in TSH with Dr. Matson 11/18 - agreed no need to treat, observe only. 11/22/16 13:00 DAY ' UPDATE: Nursing reports pt is compliant with cares/med; barbrahector chris and in attending groups, attending better to self-care, expresses residual negativism. ON EXAM: presents as calm, cooperative, conversant; again negativistic but affective range is better; reviews meds, DC planning; understands she's not eligible for stepdown to and expresses preference to go home anyway; discuss details of necessary preparedness for DC home as including readiness to engage in d aily routine at home referencing 'function first to feel better second" ethos in followup approach to post DC rx plan; pt clearly understands and "will give it a try"; also agress to trial of adjunctive Ritalin @ 5 mg bid as I had discussed with her prescriber Dr Briones earlier today ASSESSMENT/PLAN: residual syndromal depression - slow improvement continues/ add Ritalin 5 mg bid to current meds/ CP continued per d/w Nursing; tentative DC for 11/25/16 Objective: Vital Signs Temp Pulse Resp BP Pulse Ox 36.5 C 90 12 143/85 H 95 11/22/16 06:23 11/22/16 09:41 11/22/16 06:23 11/22/16 09:41 11/22/16 06:23 Laboratory Results 11/20/16 06:40 ICD10 Worksheet Patient Problems: Problems Problem Status Onset Bipolar 1 disorder, manic, moderate Acute Cystocele, midline Acute
[2016-11-22] MEDS: DOCUSATE SODIUM 100 MG CAP PO SCH (21:00)
[2016-11-22] MEDS: QUEtiapine FUMARATE 25 MG TAB PO SCH (21:01)
--- NOTE | 2016-11-23 08:04 | SOAPPROG ---
SOAP Progress Note Assessment/Plan: Assessment: Plan: 11/07/16 14:26 DAY 4 UPDATE: 71 y/o MWF admitted to [address] ED after referred to ED by her [facility] psychiatrist for c/o depressive acuity with SI. Pt has h/o chronic depressve sx of recurrent nature and also has had 2 known manic episodes - most recently shortly before this admission with a subseguent switch into acute syndromal depression. major stressors a/w marital instability and pt initiating a divorce process which her resisted 3 months ago. 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 since admission she's continued to c/o vegetative sx, has poor po intake, but is beginning to disclose more openly with staff. Currently complying with inpt meds as referenced; not observed to be psychotic or actively suicidal. 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 No evidence for psychosis ASSESSMENT/PLAN: residual depressive acuity but allied with rx plan/ will reassess meds, obtain [place] level, Team to obtain history from [facility] and son 11/09/16 16:33 DAY 5/ Service Date 11/08/16 UPDATE: Pt has become more regressed over the past 24 hours - less verbal, increasing noncompliance with medications; neglectful of self-care continues and Nursing report her ongoing resistance to performing or allowing assistance with hygiene; she does continue to take in adequate po intake ON EXAM: Pt presents as irritable, dismissive; as I persist in the contact she expresses overt PI, states that her is in the room, complains that I am showing her my genitalia. she then stops talking but continues to glare at me. Nursing has not observed this overt thought disordered pattern. She does nod agreement with my moving her [place] dosing to AM which she had requested of Nursing. INTAKE/SON:contact prior to examination above; son was confirming her chronic depressive history and the occurrence of only a few venice episodes including recently when she from and went to sister's in [facility]. He also affirmed the marital history is a chronically adversarial one with a pattern of argumentatveness but no previous separations or divorce proceedings ASSESSMENT/PLAN: residual severe depressive sx; transient circumscribed psychosis evident today/ will increase Abilify to 10 mg qd, formulate more concrete Care Plan with Nursing to address hygiene needs and overall cooperativeness. 11/10/16 08:10 DAY 6/ Service Date 11/09/16 UPDATE:Progress Note dated 11/08 was referencing an exam on a wrong pt misidentified as the patient. I saw the correct pt late in the day on 11/08/16 at which time she [resented as residually depressed but not evidenceing psychosis; she engage cooperatively and was resistant to allowing a serum [place] to be drawn of have me make any medication changes. UPDATE: Team reports pt continues largely unchanged woth significant residual syndromal depression,a/w vegetativ e sign, anhedonia, neglect of hygiene; also her meds c ompliance remians mixed. ON EXAM: pt engages cooperatively, actually makes better eye contact today; expresses despair about gaining any improvement but is responsive to directive support. She c/o drowsiness with the increased dose of Abilify which I agree to DC; she agrees to giving a [place] level in the AM. She also agrees with my calling who had called to speak to speak to me. We did complete a brief speaker phone contact with and scheduled a second call tomorrow. Medication changes reviewed and pt agreeable to further discussion in AM; hygiene needs also addressed. ASSESSMENT/PLAN: residual depressive acuity/ will anticipate meds changes after followup discussion with pt in AM; care plan focus on improving personal hygiene d/w Nurs 11/10/16 DAY 7 UPDATE: vegetative syndromal depression persists per Team report with little change ON EXAM: Pt presents as calm, dysphoric, cooperative,conversant; reiterates description of syndromal depression including low self-esteem; denies SI; able to engage in discussion of medications, focus on improving self care; RN met with pt and myself to review care plan assistance; also again spoke by speaker phone with which went well in supporting pt; meds changes below reviewed with pt.; nonpsychotic ASSESSMENT/PLAN: residual depressive acuity/ begin Colace 100 mg bid, Seroquel 25 mg hs (has helped sleep previously), Geodon 40 mg bid (pt never used vs long list of AD's she's tried with little effect including Latuda); lithium level pending; will obtain baseline EKG to check QtC interval 11/11/16 12:45 DAY 8 UPDATE : Team reports pt slept 11 hrs which pt affirms; staff observes significant residual syndromal depression c/w vegetative presentation; anhedonic , < 50% po intake, slowed speech and ambulation, passive SI; [place] level 0.3 ON EXAM: presents c/w mental status referenced above per staff observations; some perking up in response to directive support; is resistant to taking Geodon but did agree in this session to start today; she also heard will visit on Monday at 12n and appeared pleased about this. ASSESSMENT/PLAN: residual significant depressive acuity; sleep improving/ Ill increase [place] ER to 300 mg bid and otherwise no meds changes; continue directive supportive care plan to reinforce hygiene, po intake and milieu visibility and groups; ECG to be done this pm 11/14/16 DAY ' UPDATE: Nursing reports pt remains with residual vegetative syndromal depression thru the weekend but is showing some incremental improvement; med were changed over weekend - increasing [place] to 900 mg hs and decreasing Geodon to 60 mg qd and stopping Seroquel; po intake remains about 50 % and sleep variable. Pt had positive visit with apollobnd and son Monday, continues to attend selective groups ON EXAM: Pt appears brighter and speech less slowed; describes effective visit with family as referenced; meds reviewed as changed back to regimen begun on as unclear why changed and pt concerned about the changes. denies side effects and regimen in early phase. Pt positive about speaker phone conference with in AM. He reports to me in telephone contact that she looked better to him and son during visit. ASSESSMENT/PLAN: slow-paced improvement noted descriptively/ continue CP as d/ w Nursing; meds changes as referenced Medications Generic Name Dose Route Start Last Admin Trade Name Archie PRN Reason Stop Dose Admin Quetiapine Fumarate 25 mg 11/14/16 21:00 Seroquel PO 05/13/17 20:59 HS CLYDE Ziprasidone 40 mg 11/14/16 18:00 Geodon PO 05/13/17 17:59 BIDMEAL CLYDE [place] Carbonate 300 mg 11/14/16 21:00 Lithobid PO 05/13/17 20:59 BID CLYDE 11/14/16 11:39 11/15/16 11:51 DAY ' UPDATE: Nursing reports pt continues to make paced progress with some improvement in po intake, more regular group attendance, lessening syndromal depressed appearance; pt c//w cares and meds ON EXAM: Pt presents as cooperative, calm, conversant; today speech more slowed and tone more negativistic; pt particularly c/o memory slippage with limited response to my supportive/clarification input; also c/o oversleeping this AM and sense of being transiently sedated this AM; we agree on halving the Seroquel dose; unfortunately I was late to bring pt in for the speaker phone meeting with and the telephone line remained busy for extended period - pt thought phone was off hook and had gone out as he has fixed routine about when he is home or out. She understands we will try later; she also understands that I will request Dietary consultation as she wishes to gain weight - reporting a 15 lb wgt loss over the duration of the current depression. ASSESSMENT/PLAN: residual depressive acuity- less improvement over last 24 hours / will decrease Seroquel to 12.5 mg, continue reintegrative CP, request Dietary consultation, try to reach later t 11/16/16 15:42 DAY ' UPDATE: Nursing reports pt slept less with decreased Seroquel dosing; appetite slightly better; residual depressive sx INTAKE; case reviewed yesterday PM with Dr. Chavira - she reports pt's depressive episodes typically clear slowly; recommends resuming trial of Lexapro which was worked and many AD's have failed previously; agrees with other meds altho states pt typically sedates by hx on multiple anti[psychotics. ON EXAM: residual dysphoria but slightly briter and more available GEOVANNA; + telephonic response to HOC in speaker phone contact; meds reviewed in detail with changes as referenced; more responsive today to clarification and support. ASSESSMENT/PLAN: slightly improved/ will continue reintegrative CP as d/w Nursing Medications Generic Name Dose Route Start Last Admin Trade Name Freq PRN Reason Stop Dose Admin [place] Carbonate 300 mg 11/14/16 21:00 11/16/16 09:57 Lithobid PO 05/13/17 20:59 300 mg BID CLYDE Escitalopram Oxalate 10 mg 11/16/16 09:30 11/16/16 09:57 Lexapro PO 05/15/17 09:29 10 mg DAILY CLYDE Ziprasidone 20 mg 11/16/16 10:30 11/16/16 10:44 Geodon PO 05/15/17 10:29 20 mg BIDMEAL CLYDE 11/17/16 08:36 DAY ' UPDATE: Pt presents with residual syndromal depressive acuity -vegetative sx remain prominent per Nursing report oN EXAM: Pt presents with depressive facies, dysphoric mood blunted with slowed speech; no change if not slitely more retarded; meds reviewed in detail, Dietary consultation reviewed and D/W Nursing with patient; pt responsive to clarification and support. ASSESSMENT/PLAN: unimproved over last 24hs/ meds changed as referenced; CP continued as d/w Nursing Medications Generic Name Dose Route Start Last Admin Trade Name Freq PRN Reason Stop Dose Admin Escitalopram Oxalate 20 mg 11/18/16 09:00 Lexapro PO 05/17/17 08:59 DAILY CLYDE [place] Carbonate 300 mg 11/14/16 21:00 11/17/16 08:26 Lithobid PO 05/13/17 20:59 300 mg BID CLYDE Modafinil 100 mg 11/17/16 13:30 Provigil PO 05/16/17 13:29 DAILY CLYDE Quetiapine Fumarate 25 mg 11/17/16 21:00 Seroquel PO 05/16/17 20:59 HS CLYDE UPDATE: 11/18/16 11:31 UPDATE: Nursing reports slow-paced progress continues; po intake better, social presence in milieu increasing and pt keeping with group attendance; did not comply with Provigil dose this AM - c/o UE tremors not observed by Nursing when took first dose yesterday ON EXAM: presents as cooperative, conversant, calm; appears to have more spontaneous and less retarded speech today; negativistic but can be redirected; reviewed treatment plan operations, meds, and updated status in concrete detail ; pt agrees to take Provigil after session. Did engage again in supportive speaker phone contact with the pt and myself. He will visit with pt' s sister this LABS: TSH 2.3 on admission and today reported as 5.46; serum [place] level changed from 0.3 to 0.8 with dosing increase ASSESSMENT/PLAN: slow-paced progress over last 24 hrs/ no change in current meds ; continue to engage in reintegrative CP as d/w Nursing; will contact Dano about lab values 11/21/16 12:11 DAY ' UPDATE: Nursing reports pt made incremental progress over weekend; did comply with meds and cares, more withdrawn, po compromised at 505 - 75%; brightened up with visits from a friend and family; Nursing did observe fine finger tremors which may be related to the Provigil 100 mg qd which pt did comply with along with the Lexapro 20 mg qam. ON EXAM: presents as calm, cooperative; speech slowed and soft, mood dysphoric; some range of affect with smile when reporting multiple visits from good friend ; usual bowel complaints but states not needed laxative for 3 days. Remains interested in DC but recognizes further descriptive progress needed to warrant DC. ASSESSMENT/PLAN: residual syndromal depression - progress remains slow-paced/ will reassess med and confer with Dr Chavira today - ? increase Provigil or try low-dose Ritalin or Adderall; continue reintegrative CP d/w Nursing; discussed increase in TSH with Dr. Matson 11/18 - agreed no need to treat, observe only. 11/22/16 13:00 DAY ' UPDATE: Nursing reports pt is compliant with cares/med; slightly brighter and is attending groups, attending better to self-care, expresses residual negativism. ON EXAM: presents as calm, cooperative, conversant; again negativistic but affective range is better; reviews meds, DC planning; understands she's not eligible for stepdown to and expresses preference to go home anyway; discuss details of necessary preparedness for DC home as including readiness to engage in daily routine at home referencing 'function first to feel better second" ethos in followup approach to post DC rx plan; pt clearly understands and "will give it a try"; also agrees to trial of adjunctive Ritalin @ 5 mg bid as I had discussed with her prescriber Dr Briones earlier today ASSESSMENT/PLAN: residual syndromal depression - slow improvement continues/ add Ritalin 5 mg bid to current meds/ CP continued per d/w Nursing; tentative DC for 11/25/16 11/23/16 11:00 DAY ' UPDATE: Objective: Vital Signs Temp Pulse Resp BP Pulse Ox 36.5 C 63 16 143/77 H 94 11/23/16 00:30 11/23/16 00:30 11/23/16 00:30 11/23/16 00:30 11/23/16 00:30 Laboratory Results 11/20/16 06:40 ICD10 Worksheet Patient Problems: Problems Problem Status Onset Bipolar 1 disorder, manic, moderate Acute Cystocele, midline Acute
[2016-11-23] MEDS: ESCITALOPRAM OXALATE 10 MG TAB PO SCH (08:56)
[2016-11-23] MEDS: ASPIRIN EC 81 MG TAB PO SCH (08:56)
[2016-11-23] MEDS: POLYETHYLENE GLYCOL 3350 17 GM PKT PO SCH (08:56)
[2016-11-23] MEDS: CARVEDILOL 6.25 MG TAB PO SCH (08:57)
[2016-11-23] MEDS: LITHIUM CARBONATE ER 300 MG TAB PO SCH ×2 (08:57→21:05)
--- NOTE | 2016-11-23 14:06 | SOAPPROG ---
SOAP Progress Note Assessment/Plan: Assessment: Plan: 11/07/16 14:26 DAY 4 UPDATE: 71 y/o MWF admitted to [address] ED after referred to ED by her [facility] psychiatrist for c/o depressive acuity with SI. Pt has h/o chronic depressve sx of recurrent nature and also has had 2 known manic episodes - most recently shortly before this admission with a subseguent switch into acute syndromal depression. major stressors a/w marital instability and pt initiating a divorce process which her resisted 3 months ago. She machine mover to [place] to be with sister in an alleged manic state, switched into depression and returned home and then worsened which led to this admission after visit with her psychiatrist. She'd been taking [id number] mg qd and [place] 150 mg bid [employer]. Her compliance with meds is uncertain [employer]UC[employer] and she'd not kept up with her outpt therapist. since admission she's continued to c/o vegetative sx, has poor po intake, but is beginning to disclose more openly with staff. Currently complying with inpt meds as referenced; not observed to be psychotic or actively suicidal. Probable marital stress is complicated by 's CVA 2 yrs ago which has left him with some residual and stressed as primary cork sorter ON EXAM: Pt presents as old-appearing 71 yo WF who cooperates with contact; mood depressed, speech slowed, reports passive SI; does provided open disclosure about chronic and acute history; states her wish to stay in marriage but is pessimistic about participating in her treatment and/or couples" rx despite his wanting her to stay in marriage; does agree to have one of her sons provide intake and support. No evidence for psychosis ASSESSMENT/PLAN: residual depressive acuity but allied with rx plan/ will reassess meds, obtain [place] level, Team to obtain history from [facility] and son 11/09/16 16:33 DAY 5/ Service Date 11/08/16 UPDATE: Pt has become more regressed over the past 24 hours - less verbal, increasing noncompliance with medications; neglectful of self-care continues and Nursing report her ongoing resistance to performing or allowing assistance with hygiene; she does continue to take in adequate po intake ON EXAM: Pt presents as irritable, dismissive; as I persist in the contact she expresses overt PI, states that her is in the room, complains that I am showing her my genitalia. she then stops talking but continues to glare at me. Nursing has not observed this overt thought disordered pattern. She does nod agreement with my moving her Ohio dosing to AM which she had requested of Nursing. INTAKE/SON:contact prior to examination above; son was confirming her chronic depressive history and the occurrence of only a few venice episodes including recently when she from and went to sister's in [facility]. He also affirmed the marital history is a chronically adversarial one with a pattern of argumentatveness but no previous separations or divorce proceedings ASSESSMENT/PLAN: residual severe depressive sx; transient circumscribed psychosis evident today/ will increase Abilify to 10 mg qd, formulate more concrete Care Plan with Nursing to address hygiene needs and overall cooperativeness. 11/10/16 08:10 DAY 6/ Service Date 11/09/16 UPDATE:Progress Note dated 11/08 was referencing an exam on a wrong pt misidentified as the patient. I saw the correct pt late in the day on 11/08/16 at which time she [resented as residually depressed but not evidenceing psychosis; she engage cooperatively and was resistant to allowing a serum Ohio to be drawn of have me make any medication changes. UPDATE: Team reports pt continues largely unchanged woth significant residual syndromal depression,a/w vegetativ e sign, anhedonia, neglect of hygiene; also her meds c ompliance remians mixed. ON EXAM: pt engages cooperatively, actually makes better eye contact today; expresses despair about gaining any improvement but is responsive to directive support. She c/o drowsiness with the increased dose of Abilify which I agree to DC; she agrees to giving a [place] level in the AM. She also agrees with my calling who had called to speak to speak to me. We did complete a brief speaker phone contact with and scheduled a second call tomorrow. Medication changes reviewed and pt agreeable to further discussion in AM; hygiene needs also addressed. ASSESSMENT/PLAN: residual depressive acuity/ will anticipate meds changes after followup discussion with pt in AM; care plan focus on improving personal hygiene d/w Nurs 11/10/16 DAY 7 UPDATE: vegetative syndromal depression persists per Team report with little change ON EXAM: Pt presents as calm, dysphoric, cooperative,conversant; reiterates description of syndromal depression including low self-esteem; denies SI; able to engage in discussion of medications, focus on improving self care; RN met with pt and myself to review care plan assistance; also again spoke by speaker phone with which went well in supporting pt; meds changes below reviewed with pt.; nonpsychotic ASSESSMENT/PLAN: residual depressive acuity/ begin Colace 100 mg bid, Seroquel 25 mg hs (has helped sleep previously), Geodon 40 mg bid (pt never used vs long list of AD's she's tried with little effect including Latuda); lithium level pending; will obtain baseline EKG to check QtC interval 11/11/16 12:45 DAY 8 UPDATE : Team reports pt slept 11 hrs which pt affirms; staff observes significant residual syndromal depression c/w vegetative presentation; anhedonic , < 50% po intake, slowed speech and ambulation, passive SI; Ohio level 0.3 ON EXAM: presents c/w mental status referenced above per staff observations; some perking up in response to directive support; is resistant to taking Geodon but did agree in this session to start today; she also heard will visit on Monday at 12n and appeared pleased about this. ASSESSMENT/PLAN: residual significant depressive acuity; sleep improving/ Ill increase Ohio ER to 300 mg bid and otherwise no meds changes; continue directive supportive care plan to reinforce hygiene, po intake and milieu visibility and groups; ECG to be done this pm 11/14/16 DAY ' UPDATE: Nursing reports pt remains with residual vegetative syndromal depression thru the weekend but is showing some incremental improvement; med were changed over weekend - increasing [place] to 900 mg hs and decreasing Geodon to 60 mg qd and stopping Seroquel; po intake remains about 50 % and sleep variable. Pt had positive visit with apollobnd and son Monday, continues to attend selective groups ON EXAM: Pt appears brighter and speech less slowed; describes effective visit with family as referenced; meds reviewed as changed back to regimen begun on as unclear why changed and pt concerned about the changes. denies side effects and regimen in early phase. Pt positive about speaker phone conference with in AM. He reports to me in telephone contact that she looked better to him and son during visit. ASSESSMENT/PLAN: slow-paced improvement noted descriptively/ continue CP as d/ w Nursing; meds changes as referenced Medications Generic Name Dose Route Start Last Admin Trade Name Archie PRN Reason Stop Dose Admin Quetiapine Fumarate 25 mg 11/14/16 21:00 Seroquel PO 05/13/17 20:59 HS CLYDE Ziprasidone 40 mg 11/14/16 18:00 Geodon PO 05/13/17 17:59 BIDMEAL CLYDE [place] Carbonate 300 mg 11/14/16 21:00 Lithobid PO 05/13/17 20:59 BID CLYDE 11/14/16 11:39 11/15/16 11:51 DAY ' UPDATE: Nursing reports pt continues to make paced progress with some improvement in po intake, more regular group attendance, lessening syndromal depressed appearance; pt c//w cares and meds ON EXAM: Pt presents as cooperative, calm, conversant; today speech more slowed and tone more negativistic; pt particularly c/o memory slippage with limited response to my supportive/clarification input; also c/o oversleeping this AM and sense of being transiently sedated this AM; we agree on halving the Seroquel dose; unfortunately I was late to bring pt in for the speaker phone meeting with and the telephone line remained busy for extended period - pt thought phone was off hook and had gone out as he has fixed routine about when he is home or out. She understands we will try later; she also understands that I will request Dietary consultation as she wishes to gain weight - reporting a 15 lb wgt loss over the duration of the current depression. ASSESSMENT/PLAN: residual depressive acuity- less improvement over last 24 hours / will decrease Seroquel to 12.5 mg, continue reintegrative CP, request Dietary consultation, try to reach later t 11/16/16 15:42 DAY ' UPDATE: Nursing reports pt slept less with decreased Seroquel dosing; appetite slightly better; residual depressive sx INTAKE; case reviewed yesterday PM with Dr. Chavira - she reports pt's depressive episodes typically clear slowly; recommends resuming trial of Lexapro which was worked and many AD's have failed previously; agrees with other meds altho states pt typically sedates by hx on multiple anti[psychotics. ON EXAM: residual dysphoria but slightly briter and more available GEOVANNA; + telephonic response to HOC in speaker phone contact; meds reviewed in detail with changes as referenced; more responsive today to clarification and support. ASSESSMENT/PLAN: slightly improved/ will continue reintegrative CP as d/w Nursing Medications Generic Name Dose Route Start Last Admin Trade Name Freq PRN Reason Stop Dose Admin [place] Carbonate 300 mg 11/14/16 21:00 11/16/16 09:57 Lithobid PO 05/13/17 20:59 300 mg BID CLYDE Escitalopram Oxalate 10 mg 11/16/16 09:30 11/16/16 09:57 Lexapro PO 05/15/17 09:29 10 mg DAILY CLYDE Ziprasidone 20 mg 11/16/16 10:30 11/16/16 10:44 Geodon PO 05/15/17 10:29 20 mg BIDMEAL CLYDE 11/17/16 08:36 DAY ' UPDATE: Pt presents with residual syndromal depressive acuity -vegetative sx remain prominent per Nursing report oN EXAM: Pt presents with depressive facies, dysphoric mood blunted with slowed speech; no change if not slitely more retarded; meds reviewed in detail, Dietary consultation reviewed and D/W Nursing with patient; pt responsive to clarification and support. ASSESSMENT/PLAN: unimproved over last 24hs/ meds changed as referenced; CP continued as d/w Nursing Medications Generic Name Dose Route Start Last Admin Trade Name Freq PRN Reason Stop Dose Admin Escitalopram Oxalate 20 mg 11/18/16 09:00 Lexapro PO 05/17/17 08:59 DAILY CLYDE [place] Carbonate 300 mg 11/14/16 21:00 11/17/16 08:26 Lithobid PO 05/13/17 20:59 300 mg BID CLYDE Modafinil 100 mg 11/17/16 13:30 Provigil PO 05/16/17 13:29 DAILY CLYDE Quetiapine Fumarate 25 mg 11/17/16 21:00 Seroquel PO 05/16/17 20:59 HS CLYDE UPDATE: 11/18/16 11:31 UPDATE: Nursing reports slow-paced progress continues; po intake better, social presence in milieu increasing and pt keeping with group attendance; did not comply with Provigil dose this AM - c/o UE tremors not observed by Nursing when took first dose yesterday ON EXAM: presents as cooperative, conversant, calm; appears to have more spontaneous and less retarded speech today; negativistic but can be redirected; reviewed treatment plan operations, meds, and updated status in concrete detail ; pt agrees to take Provigil after session. Did engage again in supportive speaker phone contact with the pt and myself. He will visit with pt' s sister this LABS: TSH 2.3 on admission and today reported as 5.46; serum [place] level changed from 0.3 to 0.8 with dosing increase ASSESSMENT/PLAN: slow-paced progress over last 24 hrs/ no change in current meds ; continue to engage in reintegrative CP as d/w Nursing; will contact Dano about lab values 11/21/16 12:11 DAY ' UPDATE: Nursing reports pt made incremental progress over weekend; did comply with meds and cares, more withdrawn, po compromised at 505 - 75%; brightened up with visits from a friend and family; Nursing did observe fine finger tremors which may be related to the Provigil 100 mg qd which pt did comply with along with the Lexapro 20 mg qam. ON EXAM: presents as calm, cooperative; speech slowed and soft, mood dysphoric; some range of affect with smile when reporting multiple visits from good friend ; usual bowel complaints but states not needed laxative for 3 days. Remains interested in DC but recognizes further descriptive progress needed to warrant DC. ASSESSMENT/PLAN: residual syndromal depression - progress remains slow-paced/ will reassess med and confer with Dr Chavira today - ? increase Provigil or try low-dose Ritalin or Adderall; continue reintegrative CP d/w Nursing; discussed increase in TSH with Dr. Matson 11/18 - agreed no need to treat, observe only. 11/22/16 13:00 DAY ' UPDATE: Nursing reports pt is compliant with cares/med; slightly brighter and is attending groups, attending better to self-care, expresses residual negativism. ON EXAM: presents as calm, cooperative, conversant; again negativistic but affective range is better; reviews meds, DC planning; understands she's not eligible for stepdown to and expresses preference to go home anyway; discuss details of necessary preparedness for DC home as including readiness to engage in daily routine at home referencing 'function first to feel better second" ethos in followup approach to post DC rx plan; pt clearly understands and "will give it a try"; also agrees to trial of adjunctive Ritalin @ 5 mg bid as I had discussed with her prescriber Dr Briones earlier today ASSESSMENT/PLAN: residual syndromal depression - slow improvement continues/ add Ritalin 5 mg bid to current meds/ CP continued per d/w Nursing; tentative DC for 11/25/16 11/23/16 13:58 DAY ' UPDATE: Nursing reports pt continues paced progress; compliant with cares/med, attending and engaging in groups, appetite improving; + visit from sister last pm who brought in food which pt enjoyed; sleeptime im[proving ON EXAM: presents as calm, cooperative, conversant; speech sof but less slowed; sx updated, meds reviewd, DC planning discussed in detail with emphasis on pt having a routine after waking which she commits to following daily and detail therein looked at closely; I relate routine to current routine pt managing and explain it's value in diminishing the sx vs the negative impmpact of a "sedentary day"; pt engages and states her plan to followup; understand that her Ritalin will be increase to 10 mg bid to esolve her ongoin c/o of fatigue and low energy despite improving sleep time. ASSESSMENT/PLAN: as above paced improvement/ increase Ritalin to 10 mg bid, call pending to Cr. Chavira; plan speaker phone meeting with pt and HOC in am and DC 11/25 - finalizing DC planning Objective: Vital Signs Temp Pulse Resp BP Pulse Ox 36.9 C 70 16 156/74 H 96 11/23/16 08:00 11/23/16 08:00 11/23/16 08:00 11/23/16 08:00 11/23/16 08:00 Laboratory Results 11/20/16 06:40 ICD10 Worksheet Patient Problems: Problems Problem Status Onset Bipolar 1 disorder, manic, moderate Acute Cystocele, midline Acute
[2016-11-23] MEDS: DOCUSATE SODIUM 100 MG CAP PO SCH (21:04)
[2016-11-23] MEDS: QUEtiapine FUMARATE 25 MG TAB PO SCH (21:05)
--- NOTE | 2016-11-24 06:55 | SOAPPROG ---
SOAP Progress Note Assessment/Plan: Assessment: Plan: 11/07/16 14:26 DAY 4 UPDATE: 71 y/o MWF admitted to [address] ED after referred to ED by her [facility] psychiatrist for c/o depressive acuity with SI. Pt has h/o chronic depressve sx of recurrent nature and also has had 2 known manic episodes - most recently shortly before this admission with a subseguent switch into acute syndromal depression. major stressors a/w marital instability and pt initiating a divorce process which her resisted 3 months ago. She bench mover to [place] to be with sister in an alleged manic state, switched into depression and returned home and then worsened which led to this admission after visit with her psychiatrist. She'd been taking [id number] mg qd and Sparkill 150 mg bid [employer]. Her compliance with meds is uncertain [employer] and she'd not kept up with her outpt therapist. since admission she's continued to c/o vegetative sx, has poor po intake, but is beginning to disclose more openly with staff. Currently complying with inpt meds as referenced; not observed to be psychotic or actively suicidal. 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 No evidence for psychosis ASSESSMENT/PLAN: residual depressive acuity but allied with rx plan/ will reassess meds, obtain Sparkill level, Team to obtain history from [facility] and son 11/09/16 16:33 DAY 5/ Service Date 11/08/16 UPDATE: Pt has become more regressed over the past 24 hours - less verbal, increasing noncompliance with medications; neglectful of self-care continues and Nursing report her ongoing resistance to performing or allowing assistance with hygiene; she does continue to take in adequate po intake ON EXAM: Pt presents as irritable, dismissive; as I persist in the contact she expresses overt PI, states that her is in the room, complains that I am showing her my genitalia. she then stops talking but continues to glare at me. Nursing has not observed this overt thought disordered pattern. She does nod agreement with my moving her Sparkill dosing to AM which she had requested of Nursing. INTAKE/SON:contact prior to examination above; son was confirming her chronic depressive history and the occurrence of only a few venice episodes including recently when she from and went to sister's in [facility]. He also affirmed the marital history is a chronically adversarial one with a pattern of argumentatveness but no previous separations or divorce proceedings ASSESSMENT/PLAN: residual severe depressive sx; transient circumscribed psychosis evident today/ will increase Abilify to 10 mg qd, formulate more concrete Care Plan with Nursing to address hygiene needs and overall cooperativeness. 11/10/16 08:10 DAY 6/ Service Date 11/09/16 UPDATE:Progress Note dated 11/08 was referencing an exam on a wrong pt misidentified as the patient. I saw the correct pt late in the day on 11/08/16 at which time she [resented as residually depressed but not evidenceing psychosis; she engage cooperatively and was resistant to allowing a serum Sparkill to be drawn of have me make any medication changes. UPDATE: Team reports pt continues largely unchanged woth significant residual syndromal depression,a/w vegetativ e sign, anhedonia, neglect of hygiene; also her meds c ompliance remians mixed. ON EXAM: pt engages cooperatively, actually makes better eye contact today; expresses despair about gaining any improvement but is responsive to directive support. She c/o drowsiness with the increased dose of Abilify which I agree to DC; she agrees to giving a Sparkill level in the AM. She also agrees with my calling who had called to speak to speak to me. We did complete a brief speaker phone contact with and scheduled a second call tomorrow. Medication changes reviewed and pt agreeable to further discussion in AM; hygiene needs also addressed. ASSESSMENT/PLAN: residual depressive acuity/ will anticipate meds changes after followup discussion with pt in AM; care plan focus on improving personal hygiene d/w Nurs 11/10/16 DAY 7 UPDATE: vegetative syndromal depression persists per Team report with little change ON EXAM: Pt presents as calm, dysphoric, cooperative,conversant; reiterates description of syndromal depression including low self-esteem; denies SI; able to engage in discussion of medications, focus on improving self care; RN met with pt and myself to review care plan assistance; also again spoke by speaker phone with which went well in supporting pt; meds changes below reviewed with pt.; nonpsychotic ASSESSMENT/PLAN: residual depressive acuity/ begin Colace 100 mg bid, Seroquel 25 mg hs (has helped sleep previously), Geodon 40 mg bid (pt never used vs long list of AD's she's tried with little effect including Latuda); lithium level pending; will obtain baseline EKG to check QtC interval 11/11/16 12:45 DAY 8 UPDATE : Team reports pt slept 11 hrs which pt affirms; staff observes significant residual syndromal depression c/w vegetative presentation; anhedonic , < 50% po intake, slowed speech and ambulation, passive SI; Sparkill level 0.3 ON EXAM: presents c/w mental status referenced above per staff observations; some perking up in response to directive support; is resistant to taking Geodon but did agree in this session to start today; she also heard will visit on Monday at 12n and appeared pleased about this. ASSESSMENT/PLAN: residual significant depressive acuity; sleep improving/ Ill increase Sparkill ER to 300 mg bid and otherwise no meds changes; continue directive supportive care plan to reinforce hygiene, po intake and milieu visibility and groups; ECG to be done this pm 11/14/16 DAY ' UPDATE: Nursing reports pt remains with residual vegetative syndromal depression thru the weekend but is showing some incremental improvement; med were changed over weekend - increasing Sparkill to 900 mg hs and decreasing Geodon to 60 mg qd and stopping Seroquel; po intake remains about 50 % and sleep variable. Pt had positive visit with apollobnd and son Monday, continues to attend selective groups ON EXAM: Pt appears brighter and speech less slowed; describes effective visit with family as referenced; meds reviewed as changed back to regimen begun on as unclear why changed and pt concerned about the changes. denies side effects and regimen in early phase. Pt positive about speaker phone conference with in AM. He reports to me in telephone contact that she looked better to him and son during visit. ASSESSMENT/PLAN: slow-paced improvement noted descriptively/ continue CP as d/ w Nursing; meds changes as referenced Medications Generic Name Dose Route Start Last Admin Trade Name Archie PRN Reason Stop Dose Admin Quetiapine Fumarate 25 mg 11/14/16 21:00 Seroquel PO 05/13/17 20:59 HS CLYDE Ziprasidone 40 mg 11/14/16 18:00 Geodon PO 05/13/17 17:59 BIDMEAL CLYDE Sparkill Carbonate 300 mg 11/14/16 21:00 Lithobid PO 05/13/17 20:59 BID CLYDE 11/14/16 11:39 11/15/16 11:51 DAY ' UPDATE: Nursing reports pt continues to make paced progress with some improvement in po intake, more regular group attendance, lessening syndromal depressed appearance; pt c//w cares and meds ON EXAM: Pt presents as cooperative, calm, conversant; today speech more slowed and tone more negativistic; pt particularly c/o memory slippage with limited response to my supportive/clarification input; also c/o oversleeping this AM and sense of being transiently sedated this AM; we agree on halving the Seroquel dose; unfortunately I was late to bring pt in for the speaker phone meeting with and the telephone line remained busy for extended period - pt thought phone was off hook and had gone out as he has fixed routine about when he is home or out. She understands we will try later; she also understands that I will request Dietary consultation as she wishes to gain weight - reporting a 15 lb wgt loss over the duration of the current depression. ASSESSMENT/PLAN: residual depressive acuity- less improvement over last 24 hours / will decrease Seroquel to 12.5 mg, continue reintegrative CP, request Dietary consultation, try to reach later t 11/16/16 15:42 DAY ' UPDATE: Nursing reports pt slept less with decreased Seroquel dosing; appetite slightly better; residual depressive sx INTAKE; case reviewed yesterday PM with Dr. Chavira - she reports pt's depressive episodes typically clear slowly; recommends resuming trial of Lexapro which was worked and many AD's have failed previously; agrees with other meds altho states pt typically sedates by hx on multiple anti[psychotics. ON EXAM: residual dysphoria but slightly briter and more available GEOVANNA; + telephonic response to HOC in speaker phone contact; meds reviewed in detail with changes as referenced; more responsive today to clarification and support. ASSESSMENT/PLAN: slightly improved/ will continue reintegrative CP as d/w Nursing Medications Generic Name Dose Route Start Last Admin Trade Name Freq PRN Reason Stop Dose Admin Sparkill Carbonate 300 mg 11/14/16 21:00 11/16/16 09:57 Lithobid PO 05/13/17 20:59 300 mg BID CLYDE Escitalopram Oxalate 10 mg 11/16/16 09:30 11/16/16 09:57 Lexapro PO 05/15/17 09:29 10 mg DAILY CLYDE Ziprasidone 20 mg 11/16/16 10:30 11/16/16 10:44 Geodon PO 05/15/17 10:29 20 mg BIDMEAL CLYDE 11/17/16 08:36 DAY ' UPDATE: Pt presents with residual syndromal depressive acuity -vegetative sx remain prominent per Nursing report oN EXAM: Pt presents with depressive facies, dysphoric mood blunted with slowed speech; no change if not slitely more retarded; meds reviewed in detail, Dietary consultation reviewed and D/W Nursing with patient; pt responsive to clarification and support. ASSESSMENT/PLAN: unimproved over last 24hs/ meds changed as referenced; CP continued as d/w Nursing Medications Generic Name Dose Route Start Last Admin Trade Name Freq PRN Reason Stop Dose Admin Escitalopram Oxalate 20 mg 11/18/16 09:00 Lexapro PO 05/17/17 08:59 DAILY CLYDE Sparkill Carbonate 300 mg 11/14/16 21:00 11/17/16 08:26 Lithobid PO 05/13/17 20:59 300 mg BID CLYDE Modafinil 100 mg 11/17/16 13:30 Provigil PO 05/16/17 13:29 DAILY CLYDE Quetiapine Fumarate 25 mg 11/17/16 21:00 Seroquel PO 05/16/17 20:59 HS CLYDE UPDATE: 11/18/16 11:31 UPDATE: Nursing reports slow-paced progress continues; po intake better, social presence in milieu increasing and pt keeping with group attendance; did not comply with Provigil dose this AM - c/o UE tremors not observed by Nursing when took first dose yesterday ON EXAM: presents as cooperative, conversant, calm; appears to have more spontaneous and less retarded speech today; negativistic but can be redirected; reviewed treatment plan operations, meds, and updated status in concrete detail ; pt agrees to take Provigil after session. Did engage again in supportive speaker phone contact with the pt and myself. He will visit with pt' s sister this LABS: TSH 2.3 on admission and today reported as 5.46; serum Sparkill level changed from 0.3 to 0.8 with dosing increase ASSESSMENT/PLAN: slow-paced progress over last 24 hrs/ no change in current meds ; continue to engage in reintegrative CP as d/w Nursing; will contact Dano about lab values 11/21/16 12:11 DAY ' UPDATE: Nursing reports pt made incremental progress over weekend; did comply with meds and cares, more withdrawn, po compromised at 505 - 75%; brightened up with visits from a friend and family; Nursing did observe fine finger tremors which may be related to the Provigil 100 mg qd which pt did comply with along with the Lexapro 20 mg qam. ON EXAM: presents as calm, cooperative; speech slowed and soft, mood dysphoric; some range of affect with smile when reporting multiple visits from good friend ; usual bowel complaints but states not needed laxative for 3 days. Remains interested in DC but recognizes further descriptive progress needed to warrant DC. ASSESSMENT/PLAN: residual syndromal depression - progress remains slow-paced/ will reassess med and confer with Dr Chavira today - ? increase Provigil or try low-dose Ritalin or Adderall; continue reintegrative CP d/w Nursing; discussed increase in TSH with Dr. Matson 11/18 - agreed no need to treat, observe only. 11/22/16 13:00 DAY ' UPDATE: Nursing reports pt is compliant with cares/med; slightly brighter and is attending groups, attending better to self-care, expresses residual negativism. ON EXAM: presents as calm, cooperative, conversant; again negativistic but affective range is better; reviews meds, DC planning; understands she's not eligible for stepdown to and expresses preference to go home anyway; discuss details of necessary preparedness for DC home as including readiness to engage in daily routine at home referencing 'function first to feel better second" ethos in followup approach to post DC rx plan; pt clearly understands and "will give it a try"; also agrees to trial of adjunctive Ritalin @ 5 mg bid as I had discussed with her prescriber Dr Briones earlier today ASSESSMENT/PLAN: residual syndromal depression - slow improvement continues/ add Ritalin 5 mg bid to current meds/ CP continued per d/w Nursing; tentative DC for 11/25/16 11/23/16 13:58 DAY ' UPDATE: Nursing reports pt continues paced progress; compliant with cares/med, attending and engaging in groups, appetite improving; + visit from sister last pm who brought in food which pt enjoyed; sleep time improving ON EXAM: presents as calm, cooperative, conversant; speech soft but less slowed ; sx updated, meds reviewed, DC planning discussed in detail with emphasis on pt having a routine after waking which she commits to following daily and details therein looked at closely; I relate routine to current routine pt managing and explain it's value in diminishing the sx vs the negative impact of a "sedentary day"; pt engages and states her plan to followup; understand that her Ritalin will be increase to 10 mg bid to resolve her ongoin c/o of fatigue and low energy despite improving sleep time. ASSESSMENT/PLAN: as above paced improvement/ increase Ritalin to 10 mg bid, call pending to Dr. Chavira; plan speaker phone meeting with pt and HOC in am and DC 11/25 - finalizing DC planning 11/24/16 06:53 Objective: Vital Signs Temp Pulse Resp BP Pulse Ox 36.3 C 58 L 15 161/77 H 96 11/24/16 00:30 11/24/16 00:30 11/24/16 00:30 11/24/16 00:30 11/24/16 00:30 Laboratory Results 11/20/16 06:40 ICD10 Worksheet Patient Problems: Problems Problem Status Onset Bipolar 1 disorder, manic, moderate Acute Cystocele, midline Acute
[2016-11-24] MEDS: POLYETHYLENE GLYCOL 3350 17 GM PKT PO SCH (09:11)
[2016-11-24] MEDS: CARVEDILOL 6.25 MG TAB PO SCH (09:12)
[2016-11-24] MEDS: ASPIRIN EC 81 MG TAB PO SCH (09:12)
[2016-11-24] MEDS: LITHIUM CARBONATE ER 300 MG TAB PO SCH ×2 (09:12→20:47)
[2016-11-24] MEDS: ESCITALOPRAM OXALATE 10 MG TAB PO SCH (09:14)
[2016-11-24 09:53] VITALS: O2SAT 95
--- NOTE | 2016-11-24 14:50 | SOAPPROG ---
SOAP Progress Note Assessment/Plan: Assessment: Plan: 11/07/16 14:26 DAY 4 UPDATE: 71 y/o MWF admitted to [address] ED after referred to ED by her [facility] psychiatrist for c/o depressive acuity with SI. Pt has h/o chronic depressve sx of recurrent nature and also has had 2 known manic episodes - most recently shortly before this admission with a subseguent switch into acute syndromal depression. major stressors a/w marital instability and pt initiating a divorce process which her resisted 3 months ago. 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 since admission she's continued to c/o vegetative sx, has poor po intake, but is beginning to disclose more openly with staff. Currently complying with inpt meds as referenced; not observed to be psychotic or actively suicidal. 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 No evidence for psychosis ASSESSMENT/PLAN: residual depressive acuity but allied with rx plan/ will reassess meds, obtain Millboro level, Team to obtain history from [facility] and son 11/09/16 16:33 DAY 5/ Service Date 11/08/16 UPDATE: Pt has become more regressed over the past 24 hours - less verbal, increasing noncompliance with medications; neglectful of self-care continues and Nursing report her ongoing resistance to performing or allowing assistance with hygiene; she does continue to take in adequate po intake ON EXAM: Pt presents as irritable, dismissive; as I persist in the contact she expresses overt PI, states that her is in the room, complains that I am showing her my genitalia. she then stops talking but continues to glare at me. Nursing has not observed this overt thought disordered pattern. She does nod agreement with my moving her Millboro dosing to AM which she had requested of Nursing. INTAKE/SON:contact prior to examination above; son was confirming her chronic depressive history and the occurrence of only a few venice episodes including recently when she from and went to sister's in [facility]. He also affirmed the marital history is a chronically adversarial one with a pattern of argumentatveness but no previous separations or divorce proceedings ASSESSMENT/PLAN: residual severe depressive sx; transient circumscribed psychosis evident today/ will increase Abilify to 10 mg qd, formulate more concrete Care Plan with Nursing to address hygiene needs and overall cooperativeness. 11/10/16 08:10 DAY 6/ Service Date 11/09/16 UPDATE:Progress Note dated 11/08 was referencing an exam on a wrong pt misidentified as the patient. I saw the correct pt late in the day on 11/08/16 at which time she [resented as residually depressed but not evidenceing psychosis; she engage cooperatively and was resistant to allowing a serum Mill[place] to be drawn of have me make any medication changes. UPDATE: Team reports pt continues largely unchanged woth significant residual syndromal depression,a/w vegetativ e sign, anhedonia, neglect of hygiene; also her meds c ompliance remians mixed. ON EXAM: pt engages cooperatively, actually makes better eye contact today; expresses despair about gaining any improvement but is responsive to directive support. She c/o drowsiness with the increased dose of Abilify which I agree to DC; she agrees to giving a Millboro level in the AM. She also agrees with my calling who had called to speak to speak to me. We did complete a brief speaker phone contact with and scheduled a second call tomorrow. Medication changes reviewed and pt agreeable to further discussion in AM; hygiene needs also addressed. ASSESSMENT/PLAN: residual depressive acuity/ will anticipate meds changes after followup discussion with pt in AM; care plan focus on improving personal hygiene d/w Nurs 11/10/16 DAY 7 UPDATE: vegetative syndromal depression persists per Team report with little change ON EXAM: Pt presents as calm, dysphoric, cooperative,conversant; reiterates description of syndromal depression including low self-esteem; denies SI; able to engage in discussion of medications, focus on improving self care; RN met with pt and myself to review care plan assistance; also again spoke by speaker phone with which went well in supporting pt; meds changes below reviewed with pt.; nonpsychotic ASSESSMENT/PLAN: residual depressive acuity/ begin Colace 100 mg bid, Seroquel 25 mg hs (has helped sleep previously), Geodon 40 mg bid (pt never used vs long list of AD's she's tried with little effect including Latuda); lithium level pending; will obtain baseline EKG to check QtC interval 11/11/16 12:45 DAY 8 UPDATE : Team reports pt slept 11 hrs which pt affirms; staff observes significant residual syndromal depression c/w vegetative presentation; anhedonic , < 50% po intake, slowed speech and ambulation, passive SI; Millboro level 0.3 ON EXAM: presents c/w mental status referenced above per staff observations; some perking up in response to directive support; is resistant to taking Geodon but did agree in this session to start today; she also heard will visit on Monday at 12n and appeared pleased about this. ASSESSMENT/PLAN: residual significant depressive acuity; sleep improving/ Ill increase Millboro ER to 300 mg bid and otherwise no meds changes; continue directive supportive care plan to reinforce hygiene, po intake and milieu visibility and groups; ECG to be done this pm 11/14/16 DAY ' UPDATE: Nursing reports pt remains with residual vegetative syndromal depression thru the weekend but is showing some incremental improvement; med were changed over weekend - increasing Mill[place] to 900 mg hs and decreasing Geodon to 60 mg qd and stopping Seroquel; po intake remains about 50 % and sleep variable. Pt had positive visit with apollobnd and son Monday, continues to attend selective groups ON EXAM: Pt appears brighter and speech less slowed; describes effective visit with family as referenced; meds reviewed as changed back to regimen begun on as unclear why changed and pt concerned about the changes. denies side effects and regimen in early phase. Pt positive about speaker phone conference with in AM. He reports to me in telephone contact that she looked better to him and son during visit. ASSESSMENT/PLAN: slow-paced improvement noted descriptively/ continue CP as d/ w Nursing; meds changes as referenced Medications Generic Name Dose Route Start Last Admin Trade Name Archie PRN Reason Stop Dose Admin Quetiapine Fumarate 25 mg 11/14/16 21:00 Seroquel PO 05/13/17 20:59 HS CLYDE Ziprasidone 40 mg 11/14/16 18:00 Geodon PO 05/13/17 17:59 BIDMEAL CLYDE Mill[place] Carbonate 300 mg 11/14/16 21:00 Lithobid PO 05/13/17 20:59 BID CLYDE 11/14/16 11:39 11/15/16 11:51 DAY ' UPDATE: Nursing reports pt continues to make paced progress with some improvement in po intake, more regular group attendance, lessening syndromal depressed appearance; pt c//w cares and meds ON EXAM: Pt presents as cooperative, calm, conversant; today speech more slowed and tone more negativistic; pt particularly c/o memory slippage with limited response to my supportive/clarification input; also c/o oversleeping this AM and sense of being transiently sedated this AM; we agree on halving the Seroquel dose; unfortunately I was late to bring pt in for the speaker phone meeting with and the telephone line remained busy for extended period - pt thought phone was off hook and had gone out as he has fixed routine about when he is home or out. She understands we will try later; she also understands that I will request Dietary consultation as she wishes to gain weight - reporting a 15 lb wgt loss over the duration of the current depression. ASSESSMENT/PLAN: residual depressive acuity- less improvement over last 24 hours / will decrease Seroquel to 12.5 mg, continue reintegrative CP, request Dietary consultation, try to reach later t 11/16/16 15:42 DAY ' UPDATE: Nursing reports pt slept less with decreased Seroquel dosing; appetite slightly better; residual depressive sx INTAKE; case reviewed yesterday PM with Dr. Chavira - she reports pt's depressive episodes typically clear slowly; recommends resuming trial of Lexapro which was worked and many AD's have failed previously; agrees with other meds altho states pt typically sedates by hx on multiple anti[psychotics. ON EXAM: residual dysphoria but slightly briter and more available GEOVANNA; + telephonic response to HOC in speaker phone contact; meds reviewed in detail with changes as referenced; more responsive today to clarification and support. ASSESSMENT/PLAN: slightly improved/ will continue reintegrative CP as d/w Nursing Medications Generic Name Dose Route Start Last Admin Trade Name Freq PRN Reason Stop Dose Admin Mill[place] Carbonate 300 mg 11/14/16 21:00 11/16/16 09:57 Lithobid PO 05/13/17 20:59 300 mg BID CLYDE Escitalopram Oxalate 10 mg 11/16/16 09:30 11/16/16 09:57 Lexapro PO 05/15/17 09:29 10 mg DAILY CLYDE Ziprasidone 20 mg 11/16/16 10:30 11/16/16 10:44 Geodon PO 05/15/17 10:29 20 mg BIDMEAL CLYDE 11/17/16 08:36 DAY ' UPDATE: Pt presents with residual syndromal depressive acuity -vegetative sx remain prominent per Nursing report oN EXAM: Pt presents with depressive facies, dysphoric mood blunted with slowed speech; no change if not slitely more retarded; meds reviewed in detail, Dietary consultation reviewed and D/W Nursing with patient; pt responsive to clarification and support. ASSESSMENT/PLAN: unimproved over last 24hs/ meds changed as referenced; CP continued as d/w Nursing Medications Generic Name Dose Route Start Last Admin Trade Name Freq PRN Reason Stop Dose Admin Escitalopram Oxalate 20 mg 11/18/16 09:00 Lexapro PO 05/17/17 08:59 DAILY CLYDE Mill[place] Carbonate 300 mg 11/14/16 21:00 11/17/16 08:26 Lithobid PO 05/13/17 20:59 300 mg BID CLYDE Modafinil 100 mg 11/17/16 13:30 Provigil PO 05/16/17 13:29 DAILY CLYDE Quetiapine Fumarate 25 mg 11/17/16 21:00 Seroquel PO 05/16/17 20:59 HS CLYDE UPDATE: 11/18/16 11:31 UPDATE: Nursing reports slow-paced progress continues; po intake better, social presence in milieu increasing and pt keeping with group attendance; did not comply with Provigil dose this AM - c/o UE tremors not observed by Nursing when took first dose yesterday ON EXAM: presents as cooperative, conversant, calm; appears to have more spontaneous and less retarded speech today; negativistic but can be redirected; reviewed treatment plan operations, meds, and updated status in concrete detail ; pt agrees to take Provigil after session. Did engage again in supportive speaker phone contact with the pt and myself. He will visit with pt' s sister this LABS: TSH 2.3 on admission and today reported as 5.46; serum [place] level changed from 0.3 to 0.8 with dosing increase ASSESSMENT/PLAN: slow-paced progress over last 24 hrs/ no change in current meds ; continue to engage in reintegrative CP as d/w Nursing; will contact Dano about lab values 11/21/16 12:11 DAY ' UPDATE: Nursing reports pt made incremental progress over weekend; did comply with meds and cares, more withdrawn, po compromised at 505 - 75%; brightened up with visits from a friend and family; Nursing did observe fine finger tremors which may be related to the Provigil 100 mg qd which pt did comply with along with the Lexapro 20 mg qam. ON EXAM: presents as calm, cooperative; speech slowed and soft, mood dysphoric; some range of affect with smile when reporting multiple visits from good friend ; usual bowel complaints but states not needed laxative for 3 days. Remains interested in DC but recognizes further descriptive progress needed to warrant DC. ASSESSMENT/PLAN: residual syndromal depression - progress remains slow-paced/ will reassess med and confer with Dr Chavira today - ? increase Provigil or try low-dose Ritalin or Adderall; continue reintegrative CP d/w Nursing; discussed increase in TSH with Dr. Matson 11/18 - agreed no need to treat, observe only. 11/22/16 13:00 DAY ' UPDATE: Nursing reports pt is compliant with cares/med; slightly brighter and is attending groups, attending better to self-care, expresses residual negativism. ON EXAM: presents as calm, cooperative, conversant; again negativistic but affective range is better; reviews meds, DC planning; understands she's not eligible for stepdown to and expresses preference to go home anyway; discuss details of necessary preparedness for DC home as including readiness to engage in daily routine at home referencing 'function first to feel better second" ethos in followup approach to post DC rx plan; pt clearly understands and "will give it a try"; also agrees to trial of adjunctive Ritalin @ 5 mg bid as I had discussed with her prescriber Dr Briones earlier today ASSESSMENT/PLAN: residual syndromal depression - slow improvement continues/ add Ritalin 5 mg bid to current meds/ CP continued per d/w Nursing; tentative DC for 11/25/16 11/23/16 13:58 DAY UPDATE: Nursing reports pt continues paced progress; compliant with cares/med, attending and engaging in groups, appetite improving; + visit from sister last pm who brought in food which pt enjoyed; sleep time improving ON EXAM: presents as calm, cooperative, conversant; speech soft but less slowed ; sx updated, meds reviewed, DC planning discussed in detail with emphasis on pt having a routine after waking which she commits to following daily and details therein looked at closely; I relate routine to current routine pt managing and explain it's value in diminishing the sx vs the negative impact of a "sedentary day"; pt engages and states her plan to followup; understand that her Ritalin will be increased to 10 mg bid to resolve her ongoing c/o of fatigue and low energy despite improving sleep time. ASSESSMENT/PLAN: as above paced improvement/ increase Ritalin to 10 mg bid, call pending to Dr. Chavira; plan speaker phone meeting with pt and HOC in am and DC 11/25 - finalizing DC planning 11/24/16 12:40 DAY UPDATE: Pt reported by Nursing to continue paced improvement over last 24 hours , complying with daily routine which included visibility in milieu, group attendance with participation in quiet manner, compliance with med/cares, positive response to visits with HOC; present with slight increase in psychomotor energy and affective animation; syndromal update, meds review, and DCplanning discussed individually and with HOC speaker phone meeting; case reviewed in detail with Dr Chavira who also spoke with pt and agreed with current meds. ASSESSMENT/PLAN: paced improvement -sufficient for planned dc in aM tomorrow/ no change in meds; CP focus on final preparation for DC d/w Nursing Objective: Vital Signs Temp Pulse Resp BP Pulse Ox 36.6 C 78 14 129/66 H 95 11/24/16 09:50 11/24/16 09:50 11/24/16 09:50 11/24/16 09:50 11/24/16 09:50 Laboratory Results 11/20/16 06:40 ICD10 Worksheet Patient Problems: Problems Problem Status Onset Bipolar 1 disorder, manic, moderate Acute Cystocele, midline Acute
[2016-11-24] MEDS: DOCUSATE SODIUM 100 MG CAP PO SCH ×2 (20:46→20:47)
[2016-11-24] MEDS: QUEtiapine FUMARATE 25 MG TAB PO SCH (20:47)
[2016-11-25 06:32] VITALS: RESP 15
[2016-11-25] MEDS: LITHIUM CARBONATE ER 300 MG TAB PO SCH (08:57)
[2016-11-25] MEDS: ESCITALOPRAM OXALATE 10 MG TAB PO SCH (08:57)
[2016-11-25] MEDS: ASPIRIN EC 81 MG TAB PO SCH (08:57)
[2016-11-25] MEDS: POLYETHYLENE GLYCOL 3350 17 GM PKT PO SCH (08:57)
[2016-11-25] MEDS: CARVEDILOL 6.25 MG TAB PO SCH (08:57)
[2016-11-25 09:33] VITALS: BP 146/78; PULSE 74; TEMP 98.6
--- NOTE | 2016-11-25 12:29 | SOAPPROG ---
SOAP Progress Note Assessment/Plan: Assessment: Plan: 11/07/16 14:26 DAY 4 UPDATE: 71 y/o MWF admitted to [address] ED after referred to ED by her [facility] psychiatrist for c/o depressive acuity with SI. Pt has h/o chronic depressve sx of recurrent nature and also has had 2 known manic episodes - most recently shortly before this admission with a subseguent switch into acute syndromal depression. major stressors a/w marital instability and pt initiating a divorce process which her resisted 3 months ago. 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 She'd been taking [id number] mg qd and Luis M. Cintron 150 mg bid [facility]. Her compliance with meds is uncertain [facility] and she'd not kept up with her outpt therapist. since admission she's continued to c/o vegetative sx, has poor po intake, but is beginning to disclose more openly with staff. Currently complying with inpt meds as referenced; not observed to be psychotic or actively suicidal. 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 No evidence for psychosis ASSESSMENT/PLAN: residual depressive acuity but allied with rx plan/ will reassess meds, obtain Luis M. Cintron level, Team to obtain history from [facility] and son 11/09/16 16:33 DAY 5/ Service Date 11/08/16 UPDATE: Pt has become more regressed over the past 24 hours - less verbal, increasing noncompliance with medications; neglectful of self-care continues and Nursing report her ongoing resistance to performing or allowing assistance with hygiene; she does continue to take in adequate po intake ON EXAM: Pt presents as irritable, dismissive; as I persist in the contact she expresses overt PI, states that her is in the room, complains that I am showing her my genitalia. she then stops talking but continues to glare at me. Nursing has not observed this overt thought disordered pattern. She does nod agreement with my moving her Luis M. Cintron dosing to AM which she had requested of Nursing. INTAKE/SON:contact prior to examination above; son was confirming her chronic depressive history and the occurrence of only a few venice episodes including recently when she from and went to sister's in [facility]. He also affirmed the marital history is a chronically adversarial one with a pattern of argumentatveness but no previous separations or divorce proceedings ASSESSMENT/PLAN: residual severe depressive sx; transient circumscribed psychosis evident today/ will increase Abilify to 10 mg qd, formulate more concrete Care Plan with Nursing to address hygiene needs and overall cooperativeness. 11/10/16 08:10 DAY 6/ Service Date 11/09/16 UPDATE:Progress Note dated 11/08 was referencing an exam on a wrong pt misidentified as the patient. I saw the correct pt late in the day on 11/08/16 at which time she [resented as residually depressed but not evidenceing psychosis; she engage cooperatively and was resistant to allowing a serum Luis M. Cintron to be drawn of have me make any medication changes. UPDATE: Team reports pt continues largely unchanged woth significant residual syndromal depression,a/w vegetativ e sign, anhedonia, neglect of hygiene; also her meds c ompliance remians mixed. ON EXAM: pt engages cooperatively, actually makes better eye contact today; expresses despair about gaining any improvement but is responsive to directive support. She c/o drowsiness with the increased dose of Abilify which I agree to DC; she agrees to giving a Luis M. Cintron level in the AM. She also agrees with my calling who had called to speak to speak to me. We did complete a brief speaker phone contact with and scheduled a second call tomorrow. Medication changes reviewed and pt agreeable to further discussion in AM; hygiene needs also addressed. ASSESSMENT/PLAN: residual depressive acuity/ will anticipate meds changes after followup discussion with pt in AM; care plan focus on improving personal hygiene d/w Nurs 11/10/16 DAY 7 UPDATE: vegetative syndromal depression persists per Team report with little change ON EXAM: Pt presents as calm, dysphoric, cooperative,conversant; reiterates description of syndromal depression including low self-esteem; denies SI; able to engage in discussion of medications, focus on improving self care; RN met with pt and myself to review care plan assistance; also again spoke by speaker phone with which went well in supporting pt; meds changes below reviewed with pt.; nonpsychotic ASSESSMENT/PLAN: residual depressive acuity/ begin Colace 100 mg bid, Seroquel 25 mg hs (has helped sleep previously), Geodon 40 mg bid (pt never used vs long list of AD's she's tried with little effect including Latuda); lithium level pending; will obtain baseline EKG to check QtC interval 11/11/16 12:45 DAY 8 UPDATE : Team reports pt slept 11 hrs which pt affirms; staff observes significant residual syndromal depression c/w vegetative presentation; anhedonic , < 50% po intake, slowed speech and ambulation, passive SI; Luis M. Cintron level 0.3 ON EXAM: presents c/w mental status referenced above per staff observations; some perking up in response to directive support; is resistant to taking Geodon but did agree in this session to start today; she also heard will visit on Monday at 12n and appeared pleased about this. ASSESSMENT/PLAN: residual significant depressive acuity; sleep improving/ Ill increase Luis M. Cintron ER to 300 mg bid and otherwise no meds changes; continue directive supportive care plan to reinforce hygiene, po intake and milieu visibility and groups; ECG to be done this pm 11/14/16 DAY ' UPDATE: Nursing reports pt remains with residual vegetative syndromal depression thru the weekend but is showing some incremental improvement; med were changed over weekend - increasing Luis M. Cintron to 900 mg hs and decreasing Geodon to 60 mg qd and stopping Seroquel; po intake remains about 50 % and sleep variable. Pt had positive visit with apollobnd and son Monday, continues to attend selective groups ON EXAM: Pt appears brighter and speech less slowed; describes effective visit with family as referenced; meds reviewed as changed back to regimen begun on as unclear why changed and pt concerned about the changes. denies side effects and regimen in early phase. Pt positive about speaker phone conference with in AM. He reports to me in telephone contact that she looked better to him and son during visit. ASSESSMENT/PLAN: slow-paced improvement noted descriptively/ continue CP as d/ w Nursing; meds changes as referenced Medications Generic Name Dose Route Start Last Admin Trade Name Archie PRN Reason Stop Dose Admin Quetiapine Fumarate 25 mg 11/14/16 21:00 Seroquel PO 05/13/17 20:59 HS CLYDE Ziprasidone 40 mg 11/14/16 18:00 Geodon PO 05/13/17 17:59 BIDMEAL CLYDE Luis M. Cintron Carbonate 300 mg 11/14/16 21:00 Lithobid PO 05/13/17 20:59 BID CLYDE 11/14/16 11:39 11/15/16 11:51 DAY ' UPDATE: Nursing reports pt continues to make paced progress with some improvement in po intake, more regular group attendance, lessening syndromal depressed appearance; pt c//w cares and meds ON EXAM: Pt presents as cooperative, calm, conversant; today speech more slowed and tone more negativistic; pt particularly c/o memory slippage with limited response to my supportive/clarification input; also c/o oversleeping this AM and sense of being transiently sedated this AM; we agree on halving the Seroquel dose; unfortunately I was late to bring pt in for the speaker phone meeting with and the telephone line remained busy for extended period - pt thought phone was off hook and had gone out as he has fixed routine about when he is home or out. She understands we will try later; she also understands that I will request Dietary consultation as she wishes to gain weight - reporting a 15 lb wgt loss over the duration of the current depression. ASSESSMENT/PLAN: residual depressive acuity- less improvement over last 24 hours / will decrease Seroquel to 12.5 mg, continue reintegrative CP, request Dietary consultation, try to reach later t 11/16/16 15:42 DAY ' UPDATE: Nursing reports pt slept less with decreased Seroquel dosing; appetite slightly better; residual depressive sx INTAKE; case reviewed yesterday PM with Dr. Chavira - she reports pt's depressive episodes typically clear slowly; recommends resuming trial of Lexapro which was worked and many AD's have failed previously; agrees with other meds altho states pt typically sedates by hx on multiple anti[psychotics. ON EXAM: residual dysphoria but slightly briter and more available GEOVANNA; + telephonic response to HOC in speaker phone contact; meds reviewed in detail with changes as referenced; more responsive today to clarification and support. ASSESSMENT/PLAN: slightly improved/ will continue reintegrative CP as d/w Nursing Medications Generic Name Dose Route Start Last Admin Trade Name Freq PRN Reason Stop Dose Admin Luis M. Cintron Carbonate 300 mg 11/14/16 21:00 11/16/16 09:57 Lithobid PO 05/13/17 20:59 300 mg BID CLYDE Escitalopram Oxalate 10 mg 11/16/16 09:30 11/16/16 09:57 Lexapro PO 05/15/17 09:29 10 mg DAILY CLYDE Ziprasidone 20 mg 11/16/16 10:30 11/16/16 10:44 Geodon PO 05/15/17 10:29 20 mg BIDMEAL CLYDE 11/17/16 08:36 DAY ' UPDATE: Pt presents with residual syndromal depressive acuity -vegetative sx remain prominent per Nursing report oN EXAM: Pt presents with depressive facies, dysphoric mood blunted with slowed speech; no change if not slitely more retarded; meds reviewed in detail, Dietary consultation reviewed and D/W Nursing with patient; pt responsive to clarification and support. ASSESSMENT/PLAN: unimproved over last 24hs/ meds changed as referenced; CP continued as d/w Nursing Medications Generic Name Dose Route Start Last Admin Trade Name Freq PRN Reason Stop Dose Admin Escitalopram Oxalate 20 mg 11/18/16 09:00 Lexapro PO 05/17/17 08:59 DAILY CLYDE Luis M. Cintron Carbonate 300 mg 11/14/16 21:00 11/17/16 08:26 Lithobid PO 05/13/17 20:59 300 mg BID CLYDE Modafinil 100 mg 11/17/16 13:30 Provigil PO 05/16/17 13:29 DAILY CLYDE Quetiapine Fumarate 25 mg 11/17/16 21:00 Seroquel PO 05/16/17 20:59 HS CLYDE UPDATE: 11/18/16 11:31 UPDATE: Nursing reports slow-paced progress continues; po intake better, social presence in milieu increasing and pt keeping with group attendance; did not comply with Provigil dose this AM - c/o UE tremors not observed by Nursing when took first dose yesterday ON EXAM: presents as cooperative, conversant, calm; appears to have more spontaneous and less retarded speech today; negativistic but can be redirected; reviewed treatment plan operations, meds, and updated status in concrete detail ; pt agrees to take Provigil after session. Did engage again in supportive speaker phone contact with the pt and myself. He will visit with pt' s sister this LABS: TSH 2.3 on admission and today reported as 5.46; serum Luis M. Cintron level changed from 0.3 to 0.8 with dosing increase ASSESSMENT/PLAN: slow-paced progress over last 24 hrs/ no change in current meds ; continue to engage in reintegrative CP as d/w Nursing; will contact [facility] about lab values 11/21/16 12:11 DAY ' UPDATE: Nursing reports pt made incremental progress over weekend; did comply with meds and cares, more withdrawn, po compromised at 505 - 75%; brightened up with visits from a friend and family; Nursing did observe fine finger tremors which may be related to the Provigil 100 mg qd which pt did comply with along with the Lexapro 20 mg qam. ON EXAM: presents as calm, cooperative; speech slowed and soft, mood dysphoric; some range of affect with smile when reporting multiple visits from good friend ; usual bowel complaints but states not needed laxative for 3 days. Remains interested in DC but recognizes further descriptive progress needed to warrant DC. ASSESSMENT/PLAN: residual syndromal depression - progress remains slow-paced/ will reassess med and confer with Dr Chavira today - ? increase Provigil or try low-dose Ritalin or Adderall; continue reintegrative CP d/w Nursing; discussed increase in TSH with Dr. Matson 11/18 - agreed no need to treat, observe only. 11/22/16 13:00 DAY ' UPDATE: Nursing reports pt is compliant with cares/med; slightly brighter and is attending groups, attending better to self-care, expresses residual negativism. ON EXAM: presents as calm, cooperative, conversant; again negativistic but affective range is better; reviews meds, DC planning; understands she's not eligible for stepdown to and expresses preference to go home anyway; discuss details of necessary preparedness for DC home as including readiness to engage in daily routine at home referencing 'function first to feel better second" ethos in followup approach to post DC rx plan; pt clearly understands and "will give it a try"; also agrees to trial of adjunctive Ritalin @ 5 mg bid as I had discussed with her prescriber Dr Briones earlier today ASSESSMENT/PLAN: residual syndromal depression - slow improvement continues/ add Ritalin 5 mg bid to current meds/ CP continued per d/w Nursing; tentative DC for 11/25/16 11/23/16 13:58 DAY UPDATE: Nursing reports pt continues paced progress; compliant with cares/med, attending and engaging in groups, appetite improving; + visit from sister last pm who brought in food which pt enjoyed; sleep time improving ON EXAM: presents as calm, cooperative, conversant; speech soft but less slowed ; sx updated, meds reviewed, DC planning discussed in detail with emphasis on pt having a routine after waking which she commits to following daily and details therein looked at closely; I relate routine to current routine pt managing and explain it's value in diminishing the sx vs the negative impact of a "sedentary day"; pt engages and states her plan to followup; understand that her Ritalin will be increased to 10 mg bid to resolve her ongoing c/o of fatigue and low energy despite improving sleep time. ASSESSMENT/PLAN: as above paced improvement/ increase Ritalin to 10 mg bid, call pending to Dr. Chavira; plan speaker phone meeting with pt and HOC in am and DC 11/25 - finalizing DC planning 11/24/16 12:40 DAY UPDATE: Pt reported by Nursing to continue paced improvement over last 24 hours , complying with daily routine which included visibility in milieu, group attendance with participation in quiet manner, compliance with med/cares, positive response to visits with HOC; present with slight increase in psychomotor energy and affective animation; syndromal update, meds review, and DCplanning discussed individually and with HOC speaker phone meeting; case reviewed in detail with Dr Chavira who also spoke with pt and agreed with current meds. ASSESSMENT/PLAN: paced improvement -sufficient for planned dc in aM tomorrow/ no change in meds; CP focus on final preparation for DC d/w Nursing 11/25/16 12:28 Medications Generic Name Dose Route Start Last Admin Trade Name Freq PRN Reason Stop Dose Admin Luis M. Cintron Carbonate 300 mg 11/14/16 21:00 11/25/16 08:57 Lithobid PO 05/13/17 20:59 300 mg BID [facility] Docusate Sodium 100 - 200 mg 11/19/16 21:00 11/24/16 20:47 Colace PO 05/18/17 20:59 100 mg HS [facility] Escitalopram Oxalate 20 mg 11/18/16 09:00 11/25/16 08:57 Lexapro PO 05/17/17 08:59 20 mg DAILY [facility] Lorazepam 0.5 - 1 mg 11/04/16 00:45 11/05/16 20:32 Ativan PO 05/03/17 00:44 1 mg Q4HRS PRN Anxiety, Able to Take PO Aspirin Buffered 81 mg 11/05/16 09:00 11/25/16 08:57 Aspirin Ec PO 05/04/17 08:59 81 mg DAILY [facility] Carvedilol 12.5 mg 11/10/16 09:00 11/25/16 08:57 Coreg PO 05/09/17 08:59 12.5 mg DAILY [facility] Methylphenidate HCl 10 mg 11/23/16 15:00 11/25/16 08:57 Ritalin PO 05/22/17 14:59 10 mg BID@0800,1500 [facility] Nicotine Polacrilex 2 mg 11/04/16 00:45 Nicorette B 05/03/17 00:44 Q1HR PRN Nicotine Withdrawal Polyethylene Glycol 17 gm 11/19/16 09:00 11/25/16 08:57 Miralax PO 05/18/17 08:59 17 gm DAILY [facility] Quetiapine Fumarate 25 mg 11/17/16 21:00 11/24/16 20:47 Seroquel PO 05/16/17 20:59 25 mg HS [facility] Objective: Vital Signs Temp Pulse Resp BP Pulse Ox 37.0 C 74 15 146/78 H 95 11/25/16 09:32 11/25/16 09:32 11/25/16 00:30 11/25/16 09:32 11/25/16 09:32 Laboratory Results 11/20/16 06:40 ICD10 Worksheet Patient Problems: Problems Problem Status Onset Bipolar 1 disorder, manic, moderate Acute Cystocele, midline Acute
--- NOTE | 2016-11-25 14:29 | SOAPPROG ---
SOAP Progress Note Assessment/Plan: Assessment: Plan: 11/07/16 14:26 DAY 4 UPDATE: 71 y/o MWF admitted to [address] after referred to ED by her [facility] psychiatrist for c/o depressive acuity with SI. Pt has h/o chronic depressve sx of recurrent nature and also has had 2 known manic episodes - most recently shortly before this admission with a subseguent switch into acute syndromal depression. major stressors a/w marital instability and pt initiating a divorce process which her resisted 3 months ago. 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 She'd been taking [id number] mg qd and Warfield 150 mg bid DEVELOPMENTAL PSYCHOLOGIST. Her compliance with meds is uncertain DEVELOPMENTAL PSYCHOLOGIST and she'd not kept up with her outpt therapist. since admission she's continued to c/o vegetative sx, has poor po intake, but is beginning to disclose more openly with staff. Currently complying with inpt meds as referenced; not observed to be psychotic or actively suicidal. 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 No evidence for psychosis ASSESSMENT/PLAN: residual depressive acuity but allied with rx plan/ will reassess meds, obtain Warfield level, Team to obtain history from [facility] and son 11/09/16 16:33 DAY 5/ Service Date 11/08/16 UPDATE: Pt has become more regressed over the past 24 hours - less verbal, increasing noncompliance with medications; neglectful of self-care continues and Nursing report her ongoing resistance to performing or allowing assistance with hygiene; she does continue to take in adequate po intake ON EXAM: Pt presents as irritable, dismissive; as I persist in the contact she expresses overt PI, states that her is in the room, complains that I am showing her my genitalia. she then stops talking but continues to glare at me. Nursing has not observed this overt thought disordered pattern. She does nod agreement with my moving her Warfield dosing to AM which she had requested of Nursing. INTAKE/SON:contact prior to examination above; son was confirming her chronic depressive history and the occurrence of only a few venice episodes including recently when she from and went to sister's in [facility]. He also affirmed the marital history is a chronically adversarial one with a pattern of argumentatveness but no previous separations or divorce proceedings ASSESSMENT/PLAN: residual severe depressive sx; transient circumscribed psychosis evident today/ will increase Abilify to 10 mg qd, formulate more concrete Care Plan with Nursing to address hygiene needs and overall cooperativeness. 11/10/16 08:10 DAY 6/ Service Date 11/09/16 UPDATE:Progress Note dated 11/08 was referencing an exam on a wrong pt misidentified as the patient. I saw the correct pt late in the day on 11/08/16 at which time she [resented as residually depressed but not evidenceing psychosis; she engage cooperatively and was resistant to allowing a serum Warfield to be drawn of have me make any medication changes. UPDATE: Team reports pt continues largely unchanged woth significant residual syndromal depression,a/w vegetativ e sign, anhedonia, neglect of hygiene; also her meds c ompliance remians mixed. ON EXAM: pt engages cooperatively, actually makes better eye contact today; expresses despair about gaining any improvement but is responsive to directive support. She c/o drowsiness with the increased dose of Abilify which I agree to DC; she agrees to giving a Warfield level in the AM. She also agrees with my calling who had called to speak to speak to me. We did complete a brief speaker phone contact with and scheduled a second call tomorrow. Medication changes reviewed and pt agreeable to further discussion in AM; hygiene needs also addressed. ASSESSMENT/PLAN: residual depressive acuity/ will anticipate meds changes after followup discussion with pt in AM; care plan focus on improving personal hygiene d/w Nurs 11/10/16 DAY 7 UPDATE: vegetative syndromal depression persists per Team report with little change ON EXAM: Pt presents as calm, dysphoric, cooperative,conversant; reiterates description of syndromal depression including low self-esteem; denies SI; able to engage in discussion of medications, focus on improving self care; RN met with pt and myself to review care plan assistance; also again spoke by speaker phone with which went well in supporting pt; meds changes below reviewed with pt.; nonpsychotic ASSESSMENT/PLAN: residual depressive acuity/ begin Colace 100 mg bid, Seroquel 25 mg hs (has helped sleep previously), Geodon 40 mg bid (pt never used vs long list of AD's she's tried with little effect including Latuda); lithium level pending; will obtain baseline EKG to check QtC interval 11/11/16 12:45 DAY 8 UPDATE : Team reports pt slept 11 hrs which pt affirms; staff observes significant residual syndromal depression c/w vegetative presentation; anhedonic , < 50% po intake, slowed speech and ambulation, passive SI; Warfield level 0.3 ON EXAM: presents c/w mental status referenced above per staff observations; some perking up in response to directive support; is resistant to taking Geodon but did agree in this session to start today; she also heard will visit on Monday at 12n and appeared pleased about this. ASSESSMENT/PLAN: residual significant depressive acuity; sleep improving/ Ill increase Warfield ER to 300 mg bid and otherwise no meds changes; continue directive supportive care plan to reinforce hygiene, po intake and milieu visibility and groups; ECG to be done this pm 11/14/16 DAY ' UPDATE: Nursing reports pt remains with residual vegetative syndromal depression thru the weekend but is showing some incremental improvement; med were changed over weekend - increasing Warfield to 900 mg hs and decreasing Geodon to 60 mg qd and stopping Seroquel; po intake remains about 50 % and sleep variable. Pt had positive visit with apollobnd and son Monday, continues to attend selective groups ON EXAM: Pt appears brighter and speech less slowed; describes effective visit with family as referenced; meds reviewed as changed back to regimen begun on as unclear why changed and pt concerned about the changes. denies side effects and regimen in early phase. Pt positive about speaker phone conference with in AM. He reports to me in telephone contact that she looked better to him and son during visit. ASSESSMENT/PLAN: slow-paced improvement noted descriptively/ continue CP as d/ w Nursing; meds changes as referenced Medications Generic Name Dose Route Start Last Admin Trade Name Archie PRN Reason Stop Dose Admin Quetiapine Fumarate 25 mg 11/14/16 21:00 Seroquel PO 05/13/17 20:59 HS CLYDE Ziprasidone 40 mg 11/14/16 18:00 Geodon PO 05/13/17 17:59 BIDMEAL CLYDE Warfield Carbonate 300 mg 11/14/16 21:00 Lithobid PO 05/13/17 20:59 BID CLYDE 11/14/16 11:39 11/15/16 11:51 DAY ' UPDATE: Nursing reports pt continues to make paced progress with some improvement in po intake, more regular group attendance, lessening syndromal depressed appearance; pt c//w cares and meds ON EXAM: Pt presents as cooperative, calm, conversant; today speech more slowed and tone more negativistic; pt particularly c/o memory slippage with limited response to my supportive/clarification input; also c/o oversleeping this AM and sense of being transiently sedated this AM; we agree on halving the Seroquel dose; unfortunately I was late to bring pt in for the speaker phone meeting with and the telephone line remained busy for extended period - pt thought phone was off hook and had gone out as he has fixed routine about when he is home or out. She understands we will try later; she also understands that I will request Dietary consultation as she wishes to gain weight - reporting a 15 lb wgt loss over the duration of the current depression. ASSESSMENT/PLAN: residual depressive acuity- less improvement over last 24 hours / will decrease Seroquel to 12.5 mg, continue reintegrative CP, request Dietary consultation, try to reach later t 11/16/16 15:42 DAY ' UPDATE: Nursing reports pt slept less with decreased Seroquel dosing; appetite slightly better; residual depressive sx INTAKE; case reviewed yesterday PM with Dr. Chavira - she reports pt's depressive episodes typically clear slowly; recommends resuming trial of Lexapro which was worked and many AD's have failed previously; agrees with other meds altho states pt typically sedates by hx on multiple anti[psychotics. ON EXAM: residual dysphoria but slightly briter and more available GEOVANNA; + telephonic response to HOC in speaker phone contact; meds reviewed in detail with changes as referenced; more responsive today to clarification and support. ASSESSMENT/PLAN: slightly improved/ will continue reintegrative CP as d/w Nursing Medications Generic Name Dose Route Start Last Admin Trade Name Freq PRN Reason Stop Dose Admin Warfield Carbonate 300 mg 11/14/16 21:00 11/16/16 09:57 Lithobid PO 05/13/17 20:59 300 mg BID CLYDE Escitalopram Oxalate 10 mg 11/16/16 09:30 11/16/16 09:57 Lexapro PO 05/15/17 09:29 10 mg DAILY CLYDE Ziprasidone 20 mg 11/16/16 10:30 11/16/16 10:44 Geodon PO 05/15/17 10:29 20 mg BIDMEAL CLYDE 11/17/16 08:36 DAY ' UPDATE: Pt presents with residual syndromal depressive acuity -vegetative sx remain prominent per Nursing report oN EXAM: Pt presents with depressive facies, dysphoric mood blunted with slowed speech; no change if not slitely more retarded; meds reviewed in detail, Dietary consultation reviewed and D/W Nursing with patient; pt responsive to clarification and support. ASSESSMENT/PLAN: unimproved over last 24hs/ meds changed as referenced; CP continued as d/w Nursing Medications Generic Name Dose Route Start Last Admin Trade Name Freq PRN Reason Stop Dose Admin Escitalopram Oxalate 20 mg 11/18/16 09:00 Lexapro PO 05/17/17 08:59 DAILY CLYDE Warfield Carbonate 300 mg 11/14/16 21:00 11/17/16 08:26 Lithobid PO 05/13/17 20:59 300 mg BID CLYDE Modafinil 100 mg 11/17/16 13:30 Provigil PO 05/16/17 13:29 DAILY CLYDE Quetiapine Fumarate 25 mg 11/17/16 21:00 Seroquel PO 05/16/17 20:59 HS CLYDE UPDATE: 11/18/16 11:31 UPDATE: Nursing reports slow-paced progress continues; po intake better, social presence in milieu increasing and pt keeping with group attendance; did not comply with Provigil dose this AM - c/o UE tremors not observed by Nursing when took first dose yesterday ON EXAM: presents as cooperative, conversant, calm; appears to have more spontaneous and less retarded speech today; negativistic but can be redirected; reviewed treatment plan operations, meds, and updated status in concrete detail ; pt agrees to take Provigil after session. Did engage again in supportive speaker phone contact with the pt and myself. He will visit with pt' s sister this LABS: TSH 2.3 on admission and today reported as 5.46; serum Warfield level changed from 0.3 to 0.8 with dosing increase ASSESSMENT/PLAN: slow-paced progress over last 24 hrs/ no change in current meds ; continue to engage in reintegrative CP as d/w Nursing; will contact [facility] about lab values 11/21/16 12:11 DAY ' UPDATE: Nursing reports pt made incremental progress over weekend; did comply with meds and cares, more withdrawn, po compromised at 505 - 75%; brightened up with visits from a friend and family; Nursing did observe fine finger tremors which may be related to the Provigil 100 mg qd which pt did comply with along with the Lexapro 20 mg qam. ON EXAM: presents as calm, cooperative; speech slowed and soft, mood dysphoric; some range of affect with smile when reporting multiple visits from good friend ; usual bowel complaints but states not needed laxative for 3 days. Remains interested in DC but recognizes further descriptive progress needed to warrant DC. ASSESSMENT/PLAN: residual syndromal depression - progress remains slow-paced/ will reassess med and confer with Dr Chavira today - ? increase Provigil or try low-dose Ritalin or Adderall; continue reintegrative CP d/w Nursing; discussed increase in TSH with Dr. Matson 11/18 - agreed no need to treat, observe only. 11/22/16 13:00 DAY ' UPDATE: Nursing reports pt is compliant with cares/med; slightly brighter and is attending groups, attending better to self-care, expresses residual negativism. ON EXAM: presents as calm, cooperative, conversant; again negativistic but affective range is better; reviews meds, DC planning; understands she's not eligible for stepdown to and expresses preference to go home anyway; discuss details of necessary preparedness for DC home as including readiness to engage in daily routine at home referencing 'function first to feel better second" ethos in followup approach to post DC rx plan; pt clearly understands and "will give it a try"; also agrees to trial of adjunctive Ritalin @ 5 mg bid as I had discussed with her prescriber Dr Briones earlier today ASSESSMENT/PLAN: residual syndromal depression - slow improvement continues/ add Ritalin 5 mg bid to current meds/ CP continued per d/w Nursing; tentative DC for 11/25/16 11/23/16 13:58 DAY UPDATE: Nursing reports pt continues paced progress; compliant with cares/med, attending and engaging in groups, appetite improving; + visit from sister last pm who brought in food which pt enjoyed; sleep time improving ON EXAM: presents as calm, cooperative, conversant; speech soft but less slowed ; sx updated, meds reviewed, DC planning discussed in detail with emphasis on pt having a routine after waking which she commits to following daily and details therein looked at closely; I relate routine to current routine pt managing and explain it's value in diminishing the sx vs the negative impact of a "sedentary day"; pt engages and states her plan to followup; understand that her Ritalin will be increased to 10 mg bid to resolve her ongoing c/o of fatigue and low energy despite improving sleep time. ASSESSMENT/PLAN: as above paced improvement/ increase Ritalin to 10 mg bid, call pending to Dr. Chavira; plan speaker phone meeting with pt and HOC in am and DC 11/25 - finalizing DC planning 11/24/16 12:40 DAY UPDATE: Pt reported by Nursing to continue paced improvement over last 24 hours , complying with daily routine which included visibility in milieu, group attendance with participation in quiet manner, compliance with med/cares, positive response to visits with HOC; present with slight increase in psychomotor energy and affective animation; syndromal update, meds review, and DCplanning discussed individually and with HOC speaker phone meeting; case reviewed in detail with Dr Chavira who also spoke with pt and agreed with current meds. ASSESSMENT/PLAN: paced improvement -sufficient for planned dc in aM tomorrow/ no change in meds; CP focus on final preparation for DC d/w Nursing 11/25/16 12:28 Medications Generic Name Dose Route Start Last Admin Trade Name Freq PRN Reason Stop Dose Admin Warfield Carbonate 300 mg 11/14/16 21:00 11/25/16 08:57 Lithobid PO 05/13/17 20:59 300 mg BID CLYDE Docusate Sodium 100 - 200 mg 11/19/16 21:00 11/24/16 20:47 Colace PO 05/18/17 20:59 100 mg HS [facility] Escitalopram Oxalate 20 mg 11/18/16 09:00 11/25/16 08:57 Lexapro PO 05/17/17 08:59 20 mg DAILY CLYDE Lorazepam 0.5 - 1 mg 11/04/16 00:45 11/05/16 20:32 Ativan PO 05/03/17 00:44 1 mg Q4HRS PRN Anxiety, Able to Take PO Aspirin Buffered 81 mg 11/05/16 09:00 11/25/16 08:57 Aspirin Ec PO 05/04/17 08:59 81 mg DAILY [facility] Carvedilol 12.5 mg 11/10/16 09:00 11/25/16 08:57 Coreg PO 05/09/17 08:59 12.5 mg DAILY [facility] Methylphenidate HCl 10 mg 11/23/16 15:00 11/25/16 08:57 Ritalin PO 05/22/17 14:59 10 mg BID@0800,1500 [facility] Nicotine Polacrilex 2 mg 11/04/16 00:45 Nicorette B 05/03/17 00:44 Q1HR PRN Nicotine Withdrawal Polyethylene Glycol 17 gm 11/19/16 09:00 11/25/16 08:57 Miralax PO 05/18/17 08:59 17 gm DAILY [facility] Quetiapine Fumarate 25 mg 11/17/16 21:00 11/24/16 20:47 Seroquel PO 05/16/17 20:59 25 mg HS CLYDE 11/25/16 14:14 DAY ' Brief Discharge Note UPDATE: Nursing reports that pt continues to clears depressive sx in paced manner. She has been compliant with cares/ meds/ and applied Care Plan during her wakeful day. ON EXAM: Pt seen first alone and then with ; presents as calm, cooperative, conversant; thinking clear and goal-focussed; able to describe dC plan with emphasis on productive routine diring wakeful day at home which we again review with HOC who states his willingness to engage the pt willingly and offer support as he is home full-time with her. Meds reviiewed and followup with linic appointments clarified. Pt appears sufficiently stable for DC. ASESSMENT/PLAN: improving b/w residual depressive syndrome presence; allied with DC plan and ready for DC today DC today to return home w ith [facility] followup 11/29 and 12/05 with therapist and psychiatrist rcptv Med at DC as referenced above -30 day supply of Lexapro, 15 day supply of Ritalin and 30 day supply of non-psyoactive meds pcb' d at DC see DC summary Objective: Vital Signs Temp Pulse Resp BP Pulse Ox 37.0 C 74 15 146/78 H 95 11/25/16 09:32 11/25/16 09:32 11/25/16 00:30 11/25/16 09:32 11/25/16 09:32 Laboratory Results 11/20/16 06:40 ICD10 Worksheet Patient Problems: Problems Problem Status Onset Bipolar 1 disorder, manic, moderate Acute Cystocele, midline Acute
== END 2016-11-25 13:10 | disposition home or self-care (01) | DRG 885 ==
LOC: BBEH 11-04 00:20
PROVIDERS: ADMIT Psychiatry & Neurology Psychiatry; ATTEND Psychiatry & Neurology Behavioral Neurology & Neuropsychiatry
DX: F31.4 Bipolar disorder, current episode depressed, severe, without psychotic features (principal); I10 Essential (primary) hypertension; I25.10 Atherosclerotic heart disease of native coronary artery without angina pectoris; M81.0 Age-related osteoporosis without current pathological fracture; E83.52 Hypercalcemia; R63.4 Abnormal weight loss; I73.9 Peripheral vascular disease, unspecified
CPT/HCPCS: 80305; G0480

== ENCOUNTER → 2018-03-16 | Outpatient (CLI) | payer OTHER, MEDICARE | LOC: CIMAGING 10:18 | PROVIDERS: ATTEND Family Medicine | DX: Z12.31 Encounter for screening mammogram for malignant neoplasm of breast (principal) ==

== ENCOUNTER 2018-06-22 20:15 | Emergency (ER) | payer OTHER, MEDICARE ==
--- NOTE | 2018-06-22 21:14 | EDPHY ---
H & P Stated Complaint: says feeling unsteady walking, says has fallen each of the last 10 days Time Seen by Provider: 06/22/18 21:13 HPI/ROS: CHIEF COMPLAINT: "I am falling down every day" for 10 days HISTORY OF PRESENT ILLNESS: The patient is a 73 y/o female with a history of CAD , CVA, hypertension, and bipolar disorder complaining of frequent falls over the last 10 days. She describes going through her normal daily activities like showering, working in the kitchen, and sitting down when "all the sudden I fall asleep." She says, "it just happens" and "most time I don't known I'm falling." She wakes up on the floor with head pain or joint pain depending on what she struck during the fall. Currently she complains of "everywhere pain" when moving including her head, back, and several joints. She sometimes feels off balance while walking as well. She reports bilateral lower leg swelling worse on the right side for the last three weeks that is also causing difficulty walking. She reports a year ago she had swelling in one leg and was evaluated for a blood clot, which she did not have. She denies chest pain, dyspnea, fever , urinary symptoms, abdominal pain. No alcohol or drug use. REVIEW OF SYSTEMS: A ten system review of systems was performed and is negative with the exception of the items mentioned in the HPI. Past medical history: Hypertension; CVA age 55 "because I had very high uncontrolled blood pressure" with some residual weakness on the right side; bipolar disorder - [place]; hyperlipidemia; osteoporosis; incontinence Past surgical history: Ovarian cyst removal, appendectomy, laminectomy, hysterectomy, right wrist surgery Family history: Noncontributory Social history: Four days ago moved from [place] to independent living [facility]. still living in [place]. Originally from [facility], has been a [place] citizen for 28 years. Prior medical records reviewed including [facility], [facility] discharge summary . General Appearance: Alert. Vital signs reviewed. Eyes: Pupils equal and round, no conjunctival injection, no discharge. Anicteric. ENT, Mouth: Mucous membranes are moist, no oropharyngeal erythema or edema. Neck: No lymphadenopathy, supple. Respiratory: Lungs are clear to auscultation; no wheezes, rales, or rhonchi. Cardiovascular: Regular rate and rhythm; no murmur, rub, or gallop. Gastrointestinal: Abdomen is soft and nontender, no masses or organomegaly. Skin: Warm and dry, no rashes on exposed skin, normal color. Back: Nontender to palpation over the thoracolumbar spine. No CVAT. Extremities: 2+ symmetric bilateral lower extremity edema, no calf tenderness or swelling. Neurological: Alert and oriented. Moving all four extremities easily and equally. Cranial nerves II through XII are examined and are intact (visual acuity not tested). Strength is 5 over 5 bilaterally with testing of all major motor groups. Sensation is intact to light touch over all 4 extremities. Deep tendon reflexes are 2+ in the biceps and knees bilaterally. Gait is normal. [id number] is performed accurately. Psychiatric: Normal affect. Source: Patient - Personal History Tetanus Vaccine Date: unknown - Medical/Surgical History Hx Asthma: No Hx Chronic Respiratory Disease: No Hx Diabetes: No Hx Cardiac Disease: Yes Hx Renal Disease: No Hx Cirrhosis: No Hx Alcoholism: No Hx HIV/AIDS: No Hx Splenectomy or Spleen Trauma: No Other PMH: ovarian cyst removal; appendectomy; broken right wrist; laminectomy; HTN, cva, bipolar, hyperlipidemia - Social History Smoking Status: Never smoked Constitutional: Initial Vital Signs Temperature (C) 36.6 C 06/22/18 20:19 Heart Rate 78 06/22/18 20:19 Respiratory Rate 16 06/22/18 20:19 Blood Pressure 153/78 H 06/22/18 20:19 O2 Sat (%) 96 06/22/18 20:19 O2 Delivery Mode Room Air Allergies/Adverse Reactions: codeine [Codeine] Allergy (Severe, Verified 06/22/18 20:24) VOMIT Home Medications: Medication Instructions Recorded Cholecalciferol (Vitamin D3) 5,000 unit PO DAILY 08/27/14 [Vitamin D3] Acetaminophen [Tylenol 325mg (*)] 650 mg PO Q4HRS PRN #0 tab 11/25/16 Aspirin EC [Aspirin EC 81 mg (*)] 81 mg PO DAILY #30 tab 11/25/16 Carvedilol [Coreg] 12.5 mg PO DAILY #30 tablet 11/25/16 Docusate Sodium [Colace 100 MG (*)] 100 - 200 mg PO HS #60 cap 11/25/16 [place] Carbonate ER [Lithobid 300 300 mg PO BID #60 tab 11/25/16 mg (*)] Polyethylene Glycol 3350 [Miralax 17 gm PO DAILY #30 pkt 11/25/16 17 gm (*)] Medical Decision Making - Diagnostics Imaging: Discussed imaging studies w/ patient financial counselor Radiologist, I viewed and interpreted images myself ED Course/Re-evaluation: This is a 73 y/o female with a history of CAD, CVA, and hypertension who presents with a 10-day history of "falling asleep and falling every day." No acute trauma noted on exam apart from healing abrasion on her knee. Bilateral 2 + pedal edema noted. Plan for IV, labs, EKG, head CT. The 12 lead EKG was interpreted by myself. Sinus mechanism. See hard copy and/ or [facility] electronic copy for interpretation. Head CT: old basal ganglia and frontal infarcts. Labs, including lithium level (0.2), WNL or unrevealing in terms of providing diagnosis. Her neurologic exam is nonfocal and I do not suspect acute CVA. This is not lithium toxicity. She has been asymptomatic in ED--no seizure activity ( seizure is a possibility). She does not have signs/sx of infection, such as UTI , that might cause instability. Her description of symptoms does not suggest vertigo. Patient is walking through the department without assistance. I've found no concerning causes for her falls nor been able to replicate symptoms here. I had a long discussion with her regarding this and recommended following up with her PCP on Monday for further evaluation. We also discussed buying a walker to try at home to see if she felt more steady while using it. She agrees to this discharge plan. - Data Points Laboratory Results: Laboratory Results 06/22/18 20:30 06/22/18 21:43 Point of Care Test Results: Chemistry 06/22/18 20:41 POC Troponin I 0.00 ng/mL ng/mL (0.00-0.08) Departure - Departure Disposition: Home, Routine, Self-Care Clinical Impression: Falls Qualifiers: Encounter type: initial encounter Qualified Code(s): W19.XXXA - Unspecified fall, initial encounter Condition: Good Instructions: Fall Prevention for Older Adults (ED) Additional Instructions: Follow up with your primary care provider early next week for further evaluation. Your son can go to a medical supply store to buy a walker for you tomorrow. Return for worsening of condition. Referrals: Alin Careron MD [Primary Care Provider] - As per Instructions Report Scribed for: Echo Ruffin Report Scribed by: Nallely Lauren Date of Report: 06/22/18 Time of Report: 21:36 Physician Review and Approval Statement: 06/22/18 21:14 Portions of this note were transcribed by the medical office administrator. I, Dr. Echo Ruffin, personally performed the history, physical exam, and medical decision- making; and confirmed the accuracy of the information in the transcribed note.
[2018-06-22 21:45] LABS: PLATELET COUNT 315 10^3/uL (150-400)
[2018-06-22 23:08] VITALS: BP 150/70
--- NOTE | 2018-06-23 20:03 | CPEKG ---
Test Reason : OPEN Blood Pressure : / mmHG Vent. Rate : 073 BPM Atrial Rate : 073 BPM P-R Int : 173 ms QRS Dur : 077 ms QT Int : 383 ms P-R-T Axes : 049 031 042 degrees QTc Int : 422 ms Sinus rhythm Left atrial enlargement Minimal ST elevation, anterior leads Confirmed by Michael Foster ([id number]) on 06/23/2018 8:03:10 PM Referred By: Confirmed By:Michael Foster
== END 2018-06-22 23:07 | disposition home or self-care (01) ==
DX: R29.6 Repeated falls (principal); I10 Essential (primary) hypertension; F31.9 Bipolar disorder, unspecified; E78.5 Hyperlipidemia, unspecified
CPT/HCPCS: 84484-PO

== ENCOUNTER → 2018-06-26 | Outpatient (CLI) | payer OTHER, MEDICARE | LOC: CIMAGING 15:24 | PROVIDERS: ATTEND Family Medicine | DX: Z13.828 Encounter for screening for other musculoskeletal disorder (principal); M79.89 Other specified soft tissue disorders; R07.9 Chest pain, unspecified; R60.0 Localized edema | CPT/HCPCS: 93971-PO ==

== ENCOUNTER → 2018-06-26 | Outpatient (CLI) | payer OTHER, MEDICARE | LOC: FIMAGING 10:07 | PROVIDERS: ATTEND Family Medicine | DX: I70.0 Atherosclerosis of aorta (principal); R60.9 Edema, unspecified | CPT/HCPCS: 93971-PO ==

== ENCOUNTER → 2018-08-01 | Outpatient (CLI) | payer OTHER, MEDICARE | LOC: BHFA 14:00 | PROVIDERS: ATTEND Internal Medicine Cardiovascular Disease | DX: R07.9 Chest pain, unspecified (principal) ==

== ENCOUNTER → 2018-08-10 | Outpatient (CLI) | payer OTHER, MEDICARE | LOC: FCPNEURO 20:00 | PROVIDERS: ATTEND Psychiatry & Neurology Sleep Medicine | DX: G47.33 Obstructive sleep apnea (adult) (pediatric) (principal); G47.39 Other sleep apnea ==